=== PATIENT | male | born 1980 | race Caucasian/White ===

== ENCOUNTER 2019-12-31 07:44 | Outpatient (CLI) | payer BC, SELFPAY ==
--- NOTE | ~2019-12-31 | US_ITS ---
US right upper quadrant INDICATION: Right upper quadrant abdominal pain PROCEDURE: Realtime right upper abdominal ultrasound. COMPARISON: No prior studies for comparison. FINDINGS: The pancreas is normal without focal mass or pancreatic ductal dilation. Liver echotexture is increased, consistent with fatty infiltration. There is normal directional flow in the portal ve in. The gallbladder is normal without stones, gallbladder wall thickening or pericholecystic fluid. Comm on bile duct measures 4.7 mm. No sonographic Valentine's sign. IMPRESSION: 1: Fatty infiltration of the liver. Reviewed, dictated and finalized at location A.
== END 2019-12-31 07:45 | disposition home or self-care (01) ==
DX: R10.811 Right upper quadrant abdominal tenderness (principal)
CPT/HCPCS: 76705

== ENCOUNTER 2020-01-13 14:02 | Emergency (ER) | payer BC, SELFPAY ==
--- NOTE | ~2020-01-13 | XR_ITS ---
XR chest 2V DATE: 01/13/2020 15:01 INDICATION: Hyperglycemia. TECHNIQUE: PA and lateral views COMPARISON: 10/09/2017 two-view chest FINDINGS: Normal heart size. No hilar or mediastinal enlargement. No pulmonary infiltrate or consolidation, pleural effusion or pulmonary vascular congestion or pneumo thorax. There is mild/moderate degenerative spurring of the thoracic spine. IMPRESSION: No active cardiac pulmonary disease Reviewed, dictated and finalized at location A.
[2020-01-13 14:25] VITALS: BP 159/97; PULSE 66; RESP 20; TEMP 37.1; O2SAT 97
--- NOTE | 2020-01-13 14:41 | ECG_ITS ---
Measurements Intervals [place] Rate: 72 P: 39 AL: 181 QRS: 6 QRSD: 102 T: 20 QT: 366 QTc: 401 Interpretive Statements SINUS RHYTHM DELAYED PRECORDIAL R/S TRANSITION INFERIOR INFARCT, AGE INDETERMINATE BASELINE WANDER- III, AVF, V4-V6 ABNORMAL ECG Electronically Signed On 01-14-2020 7:11:25 CDT by Arie Slaughter D.O.
[2020-01-13 15:12] LABS: Hematocrit 43.9 % (40.0-54.0); Mean Corpuscular HGB Conc 34.2 g/dL (32.0-36.0); Mean Corpuscular Hemoglobin 28.8 pg (27.0-31.0); Mean Corpuscular Volume 84.3 fL (78.0-102.0); Mean Platelet Volume 8.9 fl (8.7-11.0); Platelet Count Result 197 K/mm3 (150-420); Red Blood Count 5.21 M/mm3 (4.70-6.10); Red Cell Distribution Width 12.3 % (11.6-14.4)
[2020-01-13 15:32] LABS: Alanine Aminotransferase 43 U/L (16-63); Albumin Level 3.4 g/dL (3.4-5.0); Alkaline Phosphatase 94 U/L (46-116); Anion Gap 11.2 mmol/L (7-16); Aspartate Amino Transferase 19 U/L (15-37); Bilirubin,Total 0.2 mg/dL (0.00-1.00); Blood Urea Nitrogen 18 mg/dL (7-18); Calcium 9.1 mg/dL (8.5-10.1); Carbon Dioxide 29 mmol/L (21-32); Chloride 102 mmol/L (98-108); Estimated CRCL calculation 108 ml/min; Estimated Glomerular Filt Rate > 60; Glucose 362 mg/dL (70-99); Osmolality Calculated 302 mOsm/kg (285-295); Potassium 4.2 mmol/L (3.5-5.1); Sodium 138 mmol/L (136-145); Total Protein 7.2 g/dL (6.4-8.2)
[2020-01-13] MEDS: INSULIN HUMAN REGULAR (*BKC) 100 UNITS/ML 8 UNITS SUB-Q (15:57)
[2020-01-13 16:03] VITALS: BP 155/84; PULSE 78; RESP 20; O2SAT 94
[2020-01-13 16:24] LABS: Bilirubin Urine Negative (Negative); Blood Urine Negative (Negative); Glucose Urine UA 3+ (Negative); Ketones Urine Negative (Negative); Leukocyte Esterase Ur Negative (Negative); Nitrate Urine Negative (Negative); Protein Urine Negative (Negative); Specific Grav Ur 1.015 (1.010-1.020); Urobilinogen Urine 0.2 mg/dL (0.2-1.0); pH Urine 6.5 (5.0-8.0)
[2020-01-13 16:33] LABS: Glucose Point of Care 210 (65-105)
--- NOTE | 2020-01-13 16:34 | PC.NURSE ---
pt states feeling much better . denies shakiness.
[2020-01-13 16:37] LABS: Color Urine Yellow (Yellow)
[2020-01-13 16:37] LABS: Troponin I < 0.02 ng/mL (0.00-0.056)
[2020-01-13 16:38] LABS: Add Urine Microscopic? YES; Appearance Urine Sl Cloudy (Clear); RBC Urine None seen /hpf (0-2); Squamous Epithelial Cell Urine Few /hpf (Few); WBC Urine 21-30 /hpf (0-3)
[2020-01-13 16:39] LABS: Bacteria Urine 2+ /hpf
--- NOTE | 2020-01-13 16:50 | ED.GENADULT ---
HPI - General Adult General Chief complaint: Unspecified Stated complaint: blood sugar high Source: patient Mode of arrival: ambulatory Limitations: no limitations History of Present Illness HPI narrative: This is a 39-year-old male diabetic presents with some mild have a blood sugar, at home he had a blood sugar reading of over 400 and presented to the emergency department with some no current symptoms no chest pain no shortness of breath no fever chills no nausea vomiting or abdominal pain is a known diabetic and recently his primary care physician stop the Jardiance. Does have a follow-up with his primary care in approximately 2 to 3 days. Onset (ago): hour(s) Relieving factors: none Exacerbating factors: none Associated symptoms: denies other symptoms Related Data Home Medications Medication Instructions Recorded Confirmed hydrocodone-acetaminophen 1 tablet PO DAILY PRN 01/13/20 01/13/20 losartan 25 mg PO DAILY 01/13/20 01/13/20 prazosin 1 mg PO DAILY 01/13/20 01/13/20 propranolol 40 mg PO BID 01/13/20 01/13/20 sertraline 200 mg PO DAILY 01/13/20 01/13/20 triamterene-hydrochlorothiazid 1 tablet PO DAILY 01/13/20 01/13/20 Allergies Allergy/AdvReac Type Severity Reaction Status Date / Time clarithromycin Allergy Unknown nausea, Verified 07/29/16 15:03 vomiting, abd cramps Review of Systems Review of Systems: All systems reviewed & are unremarkable except as noted in HPI and below PMFSH Past Medical History Medical History Diabetes mellitus Family History Family History Other Family history of malignant neoplasm Hypertension Social History Social History Smoking status: Never smoker Alcohol intake: current Exam Const: General: no acute distress Nutritional Appearance: well nourished and obese Orientation/consciousness: patient oriented x3 HENMT: Head: normal to inspection Eyes: Pupils: Equal, round and reactive pupils present Neck: Neck: normal visual inspection Chest: Chest palpation & inspection: normal inspection of the chest Resp: Effort & Inspection: normal respiratory effort Auscultation: clear to auscultation bilaterally Cardio: Rate: regular rate Rhythm: regular rhythm GI: GI Palp: Yes Soft to palpation : Testes: Testes normal Back/Spine/Pelvis: Back: no CVA tenderness Neuro: General: patient oriented x3, moves all extremities, no meningeal signs and no focal motor deficits Extrem: General: normal to inspection Psych: Appearance: grossly normal Mental Status: mental status grossly normal Affect: normal affect Thought content: Yes Normal thought content present Course Course Emergency Course: Patient blood sugar improved after 8units of insulin, his blood sugar currently reads at 210. Vital Signs Vital signs: Vital Signs Temperature 37.1 C 01/13/20 14:25 Pulse Rate 66 01/13/20 14:25 Respiratory Rate 20 01/13/20 14:25 Blood Pressure 159/97 H 01/13/20 14:25 Pulse Oximetry 97 01/13/20 14:25 Temperature 37.1 C 01/13/20 14:25 Pulse Rate 78 01/13/20 16:03 Respiratory Rate 20 01/13/20 16:03 Blood Pressure 155/84 H 01/13/20 16:03 Pulse Oximetry 94 01/13/20 16:03 Medical Decision Making Vital Signs Vital Signs: Vital Signs Temperature 37.1 C 01/13/20 14:25 Pulse Rate 66 01/13/20 14:25 Respiratory Rate 20 01/13/20 14:25 Blood Pressure 159/97 H 01/13/20 14:25 Pulse Oximetry 97 01/13/20 14:25 Temperature 37.1 C 01/13/20 14:25 Pulse Rate 78 01/13/20 16:03 Respiratory Rate 20 01/13/20 16:03 Blood Pressure 155/84 H 01/13/20 16:03 Pulse Oximetry 94 01/13/20 16:03 Lab Data Result diagrams: 01/13/20 15:08 01/13/20 15:08 Labs: Lab Results 01/13/20 01/13/20 01/13/20 Range/Units 1
[2020-01-13 17:00] VITALS: BP 183/98; PULSE 83; RESP 20; TEMP 37.1; O2SAT 97
== END 2020-01-13 17:17 | disposition home or self-care (01) ==
PROVIDERS: Emergency Provider Emergency Medicine
DX: E11.9 Type 2 diabetes mellitus without complications (principal); N39.0 Urinary tract infection, site not specified
CPT/HCPCS: 36415; 36600; 71046; 80053; 81001; 82948; 84484; 85027; 93005; 99283; 99284; J1815

== ENCOUNTER 2020-02-09 12:21 | Outpatient (CLI) | payer BC, SELFPAY ==
--- NOTE | ~2020-02-09 | MR_ITS ---
EXAMINATION: MR brain IAC wo/w con EXAM DATE: 02/09/2020 14:12 INDICATION: Hearing loss, getting cochlear implants. TECHNIQUE: Multi-sequential, multiplanar MR images of the brain, brainstem, internal auditory canals were obtained without contrast. Whole brain sagittal T1, axial diffusion, gradient echo (T2*), T1, T 2, FLAIR sequences obtained. High resolution coronal 3-D FIESTA, coronal T1 FSE, axial T1 FSPGR of t he internal auditory canals. Patient was then injected with 10 cc Multihance contrast intravenously. Postcontrast axial and coronal T1 weighted whole brain, axial and coronal high resolution T1 IAC seq uences obtained. There is no prior study for comparison. FINDINGS: No evidence of mastoid or middle ear opacification. The 7th/8th cranial nerve complexes a re symmetric, normal in course and caliber. No cerebellopontine angle masses. Posterior fossa unrem arkable. There is left mastoid effusion, and probably small amount of right mastoid opacity. There are no are as of restricted diffusion to suggest acute infarction. There is no acute hemorrhage seen on the T2* , a hemosiderin sensitive sequence. No intraparenchymal brain mass. The ventricles are normal in siz e. There are no extra-axial collections. Flow voids are seen in the cerebral arteries on the T2-damien ghted sequences consistent with their expected patency. The orbits are unremarkable. Soft tissue is unremarkable. There are no areas of abnormal enhancement on the postcontrast images. IMPRESSION: 1. Left mastoid effusion, smaller amount of right mastoid fluid. Reviewed, dictated and finalized at location A.
[2020-02-09 12:54] LABS: Estimated Glomerular Filt Rate > 60
== END 2020-02-09 12:22 | disposition home or self-care (01) ==
DX: H90.3 Sensorineural hearing loss, bilateral (principal); Z01.818 Encounter for other preprocedural examination
CPT/HCPCS: 70553; A9577

== ENCOUNTER 2020-11-21 09:06 | Outpatient (CLI) | payer OTHER, SELFPAY ==
--- NOTE | ~2020-11-21 | US_ITS ---
EXAMINATION: US retroperitoneal comp DATE: 11/21/2020 09:34 INDICATION: Left flank pain. Hematuria. TECHNIQUE: Multiple ultrasound grayscale images of the kidneys were obtained. COMPARISON: CT abdomen and pelvis 11/21/2020 FINDINGS: The right kidney measures 11.1 x 6.7 x 6.0 cm. The left kidney measures 11.8 x 7.2 x 6.2 cm. The kidn eys demonstrate normal parenchymal echogenicity. There is no hydronephrosis. The bladder is normal. IMPRESSION: 1. Normal kidneys. No hydronephrosis. Reviewed, dictated and finalized at location A. DINE OPERATOR
--- NOTE | ~2020-11-21 | CT_ITS ---
EXAMINATION: CT abdomen pelvis wo con DATE: 11/21/2020 09:25 INDICATION: Left flank pain. Hematuria. TECHNIQUE: Computed tomography (CT) of the abdomen and pelvis was performed without intravenous contr ast. Automated exposure control and iterative reconstruction technique were employed. The dose-length product was 1489.07 mGy-cm. COMPARISON: CT abdomen and pelvis 07/18/2017 FINDINGS: The visualized portions of the lung bases demonstrate minimal atelectasis on the right. No pleural effusion. The heart size is normal. No pericardial effusion. There is diffuse hepatic steatos is. The gallbladder, spleen, pancreas, adrenal glands, and kidneys are normal. There is no urolithias is. There are no dilated loops of bowel. There are no pathologically enlarged lymph nodes. There is n o free intraperitoneal fluid. There is mild thoracolumbar spondylosis. IMPRESSION: 1. No etiology for the patient's symptoms. Reviewed, dictated and finalized at location A. NING TECH
== END 2020-11-21 09:07 | disposition home or self-care (01) ==
PROVIDERS: PCP Family Medicine; Visit Provider Family Medicine
DX: R31.9 Hematuria, unspecified (principal); R10.9 Unspecified abdominal pain; M54.9 Dorsalgia, unspecified
CPT/HCPCS: 74176; 76770

== ENCOUNTER 2020-11-26 11:55 | Emergency (ER) | payer MEDICARE, SELFPAY ==
--- NOTE | ~2020-11-26 | CT_ITS ---
EXAMINATION: CT abdomen pelvis wo con EXAM DATE: 11/26/2020 12:41 INDICATION: Left flank pain, worsening. TECHNIQUE: Spiral CT of the abdomen and pelvis was performed without contrast. Axial, coronal and sag ittal images were reviewed. The dose-length product (DLP) for this examination was 1506.79 mGy-cm. The exposure was tailored according to patient size (auto mA exposure control), and iterative reconst ruction (ASIR) was used as additional dose reduction technique. Comparison is made to prior examinati on from 11/21/2020, 07/18/2017. FINDINGS: There is no nephrolithiasis or hydronephrosis. The prostate is unremarkable. The bladder is unremarkable. The liver, spleen, adrenal glands and pancreas are unremarkable. Gallbladder is u nremarkable. No biliary obstruction. Mildly enlarged lymph nodes identified along each internal ahmet ac chain, on the left at 1.8 x 1.1 cm. No other enlarged lymph nodes identified. These are likely constance ctive, with slight decrease in size compared to CT 2017. The appendix is normal. The stomach and small bowel are unremarkable. There is expected amount of c olonic stool. No free intraperitoneal gas. The heart is normal in size. There are no pericardial or pleural effusions. Right middle lobe subsegmental atelectasis. There are no osteoblastic or ost eolytic lesions identified. IMPRESSION: 1. No nephrolithiasis, hydronephrosis or acute intra-abdominal findings. 2. Chronic mild pelvic lymphadenopathy likely reactive. Reviewed, dictated and finalized at location B. LE TOE SNIPPING MACHINE OPERATOR
[2020-11-26] MEDS: KETOROLAC 30 MG/ML VIAL (*BKC) IM (12:32)
[2020-11-26] MEDS: ONDANSETRON INJ 4 MG/2 ML VIAL IV PUSH (12:32)
[2020-11-26] MEDS: MORPHINE SULFATE (*CRX) 4 MG/ML INJ IV PUSH (12:32)
[2020-11-26 12:34] VITALS: BP 157/98; PULSE 83; RESP 20; TEMP 36.3; O2SAT 98
--- NOTE | 2020-11-26 12:47 | ED.GENADULT ---
HPI - General Adult General Chief complaint: Urogenital-Male Stated complaint: kidney stone Source: patient and family Mode of arrival: ambulatory Limitations: no limitations History of Present Illness HPI narrative: Carli is a 40M with a PMH of nephrolithiasis, PUD, headaches, anxiety/depression/PTSD, IBS, HTN, DMII that came into ED with left flank pain. Severe left flank pain that radiates to his abdomen associated with dysuria but no hematuria. No new CP, SOB, melena, and hematochezia. Admits nausea but no vomiting. No trauma. Had a similar episode to this last week. Related Data Home Medications Medication Instructions Recorded Confirmed sertraline 200 mg PO DAILY 01/13/20 11/26/20 triamterene-hydrochlorothiazid 1 tablet PO DAILY 01/13/20 11/26/20 bupropion HCl 150 mg tablet,12 hr 150 mg PO BID 09/22/20 11/26/20 sustained-release dicyclomine 20 mg tablet 20 mg PO QID 09/22/20 11/26/20 empagliflozin 25 mg tablet 25 mg PO DAILY 09/22/20 11/26/20 famotidine 20 mg tablet 20 mg PO BID tablet 09/22/20 11/26/20 furosemide 20 mg tablet 20 mg PO QAM 09/22/20 11/26/20 galcanezumab-gnlm 120 mg/mL 120 mg SUBCUT MONTHLY 09/22/20 11/26/20 subcutaneous pen injector insulin glargine 100 unit/mL (3 10 unit SUBCUT DAILY ml 09/22/20 11/26/20 mL) subcutaneous pen losartan 100 mg tablet 100 mg PO DAILY 09/22/20 11/26/20 omeprazole 40 mg capsule,delayed 40 mg PO BID 09/22/20 11/26/20 release oxcarbazepine 300 mg tablet 300 mg PO BID 09/22/20 11/26/20 prazosin 1 mg capsule 1 mg PO QID cap 09/22/20 11/26/20 ubrogepant 50 mg tablet 50 mg PO ONCE 09/22/20 11/26/20 Allergies Allergy/AdvReac Type Severity Reaction Status Date / Time clarithromycin Allergy Unknown nausea, Verified 11/20/20 14:11 vomiting, abd cramps Review of Systems Constitutional: Constitutional: Reports no additional constitutional complaints, Denies chills and Denies fever(s) Eyes: Eyes: Reports no additional eye complaints ENT: Reports system reviewed and no additional complaints, except as documented Cardiovascular: Cardiovascular: Reports no additional cardiovascular complaints Respiratory: Respiratory: Reports no additional respiratory complaints Gastrointestinal: Gastrointestinal: Reports as per HPI Genitourinary: Genitourinary: Reports as per HPI Musculoskeletal: Musculoskeletal: Reports no additional musculoskeletal complaints Integumentary/Breasts: Skin/Breast: Reports system reviewed and no additional complaints, except as docu Neurologic: Reports system reviewed and no additional complaints, except as documented Psychiatric: Psychiatric: Reports no additional psychiatric complaints Endocrine: Endocrine: Reports no additional endocrine complaints Hematologic/Lymphatic: Hematologic/Lymphatic: Reports no additional hematologic/lymphatic complaints Allergic/Immunologic: Allergic/Immunologic: Reports no additional allergic/immunologic complaints [facility] Past Medical History Medical History Depression Diabetes mellitus Headache, chronic migraine without aura Hypertension IBS (irritable bowel syndrome) Obesity, Class III, BMI 40-49.9 (morbid obesity) PTSD (post-traumatic stress disorder) Torsion of testicle Family History Family History Other Family history of malignant neoplasm Hypertension Social History Social History Smoking status: Never smoker Alcohol intake: current Gender identity (if verbalized by the patient): Male Exam Const: General: alert; No confusion Orientation/consciousness: patient oriented x3 Limitations: No altered mental status Other: In mild to moderate distress HENMT: Other: Normocephalic, atraumatic, EOMI Eyes: Conjunctivae: conjunctivae normal Pupils: Equal, round and reactive pupils present Neck: Neck: normal
[2020-11-26 13:04] LABS: Add Urine Microscopic? YES; Appearance Urine Clear (Clear); Basophils Absolute Auto 0.03 K/mm3 (0.00-0.10); Basophils Percent Auto 0.7 % (0.0-1.0); Bilirubin Urine Negative (Negative); Blood Urine Negative (Negative); Color Urine Yellow (Yellow); Eosinophils Absolute Auto 0.08 K/mm3 (0.02-0.50); Eosinophils Percent Auto 1.9 % (1.0-6.0); Glucose Urine UA 3+ (Negative); Hematocrit 44.3 % (40.0-54.0); Hemoglobin 15.1 g/dL (14.0-18.0); Immature Granulocyte Absolute 0.01 K/mm3 (0.00-0.00); Immature Granulocyte Percent A 0.2 % (0.0-0.0); Ketones Urine Negative (Negative); Leukocyte Esterase Ur Negative (Negative); Lymphocytes Absolute Auto 1.41 K/mm3 (1.10-4.50); Lymphocytes Percent Auto 33.5 % (18.0-42.0); Mean Corpuscular HGB Conc 34.1 g/dL (32.0-36.0); Mean Corpuscular Hemoglobin 28.9 pg (27.0-31.0); Mean Corpuscular Volume 84.7 fL (78.0-102.0); Mean Platelet Volume 9.1 fl (8.7-11.0); Monocytes Absolute Auto 0.39 K/mm3 (0.10-0.90); Monocytes Percent Auto 9.3 % (2.0-11.0); Neutrophils Absolute Auto 2.3 K/mm3 (1.7-7.2); Neutrophils Percent Auto 54.4 % (50.0-70.0); Nitrate Urine Negative (Negative); Platelet Count Result 177 K/mm3 (150-420); Protein Urine Negative (Negative); Red Blood Count 5.23 M/mm3 (4.70-6.10); Red Cell Distribution Width 12.4 % (11.6-14.4); Specific Grav Ur 1.015 (1.010-1.020); Urobilinogen Urine 0.2 mg/dL (0.2-1.0); White Blood Count 4.2 K/mm3 (4.8-10.8); pH Urine 6.5 (5.0-8.0)
[2020-11-26 13:08] LABS: Bacteria Urine None seen /hpf; RBC Urine None seen /hpf (0-2); Squamous Epithelial Cell Urine Rare /hpf (Few); WBC Urine None seen /hpf (0-3)
[2020-11-26 13:19] LABS: Alanine Aminotransferase 49 U/L (16-63); Albumin Level 3.5 g/dL (3.4-5.0); Alkaline Phosphatase 90 U/L (46-116); Anion Gap 9 mmol/L (8-16); Aspartate Amino Transferase 15 U/L (15-37); Bilirubin,Total 0.4 mg/dL (0.00-1.00); Blood Urea Nitrogen 16 mg/dL (7-18); Calcium 9.2 mg/dL (8.5-10.1); Carbon Dioxide 29 mmol/L (21-32); Chloride 100 mmol/L (98-108); Estimated CRCL calculation 111 ml/min; Estimated Glomerular Filt Rate > 60; Glucose 335 mg/dL (70-99); Osmolality Calculated 300 mOsm/kg (285-295); Potassium 3.7 mmol/L (3.5-5.1); Sodium 138 mmol/L (136-145); Total Protein 7.2 g/dL (6.4-8.2)
[2020-11-26 13:20] LABS: Lipase 55 U/L (73-393)
[2020-11-26 14:40] VITALS: BP 145/105; PULSE 76; RESP 20; TEMP 36.7; O2SAT 98
== END 2020-11-26 16:00 | disposition home or self-care (01) ==
PROVIDERS: Emergency Provider Family Medicine; PCP Family Medicine
DX: R10.9 Unspecified abdominal pain (principal)
CPT/HCPCS: 36415; 74176; 80053; 81001; 83690; 85025; 87086; 96372; 96374; 96375; 99283; 99284; J1885; J2270; J2405

== ENCOUNTER 2021-10-09 09:25 | Outpatient (CLI) | payer MEDICARE, SELFPAY ==
--- NOTE | ~2021-10-09 | XR_ITS ---
XR_CERV2-3V_CR DATE: 10/09/2021 09:53 INDICATION: Left neck pain and left shoulder pain one month after fall TECHNIQUE: AP, lateral, open-mouth, swimmer views COMPARISON: 09/07/2014 cervical spine FINDINGS: C1 and C2 are normally aligned and the odontoid process is intact. There is mild degenerative disc disease and minimal retrolisthesis at C4-5. There is moderate degenerative disc disease with anterior posterior spurring at C5-6. The C6-7 level is not well demonstrated. There are bilateral elongated C7 transverse processes. No fracture or dislocation, locked facet or prevertebral soft tissue swelling is evident. IMPRESSION: Multilevel degenerative disc disease Reviewed, dictated and finalized at Location A. Reviewed, dictated and finalized at location A. EAR STATION OPERATOR
--- NOTE | ~2021-10-09 | XR_ITS ---
XR shoulder LT min 2V DATE: 10/09/2021 09:53 INDICATION: Left shoulder pain one month after fall TECHNIQUE: 4 views COMPARISON: None FINDINGS: No fracture or dislocation, periosteal reaction or bone destruction. Normal alignment at th e acromioclavicular and glenohumeral joints. IMPRESSION: No significant abnormality Reviewed, dictated and finalized at location A. MANUFACTURING COORDINATOR IMPRESSION: No significant abnormality
== END 2021-10-09 09:26 | disposition home or self-care (01) ==
LOC: CHSIMG 09:28
PROVIDERS: PCP Family Medicine; Visit Provider Family Medicine
DX: M25.512 Pain in left shoulder (principal)
CPT/HCPCS: 72040; 73030

== ENCOUNTER 2021-10-13 13:55 | Outpatient (RCR) | payer MEDICARE, SELFPAY ==
--- NOTE | 2021-10-13 15:32 | PTOPEVAL ---
Thank you for referring Carli Gates to [facility].? The patient is scheduled to be seen for therapy? _2___x/week for 8 visits. Please review, sign, date and return this plan of care JEANNIE. I agree with and certify that the following plan of care is medically necessary. Referring Physician Date Admitting Provider: Attending Provider: Jairo Kirby DO Referring Provider: *PT Outpatient Evaluation Start: 10/13/21 14:04 Freq: Status: Active Protocol: Document 10/13/21 14:05 CARLOS A (Rec: 10/13/21 15:31 CARLOS A [id number]) Therapy Assessment Status Assessment Status Assessment Status Evaluation Outpatient Past Medical History Cardiovascular History Hx Hypertension Yes Gastrointestinal History Hx Gastroesophageal Reflux Disease Yes Endocrine History Hx Diabetes Yes HEENT History Hx Ear Surgery Yes: cochler implarnt left Hx Other HEENT Disorders Yes: hearing aids x2 Psychosocial History Hx Anxiety Yes Hx Depression Yes Hx Post Traumatic Stress Disorder Yes Evaluation Information Problem Diagnosis left shoulder pain Onset 09/04/21 Subjective Information Pt. reports that on 09/04/21 Query Text:As Reported By Patient/ he tripped over a drum case Family and tried to catch himself with his left arm. He reports that pain has gotten worse since the incident. He reports that he went to the doctor last week and underwent xray. He reports that xray was negative. He describes pain around the shoulder, shooting into the left shoulder blade, down the arm into the hand, with numbness in the hand. He reports that numbness in the hand will come and go, but pain in the shoulder is constant. Constant pain is described in the lateral brachial region. He reports that he has tried over the counter medication, but they do not reduce his pain. He reports that he cannot sleep due to his pain. He reports that lifting a small item overhead will also increase his pain. He has to
--- NOTE | 2021-10-28 07:52 | PCPTNOTE ---
Mr. Gates attended 2 treatment sessions from 10/13/21 to 10/15/21. He contacted the clinic stating that he underwent MRI which revealed a small tear in the rotator cuff. His doctor asked him to hold therapy at this time and he will be discharged.
== END 2021-10-20 18:00 | disposition home or self-care (01) ==
LOC: CHSPT 13:55
PROVIDERS: PCP Family Medicine; Visit Provider Family Medicine
DX: M25.512 Pain in left shoulder (principal)
CPT/HCPCS: 97014; 97110; 97140; 97161; G0283

== ENCOUNTER 2021-10-27 10:02 | Outpatient (CLI) | payer MEDICARE, SELFPAY ==
--- NOTE | ~2021-10-27 | MR_ITS ---
EXAMINATION: MR shoulder LT wo con DATE: 10/27/2021 11:26 INDICATION: Left shoulder pain post injury 2 months prior TECHNIQUE: Magnetic resonance imaging (MRI) of the left shoulder was performed without intravenous co ntrast. Sequences included axial PD-weighted FS FSE, coronal oblique PD-weighted FS FSE, coronal obli que T2-weighted FS FSE, sagittal PD-weighted FS FSE, and sagittal T1-weighted SE. COMPARISON: Left shoulder radiographs dated 10/09/2021 FINDINGS: Coracoacromial arch: The acromion undersurface is curved in morphology (type II). The coracoacromial ligament is normal. M ild to moderate acromioclavicular osteoarthritis with subarticular cystic change at the lateral head of the left clavicle. Rotator cuff: Mild tendinopathy at the distal supraspinatus subscapularis tendons without discrete tear. The infras pinatus and teres minor tendons are normal. Normal rotator cuff muscle bulk and signal. Biceps tendon, glenoid labrum and glenohumeral cartilage: Long head of the biceps tendon is normal. There is a superior, anterior to posterior tear of the aníbal oid labrum (SLAP tear) beginning anteriorly at the 1:00 position at 8 normal anterosuperior sublingua l recess and extending posteriorly to the 9:00 position of the posterior glenoid labrum. There is mil d partial-thickness cartilage loss at the central glenoid and along the inferomedial aspect of the hu meral head. Fluid: Physiologic amount of fluid in the glenohumeral joint and biceps tendon sheath. No loose osteochondra l bodies. No abnormal fluid signal in the subacromial/subdeltoid bursa to suggest bursitis. Bones: Normal marrow signal with no edema, fracture or abnormal marrow replacing process. IMPRESSION: 1. Mild glenohumeral osteoarthritis with SLAP tear extending from the anterosuperior to the posterior glenoid labrum. 2. Mild supraspinatus and subscapularis tendinopathy without discrete tear. 3. Mild to moderate acromioclavicular osteoarthritis. Reviewed, dictated and finalized at location A. SITIONAL CARE NURSE IMPRESSION: 1. Mild glenohumeral osteoarthritis with SLAP tear extending from the anterosup erior to the posterior glenoid labrum. 2. Mild supraspinatus and subscapularis tendinopathy without discrete tear. 3. Mild to moderate acromioclavicular osteoarthritis.
== END 2021-10-27 10:03 | disposition home or self-care (01) ==
LOC: CHSIMG 10:03
PROVIDERS: PCP Family Medicine; Visit Provider Nurse Practitioner Family
DX: M25.512 Pain in left shoulder (principal)
CPT/HCPCS: 73221

== ENCOUNTER 2021-12-01 15:02 | Outpatient (RCR) | payer MEDICARE, SELFPAY | END 2021-12-11 09:38 | disposition home or self-care (01) | LOC: CHSPT 15:02 | PROVIDERS: Visit Provider Orthopaedic Surgery | DX: S43.439A Superior glenoid labrum lesion of unspecified shoulder, initial encounter (principal); S43.422A Sprain of left rotator cuff capsule, initial encounter | CPT/HCPCS: 97014; 97110; 97162; G0283 ==

== ENCOUNTER 2022-06-07 09:07 | Outpatient (CLI) | payer MEDICARE, SELFPAY ==
--- NOTE | ~2022-06-07 | XR_ITS ---
EXAMINATION: XR chest 2V 06/07/2022 09:42 INDICATION: Flulike symptoms for 3 weeks PROCEDURE: 2 view chest COMPARISON: Comparison to multiple prior studies sequentially, with oldest reviewed study dated 02/2015. FINDINGS: The lungs are clear. The cardiomediastinal silhouette is within normal limits. There are no pleural effusions. There is no pneumothorax suspected. IMPRESSION: 1: NO ACUTE CARDIOPULMONARY DISEASE. Reviewed, dictated and finalized at location A.
[2022-06-07 09:17] LABS: Hematocrit 43.5 % (40.0-54.0); Hemoglobin 15.2 g/dL (14.0-18.0); Mean Corpuscular HGB Conc 34.9 g/dL (32.0-36.0); Mean Corpuscular Hemoglobin 29.2 pg (27.0-31.0); Mean Corpuscular Volume 83.5 fL (78.0-102.0); Platelet Count Result 196 K/mm3 (150-420); Red Blood Count 5.21 M/mm3 (4.70-6.10); White Blood Count 4.4 K/mm3 (4.8-10.8)
[2022-06-07 09:57] LABS: Monoscreen Negative (Negative); Negative Monotest Control Negative (Negative); Positive Monotest Control Positive (Positive)
[2022-06-07 10:11] LABS: Alanine Aminotransferase 30 U/L (16-63); Albumin Level 3.6 g/dL (3.4-5.0); Alkaline Phosphatase 89 U/L (46-116); Anion Gap 4 mmol/L (8-16); Aspartate Amino Transferase 14 U/L (15-37); Bilirubin,Total 0.4 mg/dL (0.00-1.00); Blood Urea Nitrogen 18 mg/dL (7-18); Calcium 8.9 mg/dL (8.5-10.1); Carbon Dioxide 30 mmol/L (21-32); Chloride 101 mmol/L (98-108); Estimated Glomerular Filt Rate > 60; Magnesium 1.7 mg/dL (1.8-2.4); Osmolality Calculated 298 mOsm/kg (285-295); Potassium 4.3 mmol/L (3.5-5.1); Sodium 135 mmol/L (136-145); Total Protein 6.5 g/dL (6.4-8.2)
[2022-06-07 10:18] LABS: Thyroid Stimulating Hormone Reflex 1.04 u/IU/mL (0.36-3.74)
[2022-06-07 10:53] LABS: Vitamin B12 877 pg/mL (193-986)
[2022-06-07 10:56] LABS: Folic Acid > 20.0 ng/mL (8.6->20); Glucose 412 mg/dL (70-99)
[2022-06-09 14:42] LABS: NIL 0.02 IU/mL; Quantiferon TB Plus, 1T NEGATIVE (NEGATIVE)
[2022-06-11 11:52] LABS: ANA Cascade Screen Negative (Negative)
== END 2022-06-07 09:08 | disposition home or self-care (01) ==
LOC: CHSLAB 09:09
PROVIDERS: PCP Family Medicine; Visit Provider Family Medicine
DX: R68.89 Other general symptoms and signs (principal); E53.8 Deficiency of other specified B group vitamins; E11.9 Type 2 diabetes mellitus without complications
CPT/HCPCS: 36415; 71046; 80053; 82607; 82746; 83735; 84443; 85027; 86038; 86308; 86480

== ENCOUNTER 2022-11-09 13:20 | Outpatient (CLI) | payer MEDICARE, SELFPAY ==
--- NOTE | ~2022-11-09 | US_ITS ---
EXAMINATION: US abdomen limited DATE: 11/09/2022 14:02 INDICATION: R10.9 - Unspecified abdominal pain TECHNIQUE: Multiple grayscale and Doppler ultrasound images of limited portions of the abdomen were o btained. COMPARISON: None available. FINDINGS: The visualized portions of the pancreas are normal. The liver is enlarged with increased ec hogenicity and normal echotexture. No surface nodularity. Normal hepatopetal flow in the main portal vein. The gallbladder is contracted with no pericholecystic fluid. 8 mm hyperechoic, nonshadowing, no ndependent focus in the gallbladder lumen. The common bile duct measures 4 mm. There was no sonograph ic Valentine sign. IMPRESSION: Echogenic liver, most commonly due to steatosis but also can be seen with hepatitis and fibrosis. Con tracted gallbladder which limits evaluation. 8 mm gallbladder polyp versus stone, consider repeat exa mination after appropriate preparation/fasting interval. Reviewed, dictated and finalized at location K. ICAL PATHOLOGIST IMPRESSION: Echogenic liver, most commonly due to steatosis but also can be seen with hepat itis and fibrosis. Contracted gallbladder which limits evaluation. 8 mm gallbla dder polyp versus stone, consider repeat examination after appropriate preparat ion/fasting interval.
[2022-11-09 13:41] LABS: Hemoglobin 15.8 g/dL (14.0-18.0); Mean Corpuscular HGB Conc 34.3 g/dL (32.0-36.0); Mean Corpuscular Hemoglobin 28.8 pg (27.0-31.0); Mean Corpuscular Volume 83.8 fL (78.0-102.0); Mean Platelet Volume 9.1 fl (8.7-11.0); Platelet Count Result 213 K/mm3 (150-420); Red Blood Count 5.49 M/mm3 (4.70-6.10)
[2022-11-09 13:42] LABS: Add Urine Microscopic? YES; Appearance Urine Clear (Clear); Bilirubin Urine Negative (Negative); Blood Urine Negative (Negative); Color Urine Light Yellow (Yellow); Glucose Urine UA 3+ (Negative); Ketones Urine Negative (Negative); Leukocyte Esterase Ur Negative (Negative); Nitrate Urine Negative (Negative); Protein Urine Negative (Negative); Urobilinogen Urine 0.2 mg/dL (0.2-1.0); pH Urine 6.5 (5.0-8.0)
[2022-11-09 13:49] LABS: Bacteria Urine None seen /hpf; RBC Urine None seen /hpf (0-2); Squamous Epithelial Cell Urine Rare /hpf (Few); WBC Urine None seen /hpf (0-3)
[2022-11-09 13:55] LABS: INR 0.9; Prothrombin Time 10.3 Seconds (9.50-12.10)
[2022-11-09 14:03] LABS: Alanine Aminotransferase 26 U/L (16-63); Albumin Level 3.6 g/dL (3.4-5.0); Alkaline Phosphatase 94 U/L (46-116); Anion Gap 7 mmol/L (8-16); Aspartate Amino Transferase 12 U/L (15-37); Bilirubin,Total 0.3 mg/dL (0.00-1.00); Blood Urea Nitrogen 17 mg/dL (7-18); CRP 0.7 mg/dL (0.0-0.9); Carbon Dioxide 29 mmol/L (21-32); Chloride 103 mmol/L (98-108); Estimated Glomerular Filt Rate > 60; Glucose 338 mg/dL (70-99); Lipase 27 U/L (16-77); Osmolality Calculated 302 mOsm/kg (285-295); Potassium 4.1 mmol/L (3.5-5.1); Sodium 139 mmol/L (136-145); Total Protein 6.9 g/dL (6.4-8.2)
[2022-11-09 14:08] LABS: Calcium 8.9 mg/dL (8.5-10.1)
== END 2022-11-09 13:21 | disposition home or self-care (01) ==
LOC: CHSLAB 13:22
PROVIDERS: PCP Family Medicine; Visit Provider Family Medicine
DX: R10.9 Unspecified abdominal pain (principal)
CPT/HCPCS: 36415; 76705; 80053; 81001; 83690; 85027; 85610; 86140

== ENCOUNTER 2022-12-28 15:01 | Outpatient (CLI) | payer MEDICARE, SELFPAY ==
[2022-12-28 15:27] LABS: Hemoglobin A1C 10.6 % (<5.7)
[2022-12-28 15:35] LABS: Alanine Aminotransferase 35 U/L (16-63); Albumin Level 3.7 g/dL (3.4-5.0); Alkaline Phosphatase 98 U/L (46-116); Anion Gap 9 mmol/L (8-16); Aspartate Amino Transferase 15 U/L (15-37); Bilirubin,Total 0.2 mg/dL (0.00-1.00); Blood Urea Nitrogen 21 mg/dL (7-18); Calcium 8.9 mg/dL (8.5-10.1); Carbon Dioxide 29 mmol/L (21-32); Chloride 104 mmol/L (98-108); Estimated Glomerular Filt Rate > 60; Glucose 332 mg/dL (70-99); Osmolality Calculated 310 mOsm/kg (285-295); Potassium 4.2 mmol/L (3.5-5.1); Sodium 142 mmol/L (136-145); Total Protein 6.8 g/dL (6.4-8.2)
[2022-12-28 15:36] LABS: CRP < 0.5 mg/dL (0.0-0.9)
== END 2022-12-28 15:02 | disposition home or self-care (01) ==
PROVIDERS: PCP Family Medicine; Visit Provider Family Medicine
DX: E11.9 Type 2 diabetes mellitus without complications (principal); R10.9 Unspecified abdominal pain
CPT/HCPCS: 36415; 80053; 83036; 86140

== ENCOUNTER 2022-12-30 10:22 | Outpatient (CLI) | payer MEDICARE, SELFPAY ==
--- NOTE | 2022-12-30 10:23 | ECG_ITS ---
Measurements Intervals [place] Rate: 70 P: 63 AL: 177 QRS: 45 QRSD: 104 T: -15 QT: 372 QTc: 404 Interpretive Statements SINUS RHYTHM PROBABLE INFERIOR MYOCARDIAL INFARCTION , OF INDETERMINATE AGE ABNORMAL ECG COMPARED TO ECG 01/13/2020 15:11:20 NO SIGNIFICANT CHANGES Electronically Signed On 12-31-2022 15:59:50 CDT by Evans Lou M.D.
== END 2022-12-30 10:23 | disposition home or self-care (01) ==
LOC: CHSCARD 10:23
PROVIDERS: PCP Family Medicine; Visit Provider Family Medicine
DX: R10.9 Unspecified abdominal pain (principal); R94.31 Abnormal electrocardiogram [ECG] [EKG]
CPT/HCPCS: 93005

== ENCOUNTER 2023-08-23 10:35 | Outpatient (CLI) | payer MEDICARE, SELFPAY ==
[2023-08-23 10:54] LABS: Basophils Absolute Auto 0.06 K/mm3 (0.00-0.10); Basophils Percent Auto 1.2 % (0.0-1.0); Eosinophils Absolute Auto 0.08 K/mm3 (0.02-0.50); Eosinophils Percent Auto 1.6 % (1.0-6.0); Hematocrit 48.3 % (40.0-54.0); Hemoglobin 16.1 g/dL (14.0-18.0); Immature Granulocyte Absolute 0.02 K/mm3 (0.00-0.00); Immature Granulocyte Percent A 0.4 % (0.0-0.0); Lymphocytes Absolute Auto 1.21 K/mm3 (1.10-4.50); Mean Corpuscular HGB Conc 33.3 g/dL (32.0-36.0); Mean Corpuscular Hemoglobin 28.7 pg (27.0-31.0); Mean Corpuscular Volume 86.1 fL (78.0-102.0); Mean Platelet Volume 8.7 fl (8.7-11.0); Monocytes Absolute Auto 0.41 K/mm3 (0.10-0.90); Monocytes Percent Auto 8.1 % (2.0-11.0); Neutrophils Absolute Auto 3.3 K/mm3 (1.7-7.2); Neutrophils Percent Auto 64.7 % (50.0-70.0); Platelet Count Result 198 K/mm3 (150-420); Red Blood Count 5.61 M/mm3 (4.70-6.10); Red Cell Distribution Width 12.4 % (11.6-14.4)
[2023-08-23 11:16] LABS: Anion Gap 6 mmol/L (8-16); Blood Urea Nitrogen 17 mg/dL (7-18); Calcium 9.3 mg/dL (8.5-10.1); Carbon Dioxide 31 mmol/L (21-32); Chloride 101 mmol/L (98-108); Estimated Glomerular Filt Rate > 60; Glucose 132 mg/dL (70-99); Osmolality Calculated 289 mOsm/kg (285-295); Potassium 4.5 mmol/L (3.5-5.1); Sodium 138 mmol/L (136-145)
== END 2023-08-23 10:36 | disposition home or self-care (01) ==
LOC: CHSLAB 10:39
PROVIDERS: PCP Family Medicine; Visit Provider Nurse Practitioner Family
DX: H92.02 Otalgia, left ear (principal); H65.199 Other acute nonsuppurative otitis media, unspecified ear
CPT/HCPCS: 36415; 80048; 85025

== ENCOUNTER 2023-09-02 09:59 | Outpatient (CLI) | payer MEDICARE, SELFPAY ==
--- NOTE | ~2023-09-02 | CT_ITS ---
EXAMINATION: CT IAC/mastoids BI wo con DATE: 09/02/2023 10:22 INDICATION: Otalgia, unspecified ear. TECHNIQUE: Computed tomography (CT) of the temporal bones was performed without intravenous contrast. Automated exposure control and iterative reconstruction technique were employed. The dose-length pro duct was 262.21 mGy-cm. COMPARISON: Head CT 02/28/2015 FINDINGS: RIGHT TEMPORAL BONE: The internal auditory canal, cochlea, vestibule, semicircular canals, vestibular aqueduct, carotid ca nal, jugular bulb, facial nerve course, ossicles, tympanic membrane are normal. There is dehiscence o f tegmen tympani. Material abuts the ossicles. Prussak space and scutum are normal. There is a mastoi d effusion. There is thickening of the tympanic membrane. The external auditory canal is normal. LEFT TEMPORAL BONE: Left internal auditory canal is larger than the right. There is a cochlear implant in expected positi on. There are changes of mastoidectomy with dehiscence of the vestibule. The mastoidectomy involves t he expected area of the semicircular canals. Vestibular aqueduct is normal. At least part of the incu s is absent. There is dehiscence of tegmen tympani. There is material in the tympanic cavity abutting the ossicles and material in the post mastoidectomy space. There is retraction of the tympanic membr ane. There are erosions or resection of scutum. The external auditory canal is normal. IMPRESSION: 1. Right otomastoid effusion. 2. Left-sided cochlear implant in expected position. 3. Left-sided mastoidectomy with dehiscence of the vestibule and resection of the expected area of th e semicircular canals and portions of the ossicular chain. Material in the tympanic cavity and post m astoidectomy space. Reviewed, dictated and finalized at location A. RPRISE SYSTEMS ADMINISTRATOR IMPRESSION: 1. Right otomastoid effusion. 2. Left-sided cochlear implant in expected position. 3. Left-sided mastoidectomy with dehiscence of the vestibule and resection of t he expected area of the semicircular canals and portions of the ossicular chain . Material in the tympanic cavity and post mastoidectomy space.
== END 2023-09-02 10:00 | disposition home or self-care (01) ==
LOC: CHSIMG 10:00
PROVIDERS: PCP Family Medicine; Visit Provider Nurse Practitioner Family
DX: J32.9 Chronic sinusitis, unspecified (principal); H92.01 Otalgia, right ear; Z96.21 Cochlear implant status; Z98.890 Other specified postprocedural states
CPT/HCPCS: 70480

== ENCOUNTER 2023-09-22 10:35 | Outpatient (CLI) | payer MEDICARE, SELFPAY ==
[2023-09-22 11:13] LABS: Creatinine Urine 79.53 mg/dL (40-278); MALB Creatinine Ratio 23.2 mg/g (0-30); Microalbumin Urine Random 18.5 mg/L
[2023-09-22 11:57] LABS: Alanine Aminotransferase 28 U/L (16-63); Albumin Level 3.7 g/dL (3.4-5.0); Alkaline Phosphatase 68 U/L (46-116); Anion Gap 6 mmol/L (8-16); Aspartate Amino Transferase < 10 U/L (15-37); Bilirubin,Total 0.3 mg/dL (0.00-1.00); Blood Urea Nitrogen 25 mg/dL (7-18); Calcium 9.2 mg/dL (8.5-10.1); Carbon Dioxide 32 mmol/L (21-32); Chloride 103 mmol/L (98-108); Cholesterol 170 mg/dL (0-200); Estimated Glomerular Filt Rate > 60; Glucose 118 mg/dL (70-99); HDL Direct 40 mg/dL (40-60); LDL Cholesterol Calculated 107 mg/dL (<130); Osmolality Calculated 297 mOsm/kg (285-295); Potassium 4.5 mmol/L (3.5-5.1); Sodium 141 mmol/L (136-145); Total Protein 6.6 g/dL (6.4-8.2); Triglycerides 117 mg/dL (0-150)
[2023-09-22 12:45] LABS: Thyroid Stimulating Hormone Reflex 0.73 u/IU/mL (0.36-3.74)
== END 2023-09-22 10:36 | disposition home or self-care (01) ==
LOC: CHSLAB 10:53
PROVIDERS: PCP Family Medicine; Visit Provider Nurse Practitioner
DX: E11.9 Type 2 diabetes mellitus without complications (principal); Z79.4 Long term (current) use of insulin
CPT/HCPCS: 36415; 80053; 80061; 82043; 84443

== ENCOUNTER 2024-03-09 08:26 | Outpatient (CLI) | payer MEDICARE, SELFPAY ==
[2024-03-09 08:40] LABS: Basophils Absolute Auto 0.05 K/mm3 (0.00-0.10); Basophils Percent Auto 1.1 % (0.0-1.0); Eosinophils Absolute Auto 0.07 K/mm3 (0.02-0.50); Eosinophils Percent Auto 1.6 % (1.0-6.0); Hematocrit 44.4 % (40.0-54.0); Hemoglobin 15.2 g/dL (14.0-18.0); Immature Granulocyte Absolute 0.01 K/mm3 (0.00-0.00); Immature Granulocyte Percent A 0.2 % (0.0-0.0); Lymphocytes Absolute Auto 1.22 K/mm3 (1.10-4.50); Lymphocytes Percent Auto 27.6 % (18.0-42.0); Mean Corpuscular HGB Conc 34.2 g/dL (32-36); Mean Corpuscular Hemoglobin 28.4 pg (27.0-31.0); Mean Corpuscular Volume 82.8 fL (78.0-102.0); Mean Platelet Volume 8.3 fl (8.7-11.0); Monocytes Absolute Auto 0.47 K/mm3 (0.10-0.90); Monocytes Percent Auto 10.6 % (2.0-11.0); Neutrophils Percent Auto 58.9 % (50.0-70.0); Platelet Count Result 201 K/mm3 (150-420); Red Blood Count 5.36 M/mm3 (4.70-6.10); White Blood Count 4.4 K/mm3 (4.8-10.8)
[2024-03-09 09:05] LABS: Alanine Aminotransferase 54 U/L (16-63); Albumin Level 3.2 g/dL (3.4-5.0); Alkaline Phosphatase 71 U/L (46-116); Anion Gap 6 mmol/L (4-12); Aspartate Amino Transferase 31 U/L (15-37); Bilirubin,Total 0.4 mg/dL (0.00-1.00); Blood Urea Nitrogen 22 mg/dL (7-18); CRP 0.6 mg/dL (0.0-0.9); Calcium 8.7 mg/dL (8.5-10.1); Carbon Dioxide 30 mmol/L (21-32); Chloride 105 mmol/L (98-108); Creatine Kinase 145 U/L (39-308); Estimated Glomerular Filt Rate > 60; Glucose 76 mg/dL (70-99); Osmolality Calculated 294 mOsm/kg (285-295); Potassium 3.9 mmol/L (3.5-5.1); Sodium 141 mmol/L (136-145); Total Protein 6.3 g/dL (6.4-8.2)
[2024-03-09 09:39] LABS: Erythrocyte Sedimentation Rate 22 mm/hr (0-15)
[2024-03-12 14:28] LABS: ANA Cascade Screen NEGATIVE (NEGATIVE)
== END 2024-03-09 08:27 | disposition home or self-care (01) ==
LOC: CHSLAB 08:27
PROVIDERS: PCP Family Medicine; Visit Provider Family Medicine
DX: M35.3 Polymyalgia rheumatica (principal); M79.642 Pain in left hand; M79.641 Pain in right hand
CPT/HCPCS: 36415; 80053; 82550; 83516; 85025; 85652; 86038; 86140; 86225; 86235

== ENCOUNTER 2024-05-23 09:33 | Outpatient (CLI) | payer MEDICARE, SELFPAY ==
--- NOTE | ~2024-05-23 | CT_ITS ---
EXAMINATION: CT IAC/mastoids BI w con DATE: 05/23/2024 12:15 INDICATION: Right ear pain. Chronic hearing loss. Possible mastoiditis. TECHNIQUE: Computed tomography (CT) of the temporal bones was performed without intravenous contrast. The dose-length product was 336.92 mGy-cm. COMPARISON: None FINDINGS: Mild mucosal thickening the bilateral ethmoid and maxillary sinuses. Visualized portion of the orbits are normal. Visualized portion of brain is unremarkable. LEFT TEMPORAL BONE: Postoperative change of prior left mastoidectomy with cochlear implant. There is opacification of the mastoidectomy bed, remaining mastoid air cells and majority the middle ear cavity with fluid versus soft tissue surrounding the malleus and stapes. The incus is absent. The external auditory canal is n ormal. The pars tensa of the tympanic membrane appears to remain intact. The pars flaccid is not visu alized and is likely either absent or retracted towards the epitympanum. There is erosion of the scut um. 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 Secondary cochlear implant the cochlea appears normal. The internal auditory canal, vestibular aqueduct and course of th e facial nerve are normal. RIGHT TEMPORAL BONE: The external auditory canal is normal. There is fluid in the middle ear cavity and in the majority of the mastoid air cells. This includes along the deep margin of the pars tensile of the tympanic membr ane and along the inferior and medial margins of the ossicular chain which appears otherwise normal a nd extending to the oval window. Minimal fluid in Prussak space along the intact pars flaccida of the tympanic membrane. There appears to be mild erosion of the scutum. The internal auditory canal, coch lyndsey, vestibule, semicircular canals, vestibular aqueduct, and facial nerve course are normal. IMPRESSION: 1. Right otomastoiditis effusion as detailed above. 2. Postoperative change of prior left mastoidectomy with fluid and mastectomy space and left middle e ar cavity. The incus is absent which may be due to prior surgery with placement of a left sided cochl ear implant.. Reviewed, dictated and finalized at location A. IMPRESSION: 1. Right otomastoiditis effusion as detailed above. 2. Postoperative change of prior left mastoidectomy with fluid and mastectomy s pace and left middle ear cavity. The incus is absent which may be due to prior surgery with placement of a left sided cochlear implant..
[2024-05-23 10:01] LABS: Basophils Absolute Auto 0.03 K/mm3 (0.00-0.10); Basophils Percent Auto 0.7 % (0.0-1.0); Eosinophils Absolute Auto 0.06 K/mm3 (0.02-0.50); Eosinophils Percent Auto 1.5 % (1.0-6.0); Hematocrit 44.4 % (40.0-54.0); Hemoglobin 15.4 g/dL (14.0-18.0); Immature Granulocyte Absolute 0.02 K/mm3 (0.00-0.00); Immature Granulocyte Percent A 0.5 % (0.0-0.0); Lymphocytes Absolute Auto 0.99 K/mm3 (1.10-4.50); Lymphocytes Percent Auto 24.3 % (18.0-42.0); Mean Corpuscular HGB Conc 34.7 g/dL (32-36); Mean Corpuscular Hemoglobin 27.9 pg (27.0-31.0); Mean Corpuscular Volume 80.6 fL (78.0-102.0); Mean Platelet Volume 8.4 fl (8.7-11.0); Monocytes Absolute Auto 0.42 K/mm3 (0.10-0.90); Monocytes Percent Auto 10.3 % (2.0-11.0); Neutrophils Absolute Auto 2.56 K/mm3 (1.70-7.20); Neutrophils Percent Auto 62.7 % (50.0-70.0); Platelet Count Result 199 K/mm3 (150-420); Red Blood Count 5.51 M/mm3 (4.70-6.10); Red Cell Distribution Width 12.2 % (11.6-14.4); White Blood Count 4.1 K/mm3 (4.8-10.8)
[2024-05-23 10:58] LABS: Alanine Aminotransferase 32 U/L (6-50); Albumin Level 3.8 g/dL (3.5-5.1); Alkaline Phosphatase 78 U/L (38-126); Anion Gap 12 mmol/L (4-12); Aspartate Amino Transferase 26 U/L (17-59); Bilirubin,Total 0.3 mg/dL (0.2-1.3); Blood Urea Nitrogen 22 mg/dL (9-20); CRP 0.9 mg/dL (<1.0); Carbon Dioxide 26 mmol/L (22-30); Chloride 103 mmol/L (98-107); Estimated Glomerular Filt Rate > 60; Glucose 107 mg/dL (65-110); Osmolality Calculated 295 mOsm/kg (285-295); Sodium 141 mmol/L (137-145); Uric Acid 4.3 mg/dL (3.5-8.5)
== END 2024-05-23 09:34 | disposition home or self-care (01) ==
PROVIDERS: PCP Family Medicine; Visit Provider Family Medicine
DX: M10.9 Gout, unspecified (principal); H70.90 Unspecified mastoiditis, unspecified ear
CPT/HCPCS: 36415; 70481; 80053; 84550; 85025; 86140; Q9967

== ENCOUNTER 2024-09-13 11:57 | Outpatient (CLI) | payer MEDICARE, SELFPAY ==
[2024-09-13 13:07] LABS: CRP 0.7 mg/dL (0.0-0.9); Uric Acid 4.9 mg/dL (3.5-7.2)
[2024-09-13 13:10] LABS: Thyroid Stimulating Hormone Reflex < 0.01 u/IU/mL (0.36-3.74)
[2024-09-13 13:11] LABS: Free T4 Free Thyroxine Reflex 1.58 ng/dL (0.76-1.46)
[2024-09-13 13:52] LABS: Rheumatoid Factor Screen Negative (Negative)
[2024-09-14 16:25] LABS: ANA Cascade Screen NEGATIVE (NEGATIVE)
[2024-09-14 22:59] LABS: HLA B27 NEGATIVE (NEGATIVE)
== END 2024-09-13 11:58 | disposition home or self-care (01) ==
LOC: CHSLAB 11:58
PROVIDERS: PCP Family Medicine; Visit Provider Family Medicine
DX: M13.0 Polyarthritis, unspecified (principal); M79.641 Pain in right hand; M79.642 Pain in left hand; E03.9 Hypothyroidism, unspecified
CPT/HCPCS: 36415; 83516; 84439; 84443; 84550; 86038; 86140; 86225; 86235; 86430; 86812

== ENCOUNTER 2024-09-26 10:25 | Outpatient (CLI) | payer MEDICARE, SELFPAY ==
[2024-09-26 12:23] LABS: Free T3 5.47 pg/mL (2.18-3.98); Free T4 Free Thyroxine 1.48 ng/dL (0.76-1.46); Thyroid Stimulating Hormone < 0.01 uIU/mL (0.36-3.74)
[2024-10-01 09:34] LABS: Thyroid Peroxidase Antibodies 4 IU/mL (<9)
== END 2024-09-26 10:26 | disposition home or self-care (01) ==
LOC: CHSLAB 10:28
PROVIDERS: PCP Family Medicine; Visit Provider Nurse Practitioner
DX: E05.90 Thyrotoxicosis, unspecified without thyrotoxic crisis or storm (principal)
CPT/HCPCS: 36415; 84439; 84443; 84445; 84481

== ENCOUNTER 2024-12-25 08:46 | Outpatient (CLI) | payer MEDICARE, SELFPAY ==
--- OUTSIDE RECORDS SUMMARY | 2024-12-25 09:28 | XMS_ITS | CONTINUITY OF CARE DOCUMENT ---
Author Name george vazquez Address Unknown Organization [facility] Address [id number] [place] [address] [address] [place] [address] Phone [phone] Care Team Providers Care National Facilities Manager Name Role Phone george vazquez Unavailable Unavailable INSURANCE PROVIDERS Payer name Policy type / Coverage type Percy red libertarian ID [id number] PPO Other [id number]
--- OUTSIDE RECORDS SUMMARY | 2024-12-25 09:28 | XMS_ITS | Clinical Summary ---
Author Organization [facility] Address [address] [place] [address] Phone Care Team Providers Care Manager Financial Name Role Phone Sanaz Zelaya MD Primary Care Provider [phone] Allergies Active Allergy Reactions Criticality Noted Date Comments Clarithromycin Anaphylaxis 10/24/2015 Medications buPROPion (WELLBUTRIN XL) 300 MG TABLET SR 24 HR XL tablet Take 300 mg by mouth every morning. Active HYDROcodone-acet aminophen (NORCO) 5-325 MG Tablet Take 1-2 Tabs by mouth every 4 hours as needed for Pain. 20 Tab 0 10/24/2015 Active Social History Tobacco Use Types Packs/Day Years Used Date Smoking Tobacco: Never Smokeless Tobacco: Never Alcohol Use Standard Drinks/Week Comments No 0 (1 standard drink = 0.6 oz pur e alcohol) Sex and Gender Information Value Date Recorded Sex Assigned at Not on file Legal Sex Male 11:09 PM CDT Gender Identity Not on file Sexual Orientation Not on file Last Filed Vital Signs Vital Sign Reading Time Taken Comments Blood Pressure 134/82 12/17/2015 2:51 AM CDT Pulse 82 12/17/2015 2:51 AM CDT Temperature 36.8 C (98.3 F) 12/17/2015 2:51 AM CDT Respiratory Rate 18 12/17/2015 2:51 AM CDT Oxygen Saturation 98% 12/17/2015 2:51 AM CDT Inhaled Oxygen Concentration - - Weight 130.6 kg (288 lb) 12/17/2015 2:51 AM CDT Height 175.3 cm (5' 9 ) 12/17/2015 2:51 AM CDT Body Mass Index 42.53 12/17/2015 2:51 AM CDT Plan of Treatment Not on file Care Teams Manager Financial Relationship Specialty Start Date End Date Sanaz Zelaya MD [address] [place] [id number] PCP - General General Surgery 10/24/15
--- OUTSIDE RECORDS SUMMARY | 2024-12-25 09:28 | XMS_ITS | Clinical Summary ---
Author Organization [facility] Address Formerly [facility] [place] [address] Care Team Providers Care Mandrel Puller Name Role Phone Hazel Mancera BIOLOGICAL TECHNICIAN Primary Care Provider [phone] Social History Tobacco Use Types Packs/Day Years Used Date Smoking Tobacco: Never Assessed Sex and Gender Information Value Date Recorded Sex Assigned at Not on file Legal Sex Male 9:45 PM CDT Gender Identity Not on file Sexual Orientation Not on file Plan of Treatment Health Maintenance Due Date Last Done Comments Colorectal Cancer Screening Colonoscopy (10 Years) 1979 Annual Physical 1982 Hepatitis C 1997 DTaP, Tdap and Td Vaccines (1 - Tdap) 1998 Hepatitis B Vaccines (3 of 3 - 19+ 3-dose series) 11/15/2013 06/12/2013, 05/15/2013 COVID-19 Vaccine ( season) 2024 06/19/2022, 06/27/2021, 12/22/2020, Additional history exists Meningococcal Vaccine Aged Out 11/27/2019 No nima lily eligible based on patient's age to complete this topic Pneumococcal Vaccine: Pediatrics (0 to 5 Years) and At-Risk Patients (6 to 64 Years) Aged Out 11/27/2019 No longer eligible based on patient's age to complete this topic HPV Vaccines Aged Out No longer eligi ble based on patient's age to complete this topic Meningococcal B Vaccine Aged Out No l onger eligible based on patient's age to complete this topic RSV Immunizations Under 20 Months Aged Out No longer eligible based on patient's age to complete this topic Insurance [facility] Care Teams Mandrel Puller Relationship Specialty Start Date End Date Hazel Mancera NP [address] [place] [phone] PCP - General NURSE PRACTITIONER 11/22/22
== END 2024-12-25 08:47 | disposition home or self-care (01) ==
LOC: CHSLAB 08:57
PROVIDERS: PCP Family Medicine; Visit Provider Nurse Practitioner
DX: E05.90 Thyrotoxicosis, unspecified without thyrotoxic crisis or storm (principal)
CPT/HCPCS: 36415; 84445

== ENCOUNTER 2025-01-16 11:24 | Outpatient (CLI) | payer MEDICARE, SELFPAY ==
--- NOTE | ~2025-01-16 | XR_ITS ---
Cervical Spine: AP, lateral, oblique, open-mouth views Clinical History: Pain Findings: The normal lordotic curve is maintained. The vertebral bodies and posterior elements appea r intact. There is moderate degenerative disc narrowing at C5-C6. Probable left neural foraminal narr owing at C5-C6. Pre-vertebral soft tissues are unremarkable. Impression: Moderate degenerative changes at C5-C6. Reviewed, dictated and finalized at [facility]. Impression: Moderate degenerative changes at C5-C6.
--- OUTSIDE RECORDS SUMMARY | 2025-01-16 12:56 | XMS_ITS | Clinical Summary ---
Author Organization [facility] Address [address] [place] [address] Care Team Providers Care Chief Librarian Circulation Department Name Role Phone Jairo Kirby Primary Care Provider Allergies Active Allergy Reactions Criticality Noted Date Comments Clarithromycin Anaphylaxis,Hives,Vomiting High Medications losartan (COZAAR) 25 mg tabletIndication s:hypertension,5 0 mg in AM Take 2 tablets (50 mg total) by mouth every morning 1 07/12/20 19 Active dicyclomine (BENTYL) 20 mg tabletIndication s:Irritable Bowel Syndrome Take 1 tablet (20 mg total) by mouth every 6 (six) hours as needed 11/01/19 20 Active furosemide (LASIX) 20 mg tabletIndication s:hypertension Take 1 tablet (20 mg total) by mouth every morning 02/08/20 20 Active famotidine (PEPCID) 20 mg tabletIndication s:gastroesophage al reflux disease Take 1 tablet (20 mg total) by mouth every morning Active Dexilant 60 mg capsuleIndicatio ns:Treatment of Non-Bleeding Gastric Disorder Take 1 capsule (60 mg total) by mouth nightly 11/07/19 21 Active sucralfate (CARAFATE) 1 gram tabletIndication s:Heartburn,Refl ux Esophagitis Take 1 tablet (1 g total) 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 Do not exceed 30 mg in 24 hours. 9 tablet 3 07/05/20 23 Active prochlorperazine (COMPAZINE) 10 mg tablet Take 1 tablet (10 mg total) by mouth 3 (three) times a day as needed (nausea/migraine) 20 tablet 2 07/05/20 23 Active Baqsimi 3 mg/actuation spray,non-aeroso lIndications:pat ient with diabetes mellitus at risk of hypoglycemia Administer 1 spray into one nostril as needed (use for severe hypoglycemia requiring the assistance of another.) E11.65 2 each 11 11/02/19 24 Active rosuvastatin (CRESTOR) 20 mg tablet Take 1 tablet (20 mg total) by mouth nightly 90 tablet 3 12/02/19 24 Active dapagliflozin propanediol (FARXIGA) 10 mg tablet Take 1 tablet (10 mg total) by mouth daily E11.65 90 tablet 3 12/09/19 24 Active TRUEplus Pen Needle 32 gauge x 5/32 needle USE TO INJECT INSULIN UP TO 4TIMES/DAY. USE FOR INSULIN PUMP FAILURE E11.65 400 each 3 05/01/20 24 Active insulin glargine (LANTUS) 100 unit/mL (3 mL) pen for injection Inject 25 Units under the skin daily Use for insulin pump failure. E11.65 15 mL 3 05/15/20 24 Active Omnipod Dash Pods, Gen 4, cartridge CHANGE POD every THREE DAYS 30 each 3 05/30/20 24 Active galcanezumab-gnl m (Emgality Pen) 120 mg/mL pen injectorIndicati ons:Migraine without aura and without status migrainosus, not intractable INJECT 120MG (1 PEN) UNDER THE SKIN EVERY 30 DAYS 3 mL 3 06/26/20 24 Active insulin lispro-aabc (LYUMJEV) 100 unit/mL vial for injection Infuse 75 units total daily dose per Omnipod dash. E11.65 70 mL 4 08/20/20 24 Active OXcarbazepine (TRILEPTAL) 150 mg tablet Take 1 tablet (150 mg total) by mouth daily 07/27/20 24 Active buPROPion XL (WELLBUTRIN XL) 300 mg 24 hr tablet 04/30/20 24 Active prazosin (MINIPRESS) 2 mg capsule 07/27/20 24 Active insulin lispro (HumaLOG, ADMELOG) 100 unit/mL pen for injection INJECT 9 UNITS SUBCUTANEOUSLY THREE TIMES A DAY BEFORE MEALS PUMP FAILURE. 15 mL 3 10/01/19 25 Active methIMAzole (TAPAZOLE) 10 mg tabletIndication s:Hyperthyroidis m Take 1 tablet (10 mg total) by mouth daily For newly diagnosed hyperthyroidism. 30 tablet 11 10/02/19 25 026 Active Savella 12.5 mg (5)-25 mg(8)-50 mg(42) tablets,dose pack 10/04/19 25 Active Dexcom G7 Sensor device 1 Device continuously . Change every 10 days. E11.65 10 each 3 11/12/19 25 Active methocarbamoL (ROBAXIN) 500 mg tabletIndication s:Sacroiliitis Take 1 tablet (500 mg total) by mouth nightly 30 tablet 01/08/20 25 025 Active tirzepatide (Mounjaro) 2.5 mg/0.5 mL pen injector injectionIndicat ions:type 2 diabetes mellitus Inject 0.5 mL (2.5 mg total) under the skin every 7 days For 4 doses. E11.9 2 mL 01/11/20 25 Active tirzepatide (Mounjaro) 5 mg/0.5 mL pen injector injection Inject 0.5 mL (5 mg total) under the skin every 7 days For 4 doses and then increase mounjaro to 7.5mg weekly. E11.9 2 mL 01/11/20 25 Active tirzepatide (Mounjaro) 7.5 mg/0.5 mL pen injector injectionIndicat ions:type 2 diabetes mellitus Inject 0.5 mL (7.5 mg total) under the skin every 7 days And we will titrate as needed. E11.9 2 mL 11 01/11/20 25 Active blood-glucose,re ceiver,cont (Dexcom G7 Cryptanalyst) misc 1 Device continuously To continuously monitor blood sugar e10.65 1 each 1 04/25/20 25 Active blood-glucose meter,continuous (Dexcom G7 Cryptanalyst) misc 1 Device continuously To continuously monitor blood sugar e10.65 1 each 1 12/05/19 24 025 Discontin ued(Reord er) Active Problems Problem Noted Date Diagnosed Date Severe obesity 10/10/2024 Hyperthyroidism 10/10/2024 Assessment & Plan (10/10/2024 2:59 PM BABBITTER): This is a chronic condition which is not at goal of TSH between 0.3 to 4.2 mclUnits/ml Latest Reference Range & Units 09/13/24 00:00 09/26/24 00:00 Scribed TSH 0.36 - 3.74 mcU/mL 0.36 - 3.74 mcU/mL 0.01 ! (E) 0.01 ! (E) 0.01 ! (E) !: Data is abnormal (E): External lab result Continue methimazole 10 mg po daily in am Repeat TSH in 2 months at [facility]. Prescription sent to hospital lab Hyperlipidemia associated with type 2 diabetes zehra jiménez 12/02/2023 Assessment & Plan (10/10/2024 3:01 PM BABBITTER): This is a chronic condition which is elevated, not at goal . Goal is LDL less than 70 Continue rosuvastatin Encouraged to eat healthy, include fresh fruits and vegetables daily and avoid eating fried foods more than once per week. Assessment & Plan (03/12/2024 11:53 AM CDT): This is a chronic condition which is not at goal . Goal is LDL less than 70 Continue rosuvastatin Encouraged to eat healthy, include fresh fruits and vegetables daily and avoid eating fried foods more than once per week. Encouraged to take medications as prescribed. Assessment & Plan (12/02/2023 9:38 AM CDT): This is a chronic condition which is not at goal of LDL less than 70 Start rosuvastatin Encouraged to eat healthy, include fresh fruits and vegetables daily and avoid eating fried foods more than once per week. Encouraged to take medications as prescribed. Type 2 diabetes mellitus wit h hypoglycemia without coma, with long-term current use of insulin 09/01/2023 Assessment & Plan (10/10/2024 3:06 PM BABBITTER): This is a chronic condition which is at goal with hypoglycemia . Goal is less than 7%. Personally reviewed most recent A1c - Lab Results Component Value Date HGBA1C 5.4 10/10/2024 Personally reviewed POC blood sugar- at goal of 80-180 Lab Results Component Value Date POCGLU 122 10/10/2024 Medication- continue Farxiga 10 mg daily, Continues omnipod with humalog insulin: basal- decreased 1 units/hr, sens-35, carb ratio-7, target-110- correction over 120. Has presets boluses. Continue rosuvastatin 20 mg p.o. daily at HS. Continue methimazole 10 mg daily Did not tolerate- metformin abd pain, diarrhea, Rybelsus - upset stomach Monitor blood sugar continuously with Dexcom cgm. Encouraged annual eye exam. Monofilament foot exam completed. Protective senses - intact eGFR- greater than 60 Kidney function-normal Urine microalbumin/creatinine ratio - at goal. Goal is <30 Continue losartan, prazosin Assessment & Plan (03/12/2024 11:56 AM CDT): This is a chronic condition which is at goal with hypoglycemia . Goal is less than 7%. 7% hyperglycemia per Dexcom 7 download Personally reviewed most recent A1c - Lab Results Component Value Date HGBA1C 4.9 03/12/2024 Personally reviewed POC blood sugar- at goal of 80-180 Lab Results Component Value Date POCGLU 106 03/12/2024 Medication- continue jardiance 25mg daily, omnipod with humalog insulin: basal- decreased 0.9 units/hr, sens-35, carb ratio-7, target-100. Has presets boluses. Continue rosuvastatin 20 mg p.o. daily at HS Did not tolerate- metformin abd pain, diarrhea, Rybelsus - upset stomach Monitor blood sugar continuously with dexcom 7 cgm. Encouraged annual eye exam. Monofilament foot exam completed. Protective senses intact. Personally reviewed CMP eGFR- >60 Kidney function-normal Urine microalbumin/creatinine ratio - at goal. Goal is <30 Continue triamterene/hydrochlorothiazide, Lasix, losartan, prazosin Assessment & Plan (12/02/2023 9:30 AM CDT): This is a chronic condition which is at goal of less than 7%. Personally reviewed most recent A1c - Lab Results Component Value Date HGBA1C 5.7 12/01/2023 Personally reviewed POC blood sugar- at goal 80-180 Lab Results Component Value Date POCGLU 136 12/01/2023 Medication- continue jardiance 25mg daily, omnipod- 1.25 units/hr, sens-28, carb ratio-7.5, target-100 Has presets boluses. Monitor blood sugar continuously with freestyle cheryl 3 sensor. Encouraged annual eye exam. Monofilament foot exam completed. protective senses intact Personally reviewed CMP eGFR- >60 Kidney function- normal Urine microalbumin/creatinine ratio - at goal <30 treated with losartan, Lasix, triamterene/hydrochlorothiazide, prazosin B/P today- at goal of <140/90. continue osartan, Lasix, triamterene/hydrochlorothiazide, prazosinACE/ARB Personally reviewed lipid panel. Not at Goal of less than 70. Not on statin therapy Assessment & Plan (09/01/2023 10:46 AM BABBITTER): This is a chronic condition which is at goal of less than 7%. Personally reviewed most recent A1c - Lab Results Component Value Date HGBA1C 6.7 09/01/2023 Personally reviewed POC blood sugar- at goal 80-180 Lab Results Component Value Date POCGLU 138 09/01/2023 Medication- continue jardiance 25mg daily, omnipod- 0.65 units/hr with presets boluses. Monitor blood sugar continuously with freestyle cheryl 3 sensor. Encouraged annual eye exam. Monofilament foot exam completed. protective senses intact Personally reviewed CMP eGFR- Kidney function- normal, abnormal Urine microalbumin/creatinine ratio - not at goal <30 treated with Lasix, losartan, triamterene /hydrochlorothiazide B/P today- at goal of <140/90. continue Lasix, losartan, triamterene /hydrochlorothiazide Personally reviewed lipid panel. Not at Goal of less than 70. Not on statin therapy. Omnipod dash Insulin pump in place 09/01/2023 Assessment & Plan (01/10/2025 3:40 PM CDT): This is a chronic condition which is 12/28/2024 to 01/10/2025 Type of insulin pump- omnipod dash Pump settings : Basal -decrease to 1 IC -7 ISF -35 Active insulin time 3hrs. TARGET GLUCOSE -110-120 Avg Total daily insulin-1096 units Avg daily basal -29 units (26%) Avg daily bolus -80 units (74%) Interpretation- average glucose 137. 100% time in range. Encouraged to avoid hypoglycemia no blood sugars less than 100 . Assessment & Plan (10/10/2024 3:04 PM BABBITTER): This is a chronic condition which is stable, controlled at goal. Download reviewed. From 09/27/2024 to 10/10/2024 Type of insulin pump- omnipod dash Pump settings : Basal -decrease to 1 IC -7 ISF -35 Active insulin time 3hrs. TARGET GLUCOSE -110-120 Avg Total daily insulin-106 units Avg daily basal -32 units (30%) Avg daily bolus -74 units (70%) Interpretation- average glucose 165. 100% time in range. Encouraged to avoid hypoglycemia no blood sugars less than 100 . Assessment & Plan (03/12/2024 11:55 AM CDT): This is a chronic condition which is stable, controlled at goal. Download reviewed. From 03/06/24 to Type of insulin pump- omnipod dash Pump settings : Basal -decrease to 0.9 IC -7 ISF -35 Active insulin time 3hrs. TARGET GLUCOSE -100-110 Avg Total daily insulin-86 units Avg daily basal -30 units (34%) Avg daily bolus -57 units (66%) . Assessment & Plan (12/02/2023 9:32 AM CDT): This is a chronic condition which is stable, controlled at goal. Download reviewed. From 11/25/23 to 12/01/23 Type of insulin pump- omnipod dash Pump settings : Basal -1.25 IC -7.5 ISF -28 Active insulin time 3hrs. TARGET GLUCOSE -100-110 Avg Total daily insulin-76 units Avg daily basal -29 units (39%) Avg daily bolus -47 units (61%) . Assessment & Plan (09/01/2023 11:03 AM BABBITTER): This is a chronic condition which is stable, controlled at goal. Download reviewed. From 08/19/2023 to 09/01/2023 Type of insulin pump- omnipod dash Pump settings : Basal -0.65 IC -9 ISF -33 Active insulin time 3hrs. TARGET GLUCOSE -100-110 Avg Total daily insulin-52 units Avg daily basal -15.5 units (30%) Avg daily bolus - 37 units (70%) . Dexcom 7 continuous glucose monitoring device Assessment & Plan (01/10/2025 3:38 PM CDT): Continuous glucose monitor (cgm) applied from 12/28/2024 to 01/10/2025 This device was placed for monitor and treatment of blood sugar. Interpretation of data- average glucose 115. in target range 93%. 3% hypoglycemia. 4% hyperglycemia Assessment & Plan (10/10/2024 3:02 PM BABBITTER): Continuous glucose monitor (cgm) applied from 09/27/2024 to 10/10/2024 This device was placed for monitor and treatment of blood sugar. Interpretation of data- average glucose 120. in target range 91%. 5% hypoglycemia. 4% hyperglycemia Assessment & Plan (03/12/2024 11:56 AM CDT): Continuous glucose monitor (cgm) applied from 02/28/2024 to 03/12/2024 This device was placed for monitor and treatment of blood sugar. Interpretation of data- average glucose 105, in target range 92%, 7% hypoglycemia, 1% hyperglycemia Assessment & Plan (12/02/2023 9:34 AM CDT): Continuous glucose monitor (cgm) applied from 11/18/2023 to 12/01/2023 This device was placed for monitor and treatment of blood sugar. Reports ongoing issues with freestyle Cheryl 3 staying on and being accurate Has contacted the company directly and had several replacement Interpretation of data- average glucose 120, in target range 95%, 0 hypoglycemia, 5% hyperglycemia Assessment & Plan (09/01/2023 11:04 AM BABBITTER): Continuous glucose monitor (cgm) applied from 08/19/2023 to 09/01/2023 This device was placed for monitor and treatment of blood sugar. Interpretation of data- average glucose 147, in target range 86%, 0 hypoglycemia, 14% hyperglycemia Cochlear implant in place 05/30/2020 Assessment & Plan (05/30/2020 12:07 PM CDT): Left otalgia after CI/labyrinthectomy. 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 Augmentin one week. RTC for re-evaluation if not improving. He is also meeting with Arlen Gore for CI check today. Sensorineural hearing loss (SNHL) of both ears 0 01/29/2020 Overview (01/29/2020): Added automatically from request for surgery [id number] Migraine with aura and witho ut status migrainosus, not intractable 09/06/2019 Hypertension associated with type 2 diabetes mali litus 09/06/2019 Assessment & Plan (10/10/2024 3:01 PM BABBITTER): This is a chronic condition which is elevated, not at goal upon arrival to the office. At goal after rest. Goal is less than 140/90 Continue losartan, prazosin Encouraged to monitor weight and B/P at home. Assessment & Plan (03/12/2024 11:53 AM CDT): This is a chronic condition which was not at goal upon arrival but at goal after 15 minutes of rest.. Goal is less than 140/90 Personally reviewed labs. Continue triamterene/hydrochlorothiazide, Lasix, losartan, prazosin Encouraged to monitor weight and B/P at home. Explained correct way to take blood pressure. - After 5 minutes of sitting calmly with arm supported. Encouraged to void caffeine and excessive alcohol consumption as this will elevate B/P Encouraged to take medications as prescribed. Assessment & Plan (12/02/2023 9:35 AM CDT): This is a chronic condition which is at goal of less than 140/90 Personally reviewed labs. Continue Lasix, losartan, prazosin, triamterene/hydrochlorothiazide Encouraged to monitor weight and B/P at home Encouraged to take medications as prescribed. Explained correct way to take blood pressure. - After 5 minutes of sitting calmly with arm supported. Encouraged to void caffeine and excessive alcohol consumption as this will elevate B/P Assessment & Plan (09/01/2023 11:00 AM BABBITTER): This is a chronic condition which is at goal of less than 140/90 Personally reviewed labs. Continue Lasix, losartan, triamterene/hydrochlorothiazide Encouraged to monitor weight and B/P at home Encouraged to take medications as prescribed. Class 3 severe obesity due t o excess calories with serious comorbidity and body mass index (BMI) of 40.0 to 44.9 in adult 09/06/2019 Assessment & Plan (10/10/2024 3:01 PM BABBITTER): This is a chronic condition which continues 19 lbs. Weight gain since last office visit Encouraged healthy eating which includes a low carb diet. Avoiding processed foods, sweets and fried foods. Encouraged 30 minutes of walking at least 5 days per week Discussed that exercise can be broken down into small sessions- for example 2- 15 minutes sessions or 3- 10 minutes sessions. Assessment & Plan (12/02/2023 9:34 AM CDT): This is a chronic condition which has worsened 7 lb weight gain since last office visit Consider healthy eating and exercise Assessment & Plan (09/01/2023 10:59 AM BABBITTER): This is a chronic condition which continues Encouraged healthy eating and exercise Vestibular migraine 02/19/2019 Meniere's disease 09/04/2018 Mixed hearing loss, bilateral 08/18/2018 Assessment & Plan (12/14/2019 2:22 PM CDT): Right middle ear effusion- ear tube placed. Left ear Meniere's disease- he is planning a left labyrinthectomy and cochlear implant in the future with Dr. Anguiano. Resolved Problems Problem Noted Date Diagnosed Date Resolved Date Chronic otitis media 08/26/2022 025 Meniere's disease of left ear 01/29/2020 01/19/2021 Overview (01/29/2020): Added automatically from request for surgery [id number] Chronic seromucinous otitis media, left 07/09/2019 08/26/2022 Sensorineural hearing loss of both ears 08/18/2018 11/19/2024 Encounters Date Type Department Care Team Description 01/14/[address] [facility] at the [address] [address] Tam Hsu MD [facility] Preprocedure 01/14/2025 Results Follow-Up [facility] Diabetes Endocrine Care at [address] [address] Arlen Welsh NP 01/10/2025 3:40 PM CDT Lab [facility] Out[facility] - Outpatient Center at [address] [address] Hyperthyroidism 01/10/2025 3:00 PM CDT Office Visit [facility] Diabetes Endocrine Care at [address] [address] Arlen Welsh, RUBEN Type 2 diabetes mellitus with hypoglycemia without coma, with long-term current use of insulin (HCC) (Primary Dx); Hyperthyroidism; Hypertension associated with type 2 diabetes mellitus (HCC); Hyperlipidemia associated with type 2 diabetes mellitus (HCC); Omnipod dash Insulin pump in place; Dexcom 7 continuous glucose monitoring device; Class 3 severe obesity due to excess calories with serious comorbidity and body mass index (BMI) of 40.0 to 44.9 in adult (HCC) 01/10/2025 Results Follow-Up [facility] at the [address] [place] [address] Reggie Ta NP 01/07/2025 10:15 AM CDT - 01/07/2025 11:59 PM CDT Hospital Encounter [facility] ([facility]) [address] [place] [address] Lumbar radiculopathy Discharge Disposition: Discharge to home or self care 01/07/2025 8:17 AM CDT - 01/07/2025 11:59 PM CDT Hospital Encounter [facility] at the [facility] [address] [place] [address] Reggie Ta NP Sacroiliitis (Primary Dx); Fibromyalgia; Lumbar radiculopathy; Meniere's disease of right ear Discharge Disposition: Discharge to home or self care 01/02/2025 8:40 AM CDT Office Visit [facility] ([facility]) - [facility] ENT [address] [place] [address] [place] [address] Alon Anguiano MD Cochlear implant in place (Primary Dx); Meniere's disease of both ears 12/11/2024 4:00 PM CDT Procedure visit [facility] Otolaryngology [address] [place] [address] [place] [address] Filomena Paez Au.D. Sensorineural hearing loss, bilateral (Primary Dx) 11/19/2024 9:15 AM BABBITTER Lab [facility] [address] [place] [address] Fibromyalgia; Polyarthritis 11/19/2024 8:42 AM BABBITTER - 11/19/2024 11:59 PM BABBITTER Hospital Encounter [facility] [address] [address] Gout, unspecified cause, unspecified chronicity, unspecified site; Polyarthritis Discharge Disposition: Discharge to home or self care 11/19/2024 8:00 AM BABBITTER Office Visit [facility] Rheumatology [address] [place] [address] Irena Mayer, RUBEN Fibromyalgia; Polyarthritis from Last 3 Months Immunizations Immunization Administration Dates Next Due Hep B Vaccine 06/12/2013,05/15/2013 Influenza, Quadrivalent, Split, Intramuscular Influenza, Quadrivalent, Spl it, Preservative Free, Intramuscular 06/14/2020,07/12/2019 Influenza, Trivalent, IM (MDV) 06/27/2021,2012 Meningococcal MCV4P (Menactra) 11/27/2019 Pneumococcal Polysaccharide PPV23 11/27/2019 Surgical History Surgery Date Site/Laterality Comments MYRINGOTOMY W/ TUBES Bilateral x 9 REDUCTION OF TORSION OF TESTIS 09/19/2005 - 09/18/2006 R ight LIVER BIOPSY 09/19/2019 - 09/18/2020 COLONOSCOPY 09/19/2016 - 09/18/2017 ESOPHAGOGASTRODUODENOSCOPY 09/19/2016 - 09/18/2017 LABYRINTHOTOMY 02/15/2020 Left COCHLEAR IMPLANT 01/18/2020 - 02/17/2020 Left WISDOM TOOTH EXTRACTION 09/19/2001 - 09/18/2002 CHOLECYSTECTOMY Jan 19 2023 COCHLEAR IMPLANT REVISION July 26 2022 Medical History Medical History Date Comments HL (hearing loss) Migraine brother and fath er Depression PTSD (post-traumatic stress disorder) Hypertension IBS (irritable bowel syndrome) Type 2 diabetes mellitus (HCC) Vertigo Fatty liver GERD (gastroesophageal reflu x disease) Motion sickness Tinnitus 1989 Gout 2023 Hearing aid worn 02/14/2020 Thyroid disease Hyperthyroidism diag nosed in ladt several months Fibromyalgia, primary 2024 Family History Medical History Relation Name Comments Migraines Brother Jorge L Arthritis Father Tha Gates Cancer Father Tha Gates lung ca w/ met s Hypertension Father Tha Lawsnashannon Migraines Father Tha Lawsnashannon Osteoarthritis Father Tha Lawsnashannon Rheum arthritis Father Tha Lawsnashannon Arthritis Mother Laureen Klobnashannon Rashes / Skin problems Mother Laureen Klobnak Rheum arthritis Mother Laureen Klobnashannon Anesthesia problems Neg Hx Relation Name Status Comments Brother Jorge L Alive Father Tha Klobnak Mother Laureen Gates Alive Social History Tobacco Use Types Packs/Day Years Used Date Smoking Tobacco: Never Passive Smoke Exposure: Past Smokeless Tobacco: Never Tobacco Cessation:Counseling Given: Not Answered Alcohol Use Standard Drinks/Week Comments Not Currently 0 (1 standard drink = 0.6 oz pur e alcohol) History AUDIT-C Answer Date Recorded Q1: How often do you have a drink containing alcohol? Never 01/07/2025 Q2: How many drinks containi ng alcohol do you have on a typical day when you are drinking? Patient does not drink Frequency of Binge Drinking Not on file 12/19 Sex and Gender Information Value Date Recorded Sex Assigned at Not on file Legal Sex Male 8:29 PM BABBITTER Gender Identity Male 10/17/2020 1:52 PM BABBITTER Sexual Orientation Straight 10/17/2020 1: 52 PM BABBITTER Obstetrics History Last Filed Vital Signs Vital Sign Reading Time Taken Comments Blood Pressure 164/96 01/10/2025 2:46 PM CDT Pulse 80 01/07/2025 8:24 AM CDT Temperature 36.9 C (98.4 F) 01/07/2025 8:24 AM CDT Respiratory Rate 12 01/07/2025 8:24 AM CDT Oxygen Saturation 98% 01/07/2025 8:24 AM CDT Inhaled Oxygen Concentration - - Weight 132.6 kg (292 lb 6.4 oz) 01/10/2025 2:46 PM CDT Height 172.7 cm (5' 8 ) 01/10/2025 2:46 PM CDT Body Mass Index 44.46 01/10/2025 2:46 PM CDT Plan of Treatment Health Maintenance Due Date Last Done Comments Colon Cancer Screening-Colonoscopy 1979 Depression Screening 1979 Hepatitis C Screening 1979 DTaP/Tdap/Td Vaccine (1 - Tdap) 1990 Regular Well Visit/Exam 18-64 1997 Pneumococcal vaccine <65 (2 of 2 - PCV) 11/26/2020 11/27/2019 Covid-19 Vaccine ( - season) 2024 06/27/2021, 12/22/2020, 11/24/2020 Dilated Eye Exam 01/10/2025 01/10/2023 Influenza Vaccine (Season Ended) 2025 08/10/2023, 06/27/2021, 06/14/2020, Additional history exists Hemoglobin A1C 07/12/2025 01/10/2025, 09/20, 03/12/2024, Additional history exists Albumin Creatinine Ratio, Urine 10/10/2025 10/10/2024, 09/22/2023 Foot Exam 10/10/2025 10/10/2024, 02/18, 12/01/2023, Additional history exists Lipid Panel 10/10/2025 10/10/2024, 09/22/2023 eGFR 11/19/2025 11/19/2024, 09/20, 09/22/2023, Additional history exists Hepatitis B Screening Completed 06/12/2013, 013 HPV Vaccines Aged Out No longer eligi ble based on patient's age to complete this topic Goals Goal Patient Goal Type Associated Problems Recent Progress Patient-Stated? Author CCM Chronic Pain Care Plan Chronic Care Management Leatha Mora, RN Note: Problem: Chronic Pain Goals: 1. Minimize further functional decline 2. Maximize quality of life 3. Control pain Strategies: - Activity/exercise program recommendation - Conservative stepwise pain medicine strategy with multi-disciplinary approach - Recommend healthy lifestyle strategies and compensatory methods as needed Medical Devices Implanted Type Area Project Design Engineer Device Identifier Shelf Expiration Date Model / Serial / Lot Medtronic Inc Chelle 9.5mm 1.14mm 12mm Soft Ear T Flange Grommet Tube [id number] - [id number] Implanted:Qty : 1 on 07/26/2022 by Alon Anguiano MD at [facility] Tube Right: Cochlea Med[employer] Inc [id number] 01/26/2030 [id number] / / [id number] [employer] Julienes Ultra Hifocus 3d Mid Gaby Electrode Implant Cochlear Ci-1601-04 - [id number] - [id number] Implanted:Qty : 1 on 07/26/2022 by Alon Anguiano MD at [facility] Left: Cochlea [employer] [id number] 09/18/2024 CI-1601-04 / [id number] / Explanted Type Area Project Design Engineer Device Identifier Shelf Expiration Date Model / Serial / Lot Advanced [employer]ion[employer] Ci-1601-04 Marianela Ultra Hifocus 3d Mid Gaby Electrode Implant Cochlear - [id number] - [id number] Implanted:Qty : 1 on 02/15/2020 by Alon Anguiano MD at [facility] Explanted:Qty : 1 on 07/26/2022 at [facility] Left: Cochlea [employer] [id number] 12/17/2022 CI-1601-0 1415 / Procedures Procedure Name Priority Date/Time Associated Diagnosis Comments T3, FREE Routine 01/10/2025 3:50 PM CDT T4, FREE Routine 01/10/2025 3:50 PM CDT Hyperthyroidism THYROID FUNCTION CASCADE Routine 01/10/2025 3:50 PM CDT Hyperthyroidism POCT HEMOGLOBIN A1C Routine 01/10/2025 2 :49 PM CDT Type 2 diabetes mellitus with hypoglycemia without coma, with long-term current use of insulin (HCC) POCT GLUCOSE Routine 01/10/2025 2:47 PM CDT Type 2 diabetes mellitus with hypoglycemia without coma, with long-term current use of insulin (HCC) XR SPINE LUMBAR COMPLETE 4 OR MORE VIEWS Schedule Routine, Read Routine (OP Routine) 01/07/2025 10:26 AM CDT Lumbar radiculopathy EGFR Routine 11/19/2024 9:15 AM BABBITTER Fibromyalgia Polyarthritis URIC ACID Routine 11/19/2024 9:15 AM BABBITTER Fibromyalgia Polyarthritis CRP (ACUTE PHASE) Routine 11/19/2024 9:1 5 AM BABBITTER Fibromyalgia Polyarthritis ERYTHROCYTE SEDIMENTATION RATE Routine 11/19/2024 9:15 AM BABBITTER Fibromyalgia Polyarthritis COMPREHENSIVE METABOLIC PANEL Routine 11/19/2024 9:15 AM BABBITTER Fibromyalgia Polyarthritis CBC WITHOUT DIFFERENTIAL Routine 11/19/2024 9:15 AM BABBITTER Fibromyalgia Polyarthritis XR SACROILIAC JOINTS 3 OR MORE VIEWS Schedule Routine, Read Routine (OP Routine) 11/19/2024 8:56 AM BABBITTER Gout, unspecified cause, unspecified chronicity, unspecified site Polyarthritis XR HIP LEFT 2 OR 3 VIEWS Schedule Routine, Read Routine (OP Routine) 11/19/2024 8:56 AM BABBITTER Gout, unspecified cause, unspecified chronicity, unspecified site Polyarthritis LIPID PANEL Routine 10/10/2024 2:56 PM BABBITTER Type 2 diabetes mellitus with hypoglycemia without coma, with long-term current use of insulin (HCC) ALBUMIN CREATININE RATIO, URINE Routine 10/10/2024 2:56 PM BABBITTER Hyperlipidemia associated with type 2 diabetes mellitus (HCC) DIABETIC EYE EXAM Routine 01/10/2023 from Last 3 Months or Most Recently Relevant to Health Maintenance Results * (ABNORMAL) Thyroid Function Stephenson (01/10/2025 3:50 PM CDT) TSH <0.01(L) 0.30 - 4.20 mcIUnit/mL Comment:Testing performed by : [facility], [address] [place] [address]., [id number] Blood 01/10/2025 3:50 PM CDT 01/10/2025 7:08 PM CDT us Arlen Welsh RUG CLEANING SUPERVISOR LAB BLOOD ORDERABLES Final Resu lt HARRY [id number] [facility] Department [place] [address] * T3, free (01/10/2025 3:50 PM CDT) Free T3 3.7 2.0 - 4.4 pg/mL Comment:Testing performed by : [facility], [address] [place] [address]., [id number] Blood 01/10/2025 3:50 PM CDT 01/10/2025 7:44 PM CDT Narrative HARRY - 01/10/2025 11:30 PM CDT This test was reflexed from a Free T4 result. Arlen Welsh NP LAB BLOOD ORDERABLES Final Resu lt Performing Organization Address [facility] Co de Phone Number [place] [phone] [facility] [place] [address] * T4, free (01/10/2025 3:50 PM CDT) [facility] Free T4 1.22 0.90 - 1.70 ng/dL Comment:Testing performed by : [facility], [address] [place] [address]., [id number] Blood 01/10/2025 3:50 PM CDT 01/10/2025 7:44 PM CDT Arlen Welsh NP LAB BLOOD ORDERABLES Final Resu lt Performing Organization Address [facility] Co de Phone Number [place] [phone] [facility] [place] [address] * POCT hemoglobin A1c (01/10/2025 2:49 PM CDT) [facility] Hemoglobin A1C, POC 5.2 4.0 - 5.6 % Blood 01/10/2025 2:49 PM CDT us Arlen Welsh NP POINT OF CARE TEST ORDERABLES F inal Result * POCT glucose (01/10/2025 2:47 PM CDT) [facility] Glucose Blood, POC 98 mg/dL Blood 01/10/2025 2:47 PM CDT Arlen Welsh NP POINT OF CARE TEST ORDERABLES F inal Result * X-ray lumbar spine complete 4+ views (01/07/2025 10:26 AM CDT) Anatomical Region Laterality Modality Spine N/A Computed Radiogr aphy 01/07/2025 10:3 5 AM CDT Impressions 01/07/2025 10:35 AM CDT Multilevel lumbar spine degenerative disc disease worst and moderate L3-L4. Electronically signed by: Aubrey Madrigal M.D. Narrative 01/07/2025 10:35 AM CDT EXAMINATION: XR SPINE LUMBAR 4 OR MORE VIEWS HISTORY: Back pain FINDINGS: 4 views of the lumbar spine were performed without comparison. Right upper quadrant surgical clips are noted. There is mild upper lumbar levocurvature. There is lumbosacral transitional anatomy. S1 appears partially lumbarized. There is no compression deformity. There is multilevel degenerative disc disease worst and moderate L3-L4. Facet osteoarthritis is noted. Procedure Note Aubrey Madrigal MD PhD - 01/07/2025 EXAMINATION: XR SPINE LUMBAR 4 OR MORE VIEWS HISTORY: Back pain FINDINGS: 4 views of the lumbar spine were performed without comparison. Right upper quadrant surgical clips are noted. There is mild upper lumbar levocurvature. There is lumbosacral transitional anatomy. S1 appears partially lumbarized. There is no compression deformity. There is multilevel degenerative disc disease worst and moderate L3-L4. Facet osteoarthritis is noted. IMPRESSION: Multilevel lumbar spine degenerative disc disease worst and moderate L3-L4. Electronically signed by: Aubrey Madrigal M.D. Reggie Ta NP IMG XR PROCEDURES Final Result * eGFR (11/19/2024 9:15 AM BABBITTER) eGFR >90 >=60 mL/min/1. 73 m2 Comment: Interpretive Data Reference Interval Normal >/= 90 mL/min/1.73m2 Mildly decreased* 60 - 89 mL/min/1.73m2 Mildly to moderately decreased 45 - 59 mL/min/1.73m2 Moderately to severely decreased 30 - 44 mL/min/1.73m2 Severely decreased 15 - 29 mL/min/1.73m2 Kidney Failure < 15 mL/min/1.73m2 *Relative to young adult level Estimated glomerular filtration rate is determined by the 2020 CKD-EPI equation recommended by the National Kidney Foundation (A Unifying Approach to GFR Estimation: Recommendations of the NKF-ASK Task Force on Reassessing the Inclusion of Race in Diagnosing Kidney Disease, JASN 2020). The CKD-EPI equation should not be used for patients with unstable renal function and has not been validated in children and those over 70. Current interpretive data was last reviewed 2021. Blood 11/19/2024 9:15 AM BABBITTER 11/19/2024 9:47 AM BABBITTER Irena Mayer NP LAB BLOOD ORDERABLES Fi nal Result Performing Organization Address [facility] Co de Phone Number [facility] [address] [employer] [address] [place], [place] [phone] * (ABNORMAL) Erythrocyte sedimentation rate (11/19/2024 9:15 AM BABBITTER) Pathologist [facility] Erythrocyte sedimentation rate 18(H) 1 - 15 mm/hr Blood 11/19/2024 9:15 AM BABBITTER 11/19/2024 9:47 AM BABBITTER Irena Mayer NP LAB BLOOD ORDERABLES Fi nal Result Performing Organization Address [facility] Co de Phone Number [facility] [address] [facility] [employer] [place], [place] [phone] * (ABNORMAL) CBC without differential (11/19/2024 9:15 AM BABBITTER) Pathologist [facility] WBC 4.2 3.8 - 9.9 K/cumm Hgb 14.6 13.0 - 17.5 g/dL [facility] Hct 43.8 38.9 - 50.3 % [facility] Plt 171 150 - 400 K/cumm [facility] MPV 8.7(L) 9.1 - 12.3 fL [facility] RBC 5.32 4.30 - 5.80 M/cumm [facility] MCV 82.3 81.3 - 96.4 fL [facility] MCH 27.4 27.1 - 33.3 pg [facility] MCHC 33.3 32.3 - 35.7 g/dL [facility] RDW CV 13.0 11.1 - 14.9 % [facility] RDW SD 38.3 35.7 - 48.1 fL [facility] NRBC abs 0.00 0.00 - 0.01 K/cumm [facility] Blood 11/19/2024 9:15 AM BABBITTER 11/19/2024 9:47 AM BABBITTER Irena Mayer NP LAB BLOOD ORDERABLES Fi nal Result Performing Organization Address [facility] de Phone Number [facility] [address] [facility] [place] [address] * (ABNORMAL) CRP (acute phase) (11/19/2024 9:15 AM BABBITTER) Pathologist [facility] CRP 18.9(H) <=10.0 mg/L Blood 11/19/2024 9:15 AM BABBITTER 11/19/2024 9:47 AM BABBITTER Irena Mayer RUG CLEANING SUPERVISOR LAB BLOOD ORDERABLES Fi nal Result Performing Organization Address [facility] de Phone Number [facility] [address] [facility] [facility] [place] [address] * Uric acid (11/19/2024 9:15 AM BABBITTER) Pathologist [facility] Uric acid 4.7 3.0 - 8.0 mg/dL Blood 11/19/2024 9:15 AM BABBITTER 11/19/2024 9:47 AM BABBITTER Irena Mayer RUG CLEANING SUPERVISOR LAB BLOOD ORDERABLES Fi nal Result [facility] [address] [address] Department [place] [address] * Comprehensive metabolic panel (11/19/2024 9:15 AM BABBITTER) Sodium 140 135 - 145 mmol/L Potassium, pl 4.5 3.3 - 4.9 mmol/L [facility] Chloride 104 97 - 110 mmol/L [facility] CO2 25 22 - 32 mmol/L [facility] Anion gap 11 2 - 15 mmol/L [facility] BUN 22 6 - 25 mg/dL [facility] Creatinine 0.88 0.80 - 1.30 mg/dL [facility] Glucose 117 70 - 199 mg/dL [facility] Comment: Interpretive Data Fasting glucose >/= 126 mg/dl is diagnostic for diabetes. Fasting is defined as no caloric intake for at least 8 hours. Fasting glucose between 100 mg/dl to 125 mg/dl is diagnostic of prediabetes. In a patient with classic symptoms of hyperglycemia or hyperglycemic crisis, a random glucose >/= 200 mg/dl is diagnostic for diabetes. In the absence of unequivocal hyperglycemia, results should be confirmed by repeat testing. The classification and Diagnosis of Diabetes Diabetes Care 202; 46: S19-S40. Current interpretive data was last revised 2022. Calcium 9.4 8.5 - 10.3 mg/dL [facility] Bilirubin, total 0.3 0.1 - 1.2 mg/dL [facility] Protein, pl 6.9 6.5 - 8.5 g/dL [facility] Albumin 3.7 3.5 - 5.0 g/dL [facility] Alk phos 105 40 - 130 Units/L [facility] ALT 31 7 - 55 Units/L [facility] AST 23 10 - 50 Units/L [facility] Blood 11/19/2024 9:15 AM BABBITTER 11/19/2024 9:47 AM BABBITTER Irena Mayer NP LAB BLOOD ORDERABLES Fi nal Result [facility] [address] [facility]. 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 No radiographic evidence of sacroiliitis. Electronically signed by: Ori Sahni M.D. Narrative 11/19/2024 9:01 AM BABBITTER EXAMINATION: XR HIP LEFT 2 OR 3 VIEWS, XR SACROILIAC JOINTS 3 OR MORE VIEWS HISTORY: Left hip and sacroiliac joint pain in the setting of gout COMPARISON: None available FINDINGS: Sacroiliac joints: There is no acute fracture. Mild bilateral sacroiliac joint osteophytes. No erosions, ankylosis, or sclerosis. Left hip: No acute fracture or dislocation. There is mild left hip osteoarthritis. Procedure Note Ori Sahni MD - 11/19/2024 EXAMINATION: XR HIP LEFT 2 OR 3 VIEWS, XR SACROILIAC JOINTS 3 OR MORE VIEWS HISTORY: Left hip and sacroiliac joint pain in the setting of gout COMPARISON: None available FINDINGS: Sacroiliac joints: There is no acute fracture. Mild bilateral sacroiliac joint osteophytes. No erosions, ankylosis, or sclerosis. Left hip: No acute fracture or dislocation. There is mild left hip osteoarthritis. 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 No radiographic evidence of sacroiliitis. Electronically signed by: Ori Sahni M.D. 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 No radiographic evidence of sacroiliitis. Electronically signed by: Ori Sahni M.D. Narrative 11/19/2024 9:01 AM BABBITTER EXAMINATION: XR HIP LEFT 2 OR 3 VIEWS, XR SACROILIAC JOINTS 3 OR MORE VIEWS HISTORY: Left hip and sacroiliac joint pain in the setting of gout COMPARISON: None available FINDINGS: Sacroiliac joints: There is no acute fracture. Mild bilateral sacroiliac joint osteophytes. No erosions, ankylosis, or sclerosis. Left hip: No acute fracture or dislocation. There is mild left hip osteoarthritis. Procedure Note Ori Sahni MD - 11/19/2024 EXAMINATION: XR HIP LEFT 2 OR 3 VIEWS, XR SACROILIAC JOINTS 3 OR MORE VIEWS HISTORY: Left hip and sacroiliac joint pain in the setting of gout COMPARISON: None available FINDINGS: Sacroiliac joints: There is no acute fracture. Mild bilateral sacroiliac joint osteophytes. No erosions, ankylosis, or sclerosis. Left hip: No acute fracture or dislocation. There is mild left hip osteoarthritis. 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 No radiographic evidence of sacroiliitis. Electronically signed by: Ori Sahni M.D. Irena Mayer RUG CLEANING SUPERVISOR IMG XR PROCEDURES Final Result * Albumin Creatinine Ratio, Urine (10/10/2024 2:56 PM BABBITTER) Albumin Ur 18.2 mg/L Comment: Interpretive Data No reference range established. Current interpretive data was last revised 2019. Creatinine Ur 127.3 mg/dL [facility] Comment: Interpretive Data No reference range established. Current interpretive data was last revised 2019. Albumin Creatinine Ratio, Ur 14 1 - 29 mg/g [facility] Urine 10/10/2024 2:56 PM BABBITTER 10/10/2024 9:12 PM BABBITTER us Arlen Welsh NP LAB URINE ORDERABLES Final Resu lt [facility]ARRY [place] [address] [address] Department [place] [address] * Lipid panel (10/10/2024 2:56 PM BABBITTER) Cholesterol 171 30 - 199 mg/dL Comment: Interpretive Data Ages < or = 19 years Acceptable: <170 mg/dL Borderline high: 170-199 mg/dL High: >or= 200 mg/dL Ages > or = 20 years Desirable: <200 mg/dL Borderline high: 200-239 mg/dL High: >or= 240 mg/dL Literature References: 1. Expert Panel on Integrated Guidelines for Cardiovascular Health and Risk Reduction in Children and Adolescents. Pediatrics 2011;128:S213 2. NCEP Expert Panel. Circulation 2004;110:227 Current Interpretive Data was last revised on 2018. Triglycerides 102 <=149 mg/dL [facility] Comment: Interpretive Data Ages < or = 9 years Acceptable: <75 mg/dL Borderline high: 75-99 mg/dL High: >or= 100 mg/dL Ages 10 to 20 years Acceptable: <90 mg/dL Borderline high: 90-129 mg/dL High: >or= 130 mg/dL Ages > or = 20 years Desirable: <150 mg/dL Borderline high: 150-199 mg/dL High: 200-499 mg/dL Very high: >or= 499 mg/dL Literature References: 1. Expert Panel on Integrated Guidelines for Cardiovascular Health and Risk Reduction in Children and Adolescents. Pediatrics 2011;128:S213 2. NCEP Expert Panel. Circulation 2004;110:227 Current Interpretive Data was last revised on 2018. HDL 49 >=40 mg/dL [facility] Comment: Interpretive Data Ages < or = 19 years Acceptable: >45 mg/dL Borderline low: 40-45 mg/dL Low: <40 mg/dL Ages > or = 20 years Desirable: >or= 60 mg/dL Low: <40 mg/dL Literature References: 1. Expert Panel on Integrated Guidelines for Cardiovascular Health and Risk Reduction in Children and Adolescents. Pediatrics 2011;128:S213 2. NCEP Expert Panel. Circulation 2004;110:227 Current Interpretive Data was last revised on 2018. LDL, calculated 103 <=129 mg/dL [facility] Comment: Interpretive Data Ages < or = 19 years Acceptable: <110 mg/dL Borderline high: 110-129 mg/dL High: >or= 130 mg/dL Ages > or = 20 years Optimal: <100 mg/dL Near optimal: 100-129 mg/dL Borderline high: 130-159 mg/dL High: >160 mg/dL Calculated using the Sean LDL-C estimating equation. This equation was implemented on 2024. Prior to this date LDL-C was estimated using the Friedewald equation. Literature References: 1. Expert Panel on Integrated Guidelines for Cardiovascular Health and Risk Reduction in Children and Adolescents. Pediatrics 2011;128:S213 2. NCEP Expert Panel. Circulation 2004;110:227 3. Sean Lan et al. AMRIT Cardiol. 2019January 17;5(5):540-548. doi: 10.1001/jamacardio.2020.0013 Current Interpretive Data was last revised on 2024. Non-HDL Cholesterol 122 mg/dL [facility] Comment: Interpretive Data Ages < or = 19 years Acceptable: <120 mg/dL Borderline high: 120-144 mg/dL High: >145 mg/dL Ages > or = 20 years When triglycerides are >200 mg/dL, Non-HDL cholesterol is a secondary target of therapy with treatment goals that are 30 mg/dL greater than the LDL cholesterol target. Literature References: 1. Expert Panel on Integrated Guidelines for Cardiovascular Health and Risk Reduction in Children and Adolescents. Pediatrics 2011;128:S213 2. NCEP Expert Panel. Circulation 2004;110:227 Current Interpretive Data was last revised on 2018. Chol/HDL ratio 3 [facility] Blood 10/10/2024 2:56 PM BABBITTER 10/10/2024 9:12 PM BABBITTER us Arlen Welsh NP LAB BLOOD ORDERABLES Final Resu lt [facility]Y [place] [address] [address] Department [place] [address] * Diabetic Eye Exam (01/10/2023) us Historical Provider HEALTH MAINTENANCE Final Result from Last 3 Months or Most Recently Relevant to Health Maintenance Insurance [facility] Address: [place] [address] [facility] Address: [place] [address] Advance Directives For more information, please contact: [phone] * Full Code (Latest Code Status on File) Date Activated Date Inactivated Comments 02/15/2020 3:21 PM 02/18/2020 4:01 PM Care Teams Chief Librarian Circulation Department Relationship Specialty Start Date End Date Jairo Kirby DO [address] [place] [address] PCP - General Family Medicine 11/13/20
--- OUTSIDE RECORDS SUMMARY | 2025-01-16 12:56 | XMS_ITS | Clinical Summary ---
Author Organization [facility] Address [address] [place] [address] Phone Care Team Providers Care Signal Intelligence Analyst Name Role Phone Sanaz Zelaya MD Primary Care Provider [phone] Allergies Active Allergy Reactions Criticality Noted Date [...] of Treatment Not on file Care Teams Signal Intelligence Analyst Relationship Specialty Start Date End Date Sanaz Zelaya MD [address] [place] [address] PCP - General General Surgery 10/24/15
--- OUTSIDE RECORDS SUMMARY | 2025-01-16 12:56 | XMS_ITS | CONTINUITY OF CARE DOCUMENT ---
Author Name george vazquez Address Unknown Organization [facility] Address [id number] [place] [address] [address] [place] [address] Phone [phone] Care Team Providers Care Budget Technician Name Role Phone george vazquez Unavailable Unavailable INSURANCE PROVIDERS Payer name Policy type / Coverage type [place] red green party ID [id number] PPO Other [id number]
--- OUTSIDE RECORDS SUMMARY | 2025-01-16 12:56 | XMS_ITS | Encounter Summary ---
Author Organization [facility] Address [address] [place] [address] Care Team Providers Care Paunch Trimmer Name Role Phone PattJairo flanagan Eller Primary Care Provider Encounter Details Date Type Department Care Team (Late st Contact Info) Description 11/09/2023 Documentation [facility] Surgeon [address] [place] [address] Reji Shaver MD [address] [facility] [address] [phone] [place], [place] [id number] Social History Tobacco Use Types Packs/Day Years Used Date Smoking Tobacco: Never Passive Smoke Exposure: Past Smokeless Tobacco: Never Alcohol Use Standard Drinks/Week Comments Not Currently 0 (1 standard drink = 0.6 oz pur e alcohol) History AUDIT-C Answer Date Recorded Q1: How often do you have a drink containing alc ohol? Never 07/26/2022 Average Number of Drinks Not on file 022 Q3: How often do you have si x or more drinks on one occasion? 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
--- OUTSIDE RECORDS SUMMARY | 2025-01-16 12:56 | XMS_ITS | Encounter Summary ---
Author Organization [facility] Healthcare Address [address] [place] [address] Care Team Providers Care Tomahawk Weapon System Operator Name Role Phone PattJairo flanagan Primary Care Provider Encounter Details Date Type Department Care Team (Late st Contact Info) Description 01/14/2025 Results Follow-Up [facility] Diabetes Endocrine Care at [address] [phone] Arlen Welsh, AIRLINE MANAGERIAL SUPERVISOR [address] 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 Author CCM Chronic Pain Care Plan Chronic Care Management Leatha Mora, EDIS Note: Problem: Chronic Pain Goals: 1. Minimize further functional decline 2. Maximize quality of life 3. Control pain Strategies: - Activity/exercise program recommendation - Conservative stepwise pain medicine strategy with multi-disciplinary approach - Recommend healthy lifestyle strategies and compensatory methods as needed documented as of this encounter Visit Diagnoses Not on filedocumented in this encounter Care Teams Tomahawk Weapon System Operator Relationship Specialty Start Date End Date Jairo Kirby DO [address] [place] [address] PCP - General Family Medicine 11/13/20 documented as of this encounter
--- OUTSIDE RECORDS SUMMARY | 2025-01-16 12:56 | XMS_ITS | Referral Summary ---
Author Organization [facility] Address [address] [place] [phone] Care Team Providers Care Framing Mill Operator Name Role Phone Jairo Kirby DO Primary Care Provider Encounters Date Type Department Care Team Description 01/14/2025 Telephone [facility] [address] [place] [address] Tma Hsu MD [facility] Preprocedure 01/14/2025 Results Follow-Up [facility] Medical Group Diabetes Endocrine Care at [address] [phone] Arlen Welsh NP 01/10/2025 Results Follow-Up [facility] Center at the [facility] Advanced Medicine [address] [place] [address] [address] [place] [address] Reggie Ta NP 01/10/2025 3:40 PM CDT Lab [facility] Outpatient Lab - Outpatient Center at [address] [address] [facility] 01/10/2025 3:00 PM CDT Office Visit [facility] Medical Group Diabetes Endocrine Care at [address] [place] [address] Blaise, Arlen K., MORTGAGE PROCESSING CLERK Type 2 diabetes mellitus with hypoglycemia without [...] of 40.0 to 44.9 in adult (HCC) 01/07/2025 10:15 AM CDT - 01/07/2025 11:59 PM CDT Hospital Encounter [facility] [address] [place] [address] Lumbar radiculopathy Discharge Disposition: Discharge to home or self care 01/07/2025 8:17 AM CDT - 01/07/2025 11:59 PM CDT Hospital Encounter [facility] [address] [place] [address] [address] [place] [address] Reggie Ta NP Sacroiliitis (Primary Dx); Fibromyalgia; Lumbar radiculopathy; Meniere's disease of right ear Discharge Disposition: Discharge to home or self care 01/02/2025 8:40 AM CDT Office Visit [facility] ([facility]) - [facility] ENT [address] [facility] [address]th [place] [address] [place] [address] Alon Anguiano MD Cochlear implant in place (Primary Dx); Meniere's disease of both ears 12/11/2024 4:00 PM CDT Procedure visit [facility] Otolaryngology [address] [place] [address] 11th [place] [address] [place] [address] Filomena Paez Au.D. Sensorineural hearing loss, bilateral (Primary Dx) 11/19/2024 9:15 AM SALES ASSOCIATE KEY HOLDER Lab [facility] [address] [place] [address] Fibromyalgia; Polyarthritis 11/19/2024 8:42 AM SALES ASSOCIATE KEY HOLDER - 11/19/2024 11:59 PM SALES ASSOCIATE KEY HOLDER Hospital Encounter [facility] [address] [address] [address] Gout, unspecified cause, unspecified chronicity, unspecified site; Polyarthritis Discharge Disposition: Discharge to home or self care 11/19/2024 8:00 AM SALES ASSOCIATE KEY HOLDER Office Visit [facility] Rheumatology [address] [facility] Office Building [address] [place] [phone] Irena Mayer NP Fibromyalgia; Polyarthritis from Last 3 Months Allergies Active Allergy Reactions Criticality Noted Date [...] 1 tablet (1 g total) by mouth lock and dam operator before breakfast 11/07/19 21 Active meclizine (ANTIVERT) [...] 07/05/20 23 Active Baqsimi 3 mg/actuation spray,non-aeroso lIndications:andrews fournier with diabetes mellitus at risk of hypoglycemia [...] 01/11/20 25 Active blood-glucose,re ceiver,cont (Dexcom G7 Pipe Coverer Helper) misc 1 Device continuously To continuously monitor blood sugar e10.65 1 each 1 01/12/20 25 Active blood-glucose meter,continuous (Dexcom G7 Pipe Coverer Helper) misc 1 Device continuously To continuously monitor blood sugar e10.65 1 each 1 12/05/19 24 025 Discontin ued(Reord er) Active Problems Problem Noted Date Diagnosed Date Severe obesity 10/10/2024 Hyperthyroidism 10/10/2024 Assessment & Plan (10/10/2024 2:59 PM SALES ASSOCIATE KEY HOLDER): This is a chronic condition which is [...] am Repeat TSH in 2 months at [facility]. Prescription sent to hospital lab Hyperlipidemia associated with type 2 diabetes zehra jiménez 12/02/2023 Assessment & Plan (10/10/2024 3:01 PM SALES ASSOCIATE KEY HOLDER): This is a chronic condition which is [...] 09/01/2023 Assessment & Plan (10/10/2024 3:06 PM SALES ASSOCIATE KEY HOLDER): This is a chronic condition which is [...] therapy Assessment & Plan (09/01/2023 10:46 AM SALES ASSOCIATE KEY HOLDER): This is a chronic condition which is [...] . Assessment & Plan (10/10/2024 3:04 PM SALES ASSOCIATE KEY HOLDER): This is a chronic condition which is [...] . Assessment & Plan (09/01/2023 11:03 AM SALES ASSOCIATE KEY HOLDER): This is a chronic condition which is [...] hyperglycemia Assessment & Plan (10/10/2024 3:02 PM SALES ASSOCIATE KEY HOLDER): Continuous glucose monitor (cgm) applied from 09/27/2024 [...] of blood sugar. Reports ongoing issues with Cibando Cheryl 3 staying on and being accurate Has contacted the company directly and had several replacement Interpretation of data- average glucose 120, in target range 95%, 0 hypoglycemia, 5% hyperglycemia Assessment & Plan (09/01/2023 11:04 AM SALES ASSOCIATE KEY HOLDER): Continuous glucose monitor (cgm) applied from 08/19/2023 to 09/01/2023 This device was placed for monitor and treatment of blood sugar. Interpretation of data- average glucose 147, in target range 86%, 0 hypoglycemia, 14% hyperglycemia Cochlear implant in place 05/30/2020 Assessment & Plan (05/30/2020 12:07 PM CDT): Left otalgia after CI/labyrinthectomy. No obvious infection but very tender over mac artist/stimulator, no signs of meningitis or middle ear infection. Augmentin one week. RTC for re-evaluation if not improving. He is also meeting with Arlen Gore for CI check today. Sensorineural hearing loss (SNHL) of both ears 0 01/29/2020 Overview (01/29/2020): Added automatically from request for surgery [id number] Migraine with aura and witho ut status migrainosus, not intractable 09/06/2019 Hypertension associated with type 2 diabetes mali litus 09/06/2019 Assessment & Plan (10/10/2024 3:01 PM SALES ASSOCIATE KEY HOLDER): This is a chronic condition which is [...] B/P Assessment & Plan (09/01/2023 11:00 AM SALES ASSOCIATE KEY HOLDER): This is a chronic condition which is [...] 09/06/2019 Assessment & Plan (10/10/2024 3:01 PM SALES ASSOCIATE KEY HOLDER): This is a chronic condition which continues [...] exercise Assessment & Plan (09/01/2023 10:59 AM SALES ASSOCIATE KEY HOLDER): This is a chronic condition which continues [...] (01/29/2020): Added automatically from request for surgery [id number] Chronic seromucinous otitis media, left 07/09/2019 08/26/2022 Sensorineural hearing loss of both ears 08/18/2018 11/19/2024 Immunizations Immunization Administration Dates Next Due Hep B Vaccine 06/12/2013,05/15/2013 Influenza, Quadrivalent, Split, Intramuscular Influenza, Quadrivalent, Spl it, Preservative Free, Intramuscular 06/14/2020,07/12/2019 Influenza, Trivalent, IM (MDV) 06/27/2021,2012 Meningococcal MCV4P (Menactra) 11/27/2019 Pneumococcal Polysaccharide PPV23 11/27/2019 Social History Tobacco Use Types Packs/Day Years [...] on file Legal Sex Male 8:29 PM SALES ASSOCIATE KEY HOLDER Gender Identity Male 10/17/2020 1:52 PM SALES ASSOCIATE KEY HOLDER Sexual Orientation Straight 10/17/2020 1: 52 PM SALES ASSOCIATE KEY HOLDER Last Filed Vital Signs Vital Sign Reading [...] 01/10/2025 2:46 PM CDT Plan of Treatment Not on file Goals Goal Patient Goal Type Associated Problems Recent Progress Patient-Stated? Author CCM Chronic Pain Care Plan Chronic Care Management Leatha Mora RN Note: Problem: Chronic Pain Goals: 1. Minimize further functional decline 2. Maximize quality of life 3. Control pain Strategies: - Activity/exercise program recommendation - Conservative stepwise pain medicine strategy with multi-disciplinary approach - Recommend healthy lifestyle strategies and compensatory methods as needed Medical Devices Implanted Type Area Supervisor Stave Cutting Device Identifier Shelf Expiration Date Model / Serial / Lot Medtronic Inc Chelle 9.5mm 1.14mm 12mm Soft Ear T Flange Grommet Tube [id number] - [id number] Implanted:Qty : 1 on 07/26/2022 by Alon Anguiano MD at [facility] Tube Right: Cochlea Medtronic Inc [id number] 01/26/2030 [id number] / / [id number] Advanced [employer]ion[employer] Hires Ultra Hifocus 3d Mid Gaby Electrode Implant Cochlear Ci-1601-04 - [id number] - [id number] Implanted:Qty : 1 on 07/26/2022 by Alon Anguiano MD at [facility] Advanced [facility] Left: Cochlea [employer] [id number] 09/18/2024 CI-1601-04 / [id number] / Explanted Type Area Supervisor Stave Cutting Device Identifier Shelf Expiration Date Model / Serial / Lot Advanced [employer]ion[employer] Ci-1601-04 Hires Ultra Hifocus 3d Mid Gaby Electrode Implant Cochlear - [id number] - [id number] Implanted:Qty : 1 on 02/15/2020 by Alon Anguiano MD at [facility] Explanted:Qty : 1 on 07/26/2022 at [facility] Left: Cochlea [employer] [id number] 12/17/2022 CI-1601-0 4 / [id number] / Procedures Procedure Name Priority Date/Time Associated [...] Lumbar radiculopathy EGFR Routine 11/19/2024 9:15 AM SALES ASSOCIATE KEY HOLDER Fibromyalgia Polyarthritis URIC ACID Routine 11/19/2024 9:15 AM SALES ASSOCIATE KEY HOLDER Fibromyalgia Polyarthritis CRP (ACUTE PHASE) Routine 11/19/2024 9:1 5 AM SALES ASSOCIATE KEY HOLDER Fibromyalgia Polyarthritis ERYTHROCYTE SEDIMENTATION RATE Routine 11/19/2024 9:15 AM SALES ASSOCIATE KEY HOLDER Fibromyalgia Polyarthritis COMPREHENSIVE METABOLIC PANEL Routine 11/19/2024 9:15 AM SALES ASSOCIATE KEY HOLDER Fibromyalgia Polyarthritis CBC WITHOUT DIFFERENTIAL Routine 11/19/2024 9:15 AM SALES ASSOCIATE KEY HOLDER Fibromyalgia Polyarthritis XR SACROILIAC JOINTS 3 OR MORE VIEWS Schedule Routine, Read Routine (OP Routine) 11/19/2024 8:56 AM SALES ASSOCIATE KEY HOLDER Gout, unspecified cause, unspecified chronicity, unspecified site Polyarthritis XR HIP LEFT 2 OR 3 VIEWS Schedule Routine, Read Routine (OP Routine) 11/19/2024 8:56 AM SALES ASSOCIATE KEY HOLDER Gout, unspecified cause, unspecified chronicity, unspecified site Polyarthritis LIPID PANEL Routine 10/10/2024 2:56 PM SALES ASSOCIATE KEY HOLDER Type 2 diabetes mellitus with hypoglycemia without coma, with long-term current use of insulin (HCC) ALBUMIN CREATININE RATIO, URINE Routine 10/10/2024 2:56 PM SALES ASSOCIATE KEY HOLDER Hyperlipidemia associated with type 2 diabetes mellitus (HCC) DIABETIC EYE EXAM Routine 01/10/2023 from Last 3 Months or Most Recently Relevant to Health Maintenance Results * (ABNORMAL) Thyroid Function [place] (01/10/2025 3:50 PM CDT) TSH <0.01(L) 0.30 - 4.20 mcIUnit/mL Comment:Testing performed by : [facility], [address] [place] [address]., [address] Blood 01/10/2025 3:50 PM CDT 01/10/2025 7:08 PM CDT Arlen Welsh NP LAB BLOOD ORDERABLES Final Resu lt Performing Organization Address [facility] [address] [facility]/ZIP Co de Phone Number [facility] [address] [facility] [place] [address] * T3, free (01/10/2025 3:50 PM CDT) Free T3 3.7 2.0 - 4.4 pg/mL Comment:Testing performed by : [address] [address] Blood 01/10/2025 3:50 PM CDT 01/10/2025 7:44 PM CDT Narrative HARRY - 01/10/2025 11:30 PM CDT This test was reflexed from a Free T4 result. Arlen Welsh NP LAB BLOOD ORDERABLES Final Resu lt [facility] [address] [facility] [place] [address] * T4, free (01/10/2025 3:50 PM CDT) Pathologist [facility] Free T4 1.22 0.90 - 1.70 ng/dL Comment:Testing performed by : [facility], [address] [place] [address], [place]., [address] Blood 01/10/2025 3:50 PM CDT 01/10/2025 7:44 PM CDT Arlen Welsh MORTGAGE PROCESSING CLERK LAB BLOOD ORDERABLES Final Resu lt HARRY [address] [facility] Department of Laboratories [place] [id number] * POCT hemoglobin A1c (01/10/2025 2:49 PM CDT) [facility] Hemoglobin A1C, POC 5.2 4.0 - 5.6 % Blood 01/10/2025 2:49 PM CDT us Arlen Welsh MORTGAGE PROCESSING CLERK POINT OF CARE TEST ORDERABLES F inal Result * POCT glucose (01/10/2025 2:47 PM CDT) [facility] Glucose Blood, POC 98 mg/dL Blood 01/10/2025 2:47 PM CDT us Arlen Welsh NP POINT [...] signed by: Aubrey Madrigal M.D. Reggie Ta MORTGAGE PROCESSING CLERK IMG XR PROCEDURES Final Result * eGFR (11/19/2024 9:15 AM SALES ASSOCIATE KEY HOLDER) eGFR >90 >=60 mL/min/1. 73 m2 Comment: [...] of Race in Diagnosing Kidney Disease, JASN 202). The CKD-EPI equation should not be used for patients with unstable renal function and has not been validated in children and those over 70. Current interpretive data was last reviewed 2021. Blood 11/19/2024 9:15 AM SALES ASSOCIATE KEY HOLDER 11/19/2024 9:47 AM SALES ASSOCIATE KEY HOLDER Irena Mayer MORTGAGE PROCESSING CLERK LAB BLOOD ORDERABLES Fi nal Result Performing Organization Address [facility] [address]/[facility] Co de Phone Number HARRY AVERY [address] [facility] [place] [address] * (ABNORMAL) Erythrocyte sedimentation rate (11/19/2024 9:15 AM SALES ASSOCIATE KEY HOLDER) Pathologist [facility] Erythrocyte sedimentation rate 18(H) 1 - 15 mm/hr Blood 11/19/2024 9:15 AM SALES ASSOCIATE KEY HOLDER 11/19/2024 9:47 AM SALES ASSOCIATE KEY HOLDER Irena Mayer MORTGAGE PROCESSING CLERK LAB BLOOD ORDERABLES Fi nal Result Performing Organization Address [facility] de Phone Number HARRY AVERY [address] [facility] [place] [address] * (ABNORMAL) CBC without differential (11/19/2024 9:15 AM SALES ASSOCIATE KEY HOLDER) Pathologist [facility] WBC 4.2 3.8 - 9.9 K/cumm Hgb 14.6 13.0 - 17.5 g/dL [facility] Hct 43.8 38.9 - 50.3 % [facility] Plt 171 150 - 400 K/cumm [facility] MPV 8.7(L) 9.1 - 12.3 fL [facility] RBC 5.32 4.30 - 5.80 M/cumm [facility] MCV 82.3 81.3 - 96.4 fL [facility] MCH 27.4 27.1 - 33.3 pg [facility] MCHC 33.3 32.3 - 35.7 g/dL [facility] RDW CV 13.0 11.1 - 14.9 % [facility] RDW SD 38.3 35.7 - 48.1 fL [facility] NRBC abs 0.00 0.00 - 0.01 K/cumm [facility] Blood 11/19/2024 9:15 AM SALES ASSOCIATE KEY HOLDER 11/19/2024 9:47 AM SALES ASSOCIATE KEY HOLDER us Irena Mayer MORTGAGE PROCESSING CLERK LAB BLOOD ORDERABLES Fi nal Result Performing Organization Address [facility] [address]/[facility] de Phone Number HARRY BARAKATCH [address] [facility] [place] [address] * (ABNORMAL) CRP (acute phase) (11/19/2024 9:15 AM SALES ASSOCIATE KEY HOLDER) CRP 18.9(H) <=10.0 mg/L Blood 11/19/2024 9:15 AM SALES ASSOCIATE KEY HOLDER 11/19/2024 9:47 AM SALES ASSOCIATE KEY HOLDER us Irena Mayer MORTGAGE PROCESSING CLERK LAB BLOOD ORDERABLES Fi nal Result Performing Organization Address [facility] de Phone Number HARRY BARRETTWCH [address] [facility] [place] [address] * Uric acid (11/19/2024 9:15 AM SALES ASSOCIATE KEY HOLDER) Uric acid 4.7 3.0 - 8.0 mg/dL Blood 11/19/2024 9:15 AM SALES ASSOCIATE KEY HOLDER 11/19/2024 9:47 AM SALES ASSOCIATE KEY HOLDER us Irena Mayer MORTGAGE PROCESSING CLERK LAB BLOOD ORDERABLES Fi nal Result Performing Organization Address [facility] [address] [facility] de Phone Number HARRY BARRETTCH [address] [facility] [place] [address] * Comprehensive metabolic panel (11/19/2024 9:15 AM SALES ASSOCIATE KEY HOLDER) Sodium 140 135 - 145 mmol/L Potassium, pl 4.5 3.3 - 4.9 mmol/L [facility] Chloride 104 97 - 110 mmol/L [facility] W CO2 25 22 - 32 mmol/L [facility] Anion gap 11 2 - 15 mmol/L [facility] BUN 22 6 - 25 mg/dL [facility] Creatinine 0.88 0.80 - 1.30 mg/dL [facility] Glucose 117 70 - 199 mg/dL [facility] Comment: Interpretive Data Fasting glucose >/= 126 [...] classification and Diagnosis of Diabetes Diabetes Care 2021; 46: S19-S40. Current interpretive data was last revised 2022. Calcium 9.4 8.5 - 10.3 mg/dL [facility] Bilirubin, total 0.3 0.1 - 1.2 mg/dL [facility] Protein, pl 6.9 6.5 - 8.5 g/dL [facility] Albumin 3.7 3.5 - 5.0 g/dL [facility] Alk phos 105 40 - 130 Units/L [facility] ALT 31 7 - 55 Units/L [facility] AST 23 10 - 50 Units/L [facility] Blood 11/19/2024 9:15 AM SALES ASSOCIATE KEY HOLDER 11/19/2024 9:47 AM SALES ASSOCIATE KEY HOLDER Irena Mayer NP LAB BLOOD ORDERABLES nal Result Performing Organization Address City/State/ZIP Co oh Phone Number [facility] [address] [facility] Department [place] [address] * XR Hip Left 2 or 3 Views (11/19/2024 8:56 AM SALES ASSOCIATE KEY HOLDER) Anatomical Region Laterality Modality Lower Extremities, Hip, Pelvis Left C omputed Radiography 11/19/2024 9:01 AM SALES ASSOCIATE KEY HOLDER Impressions 11/19/2024 9:01 AM SALES ASSOCIATE KEY HOLDER 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 No radiographic evidence of sacroiliitis. Electronically signed by: Ori Sahni M.D. Narrative 11/19/2024 9:01 AM SALES ASSOCIATE KEY HOLDER EXAMINATION: XR HIP LEFT 2 OR 3 [...] signed by: Ori Sahni M.D. 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 No radiographic evidence of sacroiliitis. Electronically signed by: Ori Sahni M.D. Narrative 11/19/2024 9:01 AM SALES ASSOCIATE KEY HOLDER EXAMINATION: XR HIP LEFT 2 OR 3 [...] signed by: Ori Sahni M.D. Irena Mayer MORTGAGE PROCESSING CLERK IMG XR PROCEDURES Final Result * Albumin Creatinine Ratio, Urine (10/10/2024 2:56 PM SALES ASSOCIATE KEY HOLDER) Albumin Ur 18.2 mg/L Comment: Interpretive Data No reference range established. Current interpretive data was last revised 2019. Creatinine Ur 127.3 mg/dL [facility] Comment: Interpretive Data No reference range established. Current interpretive data was last revised 2019. Albumin Creatinine Ratio, Ur 14 1 - 29 mg/g [facility] Urine 10/10/2024 2:56 PM SALES ASSOCIATE KEY HOLDER 10/10/2024 9:12 PM SALES ASSOCIATE KEY HOLDER Arlen Welsh NP LAB URINE ORDERABLES Final Resu lt [facility] [address] [address] Department [place] [address] * Lipid panel (10/10/2024 2:56 PM SALES ASSOCIATE KEY HOLDER) Cholesterol 171 30 - 199 mg/dL Comment: [...] on 2018. Triglycerides 102 <=149 mg/dL HARRY Comment: Interpretive Data Ages < or = [...] on 2018. HDL 49 >=40 mg/dL HARRY Comment: Interpretive Data Ages < or = [...] 2018. LDL, calculated 103 <=129 mg/dL HARRY Comment: Interpretive Data Ages < or = 19 years Acceptable: <110 mg/dL Borderline high: 110-129 mg/dL High: >or= 130 mg/dL Ages > or = 20 years Optimal: <100 mg/dL Near optimal: 100-129 mg/dL Borderline high: 130-159 mg/dL High: >160 mg/dL Calculated using the Estrada LDL-C estimating equation. This equation was implemented on 2024. Prior to this date LDL-C was estimated using the Friedewald equation. Literature References: 1. Expert Panel on Integrated Guidelines for Cardiovascular Health and Risk Reduction in Children and Adolescents. Pediatrics 2011;128:S213 2. NCEP Expert Panel. Circulation 2004;110:227 3. Sean M et al. AMRIT Cardiol. 2020 January 17;5(5):540-548. doi: 10.1001/jamacardio.2020.0013 Current Interpretive Data was [...] 3 HARRY HARTMAN Blood 10/10/2024 2:56 PM SALES ASSOCIATE KEY HOLDER 10/10/2024 9:12 PM SALES ASSOCIATE KEY HOLDER Arlen Welsh NP LAB BLOOD ORDERABLES Final Resu lt HARRY HARTMAN [address] [address] Department [place] [address] * Diabetic Eye Exam (01/10/2023) Historical Provider HEALTH MAINTENANCE Final Result from Last 3 Months or Most Recently Relevant to Health Maintenance Insurance [facility] MEDICARE ADVANTAGE [facility] Address: [address] [address] [place] [address] [facility] Address: [address] [place] [phone] [employer] MEDICARE ADVANTAGE [facility] Address: [id number] [place] [phone] Advance Directives For more information, please contact: [phone] * Full Code (Latest Code Status on File) Date Activated Date Inactivated Comments 02/15/2020 3:21 PM 02/18/2020 4:01 PM Care Teams Framing Mill Operator Relationship Specialty Start Date End Date Jairo Kirby DO [address] [place] [address] PCP - General Family Medicine 11/13/20
--- OUTSIDE RECORDS SUMMARY | 2025-01-16 12:56 | XMS_ITS | Clinical Summary ---
Author Organization [facility] Address Formerly [facility] [place] [address] Care Team Providers Care Customer Operations Intern Name Role Phone Hazel Mancera OIL DEVELOPER Primary Care Provider [phone] Social History Tobacco Use Types Packs/Day Years [...] 5 Years) and At-Risk Patients (6 to 49 Years) Aged Out 11/27/2019 No longer eligible [...] patient's age to complete this topic Insurance [facility] Care Teams Customer Operations Intern Relationship Specialty Start Date End Date Hazel Mancera NP [address] [place] [phone] PCP - General NURSE PRACTITIONER 11/22/22
--- OUTSIDE RECORDS SUMMARY | 2025-01-16 12:56 | XMS_ITS | Encounter Summary ---
Author Organization [facility] Healthcare Address [address] [place] [address] Care Team Providers Care Knot Tying Operator Name Role Phone PattJairo flanagan Eller Primary Care Provider Encounter Details Date Type Department Care Team (Late st Contact Info) Description 01/10/2025 Results Follow-Up [facility] [address] [facility] [address] [place] [address] Reggie Ta NP [address] [facility] [address] [place] [address] Social History Tobacco Use Types Packs/Day Years [...] on file Legal Sex Male 8:29 PM TIGHT BARREL INSPECTOR Gender Identity Male 10/17/2020 1:52 PM TIGHT BARREL INSPECTOR Sexual Orientation Straight 10/17/2020 1: 52 PM TIGHT BARREL INSPECTOR documented as of this encounter Plan of [...] on filedocumented in this encounter Care Teams Knot Tying Operator Relationship Specialty Start Date End Date Jairo Kirby DO [address] [place] [address] PCP - General Family Medicine 11/13/20 documented as of this encounter
== END 2025-01-16 11:25 | disposition home or self-care (01) ==
LOC: CHSIMG 11:25
PROVIDERS: PCP Family Medicine; Visit Provider Nurse Practitioner Family
DX: M54.2 Cervicalgia (principal)
CPT/HCPCS: 72050

== ENCOUNTER 2025-04-15 14:12 | Outpatient (CLI) | payer MEDICARE, SELFPAY ==
--- OUTSIDE RECORDS SUMMARY | 2025-04-15 14:17 | XMS_ITS | Encounter Summary ---
Author Organization [facility] Healthcare Address [address] [place] [address] Care Team Providers Care Dramatic Coach Name Role Phone Jairo Kirby DO Primary Care Provider Encounter Details Date Type Department Care Team (Late st Contact Info) Description 11/09/2023 Documentation [facility] Surgeon [address] [place], [place] [id number] Reji Shaver MD [address] [facility] [address] [id number] [place] [address] Social History Tobacco Use Types Packs/Day Years [...] on file Legal Sex Male 8:29 PM STRUCTURED CABLING TECHNICIAN Gender Identity Male 10/17/2020 1:52 PM STRUCTURED CABLING TECHNICIAN Sexual Orientation Straight 10/17/2020 1: 52 PM STRUCTURED CABLING TECHNICIAN documented as of this encounter Plan of Treatment Not on file documented as of this encounter Visit Diagnoses Not on filedocumented in this encounter Care Teams Dramatic Coach Relationship Specialty Start Date End Date Jairo Kirby DO [address] [place] [address] PCP - General Family Medicine 11/13/20 documented as of this encounter
--- OUTSIDE RECORDS SUMMARY | 2025-04-15 14:17 | XMS_ITS | Clinical Summary ---
Author Organization [facility] Address [facility] [place] [address] Care Team Providers Care Lead Burner Apprentice Name Role Phone Hazel Mancera SHUTTLE VENEERING SUPERVISOR Primary Care Provider [phone] Social History Tobacco Use Types Packs/Day Years [...] and Td Vaccines (1 - Tdap) 1998 HPV Vaccines (1 - 3-dose SCDM series) 2006 Hepatitis B Vaccines (3 of 3 - [...] patient's age to complete this topic Insurance [facility] Care Teams Lead Burner Apprentice Relationship Specialty Start Date End Date Hazel Mancera NP [address] [place] [phone] PCP - General NURSE PRACTITIONER 11/22/22
--- OUTSIDE RECORDS SUMMARY | 2025-04-15 14:17 | XMS_ITS | Referral Summary ---
Author Organization [facility] Address [address] [place] [phone] Care Team Providers Care Commercial Real Estate Broker Name Role Phone Jairo Kirby DO Primary Care Provider Encounters Date Type Department Care Team Description 04/11/2025 4:00 PM CDT Office Visit [facility] Diabetes Endocrine Care at [address] [place] [phone] Arlen Welsh, RUBEN Type 2 diabetes mellitus with hypoglycemia without coma, with long-term current use of insulin (HCC) (Primary Dx); Acquired hypothyroidism; Hyperthyroidism; Hypertension associated with type 2 diabetes mellitus (HCC); Hyperlipidemia associated with type 2 diabetes mellitus (HCC); Dexcom 7 continuous glucose monitoring device; Omnipod dash Insulin pump in place 04/10/2025 12:00 PM CDT Clinical Support [facility] Neuro Psychology [address] [place] [address] Emelina Avila, PhD Memory problem 04/01/2025 2:30 PM CDT Procedure visit [facility] Otolaryngology [address] 11th [place] [address] [place] [address] Colt Crowe Au.D. Sensorineural hearing loss, bilateral (Primary Dx); Encounter for adjustment and management of cochlear device 04/01/2025 8:05 AM CDT - 04/01/2025 11:59 PM CDT Hospital Encounter [facility] [address] [facility] [address] [place] [address] Reggie Ta NP Lumbar radiculopathy (Primary Dx); Sacroiliitis Discharge Disposition: Discharge to home or self care 03/15/2025 2:03 PM CDT - 03/15/2025 11:59 PM CDT Hospital Encounter [facility] [address] [place] [address] Lumbar radiculopathy Discharge Disposition: Discharge to home or self care 03/14/2025 4:00 PM CDT Procedure visit [facility] Otolaryngology [address] [place] [address] 11th [place] [address] [place] [phone] Filomena Paez Au.D. Sensorineural hearing loss, bilateral (Primary Dx); Encounter for adjustment and management of cochlear device 03/12/2025 9:00 AM CDT Office Visit [facility] General Neurology [address] 6th [address] [place] [phone] Edie Jung PA Vestibular migraine (Primary Dx); Memory problem 02/25/2025 2:00 PM CDT Office Visit [facility] Pain Management [address] [facility] [address] [place] [phone] Maricruz Greer, PhD Other chronic pain (Primary Dx); Other specified depressive disorder; PTSD (post-traumatic stress disorder); Fibromyalgia; Meniere's disease of right ear 01/22/2025 Telephone [facility] [facility] [address] [place] [address] Reggie Ta NP 01/14/2025 Telephone [facility] [facility] [address] [place] [address] Tam Hsu MD [facility] Preprocedure 01/14/2025 Results Follow-Up [facility] Diabetes Endocrine Care at [address] [place] [phone] Arlen Welsh, RUBEN Thyroid Function [place], T4, free, T3, free from Last 3 Months Allergies Active Allergy [...] total) by mouth nightly 11/07/19 21 Active meclizine (ANTIVERT) 25 mg tablet Take 1 tablet (25 mg total) by mouth 3 (three) times a day as needed (Vertigo attacks) 45 tablet 11/12/19 23 Active prochlorperazine (COMPAZINE) 10 mg tablet [...] E11.65 2 each 11 11/02/19 24 Active TRUEplus Pen Needle 32 gauge [...] 30 tablet 11 10/02/19 25 026 Active Dexcom G7 Sensor device 1 Device continuously . Change every 10 days. E11.65 10 each 3 11/12/19 25 Active tirzepatide (Mounjaro) 7.5 mg/0.5 mL pen injector injectionIndicat ions:type 2 diabetes mellitus Inject 0.5 mL (7.5 mg total) under the skin every 7 days And we will titrate as needed. E11.9 2 mL 11 01/11/20 25 Active blood-glucose,re ceiver,cont (Dexcom G7 Collator Hand) misc 1 Device continuously To continuously monitor blood sugar e10.65 1 each 1 01/12/20 25 Active rosuvastatin (CRESTOR) 20 mg tablet Take 1 tablet (20 mg total) by mouth nightly 90 tablet 3 02/29/20 25 Active SUMAtriptan (IMITREX) 100 mg tabletIndication s:Migraine Take 1 tablet (100 mg total) by mouth once as needed for migraine (headache) for up to 1 dose May repeat one time after 2 hours if needed. 9 tablet 5 03/12/20 25 Active blood-glucose meter kit Use to test glucose 4 times daily 1 kit 03/29/20 25 Active blood glucose diagnostic (glucose blood) strip Use to test glucose 4 times daily 400 each 3 03/29/20 25 Active lancets misc Use to test glucose 4 times daily 400 each 3 03/29/20 25 Active neomycin-polymyx in-HC (CORTISPORIN) 3.5-10,000-1 mg/mL-unit/mL-% otic suspension INSTILL 4 DROP INTO EACH EAR EVERY 8 HOURS 02/23/20 25 Active [facility]2 [facility] 03/29/20 25 Active OneTouch Delica Plus Lancet 33 [facility] 03/29/20 25 Active baclofen (LIORESAL) 5 mg tabletIndication s:Lumbar radiculopathy Take 1 tablet (5 mg total) by mouth 2 (two) times a day 60 tablet 1 04/01/20 25 025 Active amLODIPine (NORVASC) 10 mg tablet Take 1 tablet (10 mg total) by mouth daily 04/02/20 25 Active triamcinolone (KENALOG) 0.1 % ointment APPLY TO AFFECTED AREA TWICE A DAY NEEDED FOR ITCHING DO NOT USE LONGER THAN 2 WEEKS 04/02/20 25 Active dapagliflozin propanediol (FARXIGA) 10 mg tablet Take 1 tablet (10 mg total) by mouth daily E11.65 90 tablet 3 12/09/19 24 025 Discontin ued(Thera py completed ) tirzepatide (Mounjaro) 2.5 mg/0.5 mL pen injector injectionIndicat ions:type 2 diabetes mellitus Inject 0.5 mL (2.5 mg total) under the skin every 7 days For 4 doses. E11.9 2 mL 01/11/20 25 025 Discontin ued(Thera py completed ) tirzepatide (Mounjaro) 5 mg/0.5 mL pen injector injection Inject 0.5 mL (5 mg total) under the skin every 7 days For 4 doses and then increase mounjaro to 7.5mg weekly. E11.9 2 mL 01/11/20 025 Discontin ued(Thera py completed ) methocarbamoL (ROBAXIN) 500 mg tabletIndication s:Muscle Spasm Take 1 tablet (500 mg total) by mouth 3 (three) times a day 90 tablet 2 01/30/20 025 Discontin ued(Alter ayah therapy) Active Problems Problem Noted Date Diagnosed Date Severe obesity 10/10/2024 Hyperthyroidism 10/10/2024 Assessment & Plan (10/10/2024 2:59 PM DIGITAL SERVICE ENGINEER): This is a chronic condition which is [...] am Repeat TSH in 2 months at [facility]. Prescription sent to hospital lab Hyperlipidemia associated with type 2 diabetes zehra jiménez 12/02/2023 Assessment & Plan (10/10/2024 3:01 PM DIGITAL SERVICE ENGINEER): This is a chronic condition which is [...] 09/01/2023 Assessment & Plan (10/10/2024 3:06 PM DIGITAL SERVICE ENGINEER): This is a chronic condition which is [...] therapy Assessment & Plan (09/01/2023 10:46 AM DIGITAL SERVICE ENGINEER): This is a chronic condition which is [...] pump in place 09/01/2023 Assessment & Plan (04/11/2025 4:21 PM CDT): This is a chronic condition which is 03/29/2025 to 04/11/2025 Type of insulin pump- omnipod dash Pump settings : Basal -1.25 IC -7 ISF -40 Active insulin time 3hrs. TARGET GLUCOSE -100-110 Self adjust his own insulin pump settings Avg Total daily insulin-51 units Avg daily basal -30 units (59%) Avg daily bolus -21 units (41%) Interpretation- average glucose 129. 100% time in range. Encouraged to avoid hypoglycemia no blood sugars less than 100 . Assessment & Plan (01/10/2025 3:40 PM CDT): [...] . Assessment & Plan (10/10/2024 3:04 PM DIGITAL SERVICE ENGINEER): This is a chronic condition which is [...] . Assessment & Plan (09/01/2023 11:03 AM DIGITAL SERVICE ENGINEER): This is a chronic condition which is [...] continuous glucose monitoring device Assessment & Plan (04/11/2025 4:19 PM CDT): Continuous glucose monitor (cgm) applied from 03/29/2025 to 04/11/2025 This device was placed for monitor and treatment of blood sugar. Interpretation of data- average glucose 104. in target range 98%. 0% hypoglycemia. 2% hyperglycemia Assessment & Plan (01/10/2025 3:38 PM CDT): Continuous glucose monitor (cgm) applied from 12/28/2024 to 01/10/2025 This device was placed for monitor and treatment of blood sugar. Interpretation of data- average glucose 115. in target range 93%. 3% hypoglycemia. 4% hyperglycemia Assessment & Plan (10/10/2024 3:02 PM DIGITAL SERVICE ENGINEER): Continuous glucose monitor (cgm) applied from 09/27/2024 [...] hyperglycemia Assessment & Plan (09/01/2023 11:04 AM DIGITAL SERVICE ENGINEER): Continuous glucose monitor (cgm) applied from 08/19/2023 to 09/01/2023 This device was placed for monitor and treatment of blood sugar. Interpretation of data- average glucose 147, in target range 86%, 0 hypoglycemia, 14% hyperglycemia Cochlear implant in place 05/30/2020 Assessment & Plan (05/30/2020 12:07 PM CDT): Left otalgia after CI/labyrinthectomy. No obvious infection but very tender over bank appraiser/stimulator, no signs of meningitis or middle ear infection. Augmentin one week. RTC for re-evaluation if not improving. He is also meeting with Arlen Gore for CI check today. Sensorineural hearing loss (SNHL) of both ears 0 01/29/2020 Overview (01/29/2020): Added automatically from request for surgery [id number] Migraine with aura and witho ut status migrainosus, not intractable 09/06/2019 Hypertension associated with type 2 diabetes mali litus 09/06/2019 Assessment & Plan (10/10/2024 3:01 PM DIGITAL SERVICE ENGINEER): This is a chronic condition which is [...] B/P Assessment & Plan (09/01/2023 11:00 AM DIGITAL SERVICE ENGINEER): This is a chronic condition which is [...] 09/06/2019 Assessment & Plan (10/10/2024 3:01 PM DIGITAL SERVICE ENGINEER): This is a chronic condition which continues [...] exercise Assessment & Plan (09/01/2023 10:59 AM DIGITAL SERVICE ENGINEER): This is a chronic condition which continues [...] (01/29/2020): Added automatically from request for surgery [id number] Chronic seromucinous otitis media, left 07/09/2019 08/26/2022 [...] you have a drink containing alcohol? Never 04/01/2025 Q2: How many drinks containi ng alcohol do you have on a typical day when you are drinking? Patient does not drink Q3: How often do you have si x or more drinks on one occasion? Never 04/01/2025 Sex and Gender Information Value Date Recorded Sex Assigned at Not on file Legal Sex Male 8:29 PM DIGITAL SERVICE ENGINEER Gender Identity Male 10/17/2020 1:52 PM DIGITAL SERVICE ENGINEER Sexual Orientation Straight 10/17/2020 1: 52 PM DIGITAL SERVICE ENGINEER Last Filed Vital Signs Vital Sign Reading Time Taken Comments Blood Pressure 124/86 04/11/2025 3:42 PM CDT Pulse 66 04/01/2025 8:27 AM CDT Temperature 36.5 C (97.7 F) 04/01/2025 8:27 AM CDT Respiratory Rate 16 04/01/2025 8:27 AM CDT Oxygen Saturation 99% 04/01/2025 8:27 AM CDT Inhaled Oxygen Concentration - - Weight 122.9 kg (271 lb) 04/11/2025 3:42 PM CDT Height 172.7 cm (5' 8) 04/11/2025 3:42 PM CDT Body Mass Index 41.21 04/11/2025 3:42 PM CDT Plan of Treatment Not on file Goals Goal Patient Goal Type Associated Problems Recent Progress Patient-Stated? Author CCM Chronic Pain Care Plan Chronic Care Management Worsening( 8:31 AM CDT) Leatha Mora, EDIS Note: Problem: Chronic Pain Goals: 1. Minimize further functional decline 2. Maximize quality of life 3. Control pain Strategies: - Activity/exercise program recommendation - Conservative stepwise pain medicine strategy with multi-disciplinary approach - Recommend healthy lifestyle strategies and compensatory methods as needed Medical Devices Implanted Type Area Surgery Scheduling Coordinator Device Identifier Shelf Expiration Date Model / Serial / Lot Med[employer]onic Inc Chelle 9.5mm 1.14mm 12mm Soft Ear T Flange Grommet Tube [id number] - [id number] Implanted:Qty : 1 on 07/26/2022 by Alon Anguiano MD at [facility] Tube Right: Cochlea Med[employer] Inc [id number] 01/26/2030 [id number] / / [id number] [employer] Hires Ultra Hifocus 3d Mid Gaby Electrode Implant Cochlear Ci-1601-04 - [id number] - [id number] Implanted:Qty : 1 on 07/26/2022 by Alon Anguiano MD at [facility] Left: Cochlea [employer] [id number] 09/18/2024 CI-1601-04 / [id number] / Explanted Type Area Surgery Scheduling Coordinator Device Identifier Shelf Expiration Date Model / Serial / Lot [employer] Ci-1601-04 Hires Ultra Hifocus 3d Mid Gaby Electrode Implant Cochlear - [id number] - [id number] Implanted:Qty : 1 on 02/15/2020 by Alon Anguiano MD at [facility] Explanted:Qty : 1 on 07/26/2022 at [facility] Left: Cochlea [employer] [id number] 12/17/2022 CI-1601-0 / [id number] / Procedures Procedure Name Priority Date/Time Associated Diagnosis Comments POCT HEMOGLOBIN A1C Routine 04/11/2025 3:46 PM CDT Type 2 diabetes mellitus with hypoglycemia without coma, with long-term current use of insulin (HCC) POCT GLUCOSE Routine 04/11/2025 3:44 PM CDT Type 2 diabetes mellitus with hypoglycemia without coma, with long-term current use of insulin (HCC) MRI LUMBAR SPINE WO CONTRAST Schedule Routine, Read Routine (OP Routine) 03/15/2025 3:10 PM CDT Lumbar radiculopathy EGFR Routine 11/19/2024 9:15 AM DIGITAL SERVICE ENGINEER Fibromyalgia Polyarthritis LIPID PANEL Routine 10/10/2024 2:56 PM DIGITAL SERVICE ENGINEER Type 2 diabetes mellitus with hypoglycemia without coma, with long-term current use of insulin (HCC) ALBUMIN CREATININE RATIO, URINE Routine 10/10/2024 2:56 PM DIGITAL SERVICE ENGINEER Hyperlipidemia associated with type 2 diabetes mellitus (HCC) DIABETIC EYE EXAM Routine 01/10/2023 from Last 3 Months or Most Recently Relevant to Health Maintenance Results * POCT hemoglobin A1c (04/11/2025 3:46 PM CDT) Hemoglobin A1C, POC 4.7 4.0 - 5.6 % Blood 04/11/2025 3:46 PM CDT us Arlen Welsh PUMP STATION OPERATOR POINT OF CARE TEST ORDERABLES F inal Result * POCT glucose (04/11/2025 3:44 PM CDT) Glucose Blood, POC 107 Normal Fasting 70 - 100, Random <200 mg/dL Blood 04/11/2025 3:44 PM CDT us Arlen Welsh PUMP STATION OPERATOR POINT OF CARE TEST ORDERABLES F inal Result * MRI Lumbar Spine WO Contrast (03/15/2025 3:10 PM CDT) Anatomical Region Laterality Modality Spine N/A Magnetic Resonan ce 03/15/2025 4:21 PM CDT Impressions 03/15/2025 5:27 PM CDT 1. Mild degenerative changes of the lumbar spine without high grade spinal canal stenosis and with up to moderate L4-L5 neural foraminal stenosis. 2. Transitional lumbosacral anatomy with partially sacralized L5 vertebral body and a rudimentary L5-S1 disc. Dictated by: Rojelio Gonzalez M.D. The radiology attending physician has personally reviewed this study, and had reviewed and/or edited this written report and agrees with it. Electronically signed by: Daniel Rader MD Narrative 03/15/2025 5:27 PM CDT EXAMINATION: Magnetic resonance imaging (MRI) of the lumbar spine without contrast HISTORY: Lumbar radiculopathy TECHNIQUE: Multiplanar multi-weighted MRI of the lumbar spine was performed without intravenous contrast using the standard protocol. COMPARISON: None FINDINGS: There are diminutive ribs at T12 with transitional lumbosacral anatomy with partially sacralized L5 vertebral body and a rudimentary L5-S1 disc. Alignment within normal limits. Vertebral bodies demonstrate normal signal intensity on all sequences. There are no compression fractures. The conus medullaris terminates at the level of L1-L2. The distal spinal cord signal intensity is normal. Mild disc desiccation and height loss primarily at L5-S1. There are no annular fissures identified. Limited views of the abdomen and pelvis show no soft tissue abnormality. The aorta is normal. L1-L2: Mild diffuse bulge. There is no facet arthropathy. There is no neuroforaminal stenosis. There is no spinal canal stenosis. L2-L3: Mild diffuse bulge. There is no facet arthropathy. There is mild neuroforaminal stenosis. There is no spinal canal stenosis. L3-L4: Mild diffuse bulge. There is no facet arthropathy. There is mild neuroforaminal stenosis. There is no spinal canal stenosis. L4-L5: Mild diffuse bulge. There is mild facet arthropathy. There is moderate neuroforaminal stenosis. There is no spinal canal stenosis. L5-S1: Rudimentary disc without degenerative change. Hypoplastic facets. There is no neuroforaminal stenosis. There is no spinal canal stenosis. Procedure Note Daniel Rader MD - 03/15/2025 EXAMINATION: Magnetic resonance imaging (MRI) of the lumbar spine without contrast HISTORY: Lumbar radiculopathy TECHNIQUE: Multiplanar multi-weighted MRI of the lumbar spine was performed without intravenous contrast using the standard protocol. COMPARISON: None FINDINGS: There are diminutive ribs at T12 with transitional lumbosacral anatomy with partially sacralized L5 vertebral body and a rudimentary L5-S1 disc. Alignment within normal limits. Vertebral bodies demonstrate normal signal intensity on all sequences. There are no compression fractures. The conus medullaris terminates at the level of L1-L2. The distal spinal cord signal intensity is normal. Mild disc desiccation and height loss primarily at L5-S1. There are no annular fissures identified. Limited views of the abdomen and pelvis show no soft tissue abnormality. The aorta is normal. L1-L2: Mild diffuse bulge. There is no facet arthropathy. There is no neuroforaminal stenosis. There is no spinal canal stenosis. L2-L3: Mild diffuse bulge. There is no facet arthropathy. There is mild neuroforaminal stenosis. There is no spinal canal stenosis. L3-L4: Mild diffuse bulge. There is no facet arthropathy. There is mild neuroforaminal stenosis. There is no spinal canal stenosis. L4-L5: Mild diffuse bulge. There is mild facet arthropathy. There is moderate neuroforaminal stenosis. There is no spinal canal stenosis. L5-S1: Rudimentary disc without degenerative change. Hypoplastic facets. There is no neuroforaminal stenosis. There is no spinal canal stenosis. IMPRESSION: 1. Mild degenerative changes of the lumbar spine without high grade spinal canal stenosis and with up to moderate L4-L5 neural foraminal stenosis. 2. Transitional lumbosacral anatomy with partially sacralized L5 vertebral body and a rudimentary L5-S1 disc. Dictated by: Rojelio Gonzalez M.D. The radiology attending physician has personally reviewed this study, and had reviewed and/or edited this written report and agrees with it. Electronically signed by: Daniel Radre MD Reggie Ta PUMP STATION OPERATOR IM MRI PROCEDURES Milagros l Result * eGFR (11/19/2024 9:15 AM DIGITAL SERVICE ENGINEER) eGFR >90 >=60 mL/min/1. 73 m2 Comment: [...] last reviewed 2021. Blood 11/19/2024 9:15 AM DIGITAL SERVICE ENGINEER 11/19/2024 9:47 AM DIGITAL SERVICE ENGINEER Ierna Mayer PUMP STATION OPERATOR LAB BLOOD ORDERABLES Fi nal Result Performing Organization Address City/[facility] [address]/[facility] Co de Phone Number [facility] [address] [facility] [address] [place] [address] * Albumin Creatinine Ratio, Urine (10/10/2024 2:56 PM DIGITAL SERVICE ENGINEER) Albumin Ur 18.2 mg/L Comment: Interpretive Data No reference range established. Current interpretive data was last revised 2019. Creatinine Ur 127.3 mg/dL [facility] Comment: Interpretive Data No reference range established. Current interpretive data was last revised 2019. Albumin Creatinine Ratio, Ur 14 1 - 29 mg/g [facility] Urine 10/10/2024 2:56 PM DIGITAL SERVICE ENGINEER 10/10/2024 9:12 PM DIGITAL SERVICE ENGINEER Arlen [place] PUMP STATION OPERATOR LAB URINE ORDERABLES Final Resu lt Performing Organization Address City/[facility] [address]/ZIP Co de Phone Number [facility] [address] [address] [facility] [address] [place] [address] * Lipid panel (10/10/2024 2:56 PM DIGITAL SERVICE ENGINEER) Cholesterol 171 30 - 199 mg/dL Comment: [...] 3. Sean M et al. AMRIT Cardiol. 2019January 17;5(5):540-548. doi: [email or web address] Current Interpretive Data was last revised on 2024. Non-HDL Cholesterol 122 mg/dL [facility] Comment: Interpretive Data Ages < [...] revised on 2018. Chol/HDL ratio 3 [facility] Blood 10/10/2024 2:56 PM DIGITAL SERVICE ENGINEER 10/10/2024 9:12 PM DIGITAL SERVICE ENGINEER Arlen Welsh NP LAB BLOOD ORDERABLES Final Resu lt [facility] [address] [address] [facility] [place] [address] * Diabetic Eye Exam (01/10/2023) Historical Provider HEALTH MAINTENANCE Final Result from Last 3 Months or Most Recently Relevant to Health Maintenance Insurance [facility] MEDIC[facility] ADVANTAGE Member Subscriber Plan / Payer (Ef fective 2020-Present) Name:Carli Gates Relation to Subscriber:Self Name:Donpopnate Carli Anderson Payer ID:[id number] (NAIC) Type:[facility] MEDICARE Address: [place] [phone] Advance Directives For more information, please contact: [phone] * Full Code (Latest Code Status on File) Date Activated Date Inactivated Comments 02/15/2020 3:21 PM 02/18/2020 4:01 PM Care Teams Commercial Real Estate Broker Relationship Specialty Start Date End Date Jairo Kirby DO [address] [place] [address] PCP - General Family Medicine 11/13/20
--- OUTSIDE RECORDS SUMMARY | 2025-04-15 14:17 | XMS_ITS | Clinical Summary ---
Author Organization [facility] Address [address] [place] [address] Phone Care Team Providers Care Ward Service Supervisor Name Role Phone Sanaz Zelaya MD Primary Care Provider [phone] Allergies Active Allergy Reactions Criticality Noted Date [...] 2:51 AM CDT Height 175.3 cm (5' 9) 12/17/2015 2:51 AM CDT Body Mass Index 42.53 12/17/2015 2:51 AM CDT Plan of Treatment Not on file Care Teams Ward Service Supervisor Relationship Specialty Start Date End Date Sanaz Zelaya MD [address] [place] [id number] PCP - General General Surgery 10/24/15
--- OUTSIDE RECORDS SUMMARY | 2025-04-15 14:17 | XMS_ITS | Clinical Summary ---
Author Organization [facility] Address [address] [place] [address] Care Team Providers Care Educational Guidance Counselor Name Role Phone Jairo Kirby DO Primary Care Provider Allergies Active Allergy Reactions [...] 01/11/20 25 Active blood-glucose,re ceiver,cont (Dexcom G7 Sports Announcer) [facility] 1 Device continuously To continuously monitor blood [...] HOURS 02/23/20 25 Active [facility]2 M[facility] 03/29/20 25 Active OneTouch Delica Plus Lancet 33 gauge [facility] 03/29/20 25 Active baclofen (LIORESAL) 5 mg [...] 7.5mg weekly. E11.9 2 mL 01/11/20 25 025 Discontin ued(Thera py completed ) methocarbamoL (ROBAXIN) 500 mg tabletIndication s:Muscle Spasm Take 1 tablet (500 mg total) by mouth 3 (three) times a day 90 tablet 2 01/30/20 025 Discontin ued(Alter ayah therapy) Active Problems Problem Noted Date Diagnosed Date Severe obesity 10/10/2024 Hyperthyroidism 10/10/2024 Assessment & Plan (10/10/2024 2:59 PM SWITCHBOARD WIRER): This is a chronic condition which is [...] am Repeat TSH in 2 months at [facility]. Prescription sent to hospital lab Hyperlipidemia associated with type 2 diabetes zehra jiménez 12/02/2023 Assessment & Plan (10/10/2024 3:01 PM SWITCHBOARD WIRER): This is a chronic condition which is [...] 09/01/2023 Assessment & Plan (10/10/2024 3:06 PM SWITCHBOARD WIRER): This is a chronic condition which is [...] therapy Assessment & Plan (09/01/2023 10:46 AM SWITCHBOARD WIRER): This is a chronic condition which is at goal of less than 7%. Personally reviewed most recent A1c - Lab Results Component Value Date HGBA1C 6.7 09/01/2023 Personally reviewed POC blood sugar- at goal 80-180 Lab Results Component Value Date POCGLU 138 09/01/2023 Medication- continue jardiance 25mg daily, omnipod- 0.65 units/hr with presets boluses. Monitor blood sugar continuously with Aegis Identity Softwarestyle cheryl 3 sensor. Encouraged annual eye exam. [...] . Assessment & Plan (10/10/2024 3:04 PM SWITCHBOARD WIRER): This is a chronic condition which is [...] . Assessment & Plan (09/01/2023 11:03 AM SWITCHBOARD WIRER): This is a chronic condition which is [...] hyperglycemia Assessment & Plan (10/10/2024 3:02 PM SWITCHBOARD WIRER): Continuous glucose monitor (cgm) applied from 09/27/2024 [...] hyperglycemia Assessment & Plan (09/01/2023 11:04 AM SWITCHBOARD WIRER): Continuous glucose monitor (cgm) applied from 08/19/2023 to 09/01/2023 This device was placed for monitor and treatment of blood sugar. Interpretation of data- average glucose 147, in target range 86%, 0 hypoglycemia, 14% hyperglycemia Cochlear implant in place 05/30/2020 Assessment & Plan (05/30/2020 12:07 PM CDT): Left otalgia after CI/labyrinthectomy. No obvious infection but very tender over electronic equipment repairmen/stimulator, no signs of meningitis or middle ear infection. Augmentin one week. RTC for re-evaluation if not improving. He is also meeting with Arlen Gore for CI check today. Sensorineural hearing loss (SNHL) of both ears 0 01/29/2020 Overview (01/29/2020): Added automatically from request for surgery [id number] Migraine with aura and witho ut status migrainosus, not intractable 09/06/2019 Hypertension associated with type 2 diabetes mali litus 09/06/2019 Assessment & Plan (10/10/2024 3:01 PM SWITCHBOARD WIRER): This is a chronic condition which is [...] B/P Assessment & Plan (09/01/2023 11:00 AM SWITCHBOARD WIRER): This is a chronic condition which is [...] 09/06/2019 Assessment & Plan (10/10/2024 3:01 PM SWITCHBOARD WIRER): This is a chronic condition which continues [...] exercise Assessment & Plan (09/01/2023 10:59 AM SWITCHBOARD WIRER): This is a chronic condition which continues [...] (01/29/2020): Added automatically from request for surgery [id number] Chronic seromucinous otitis media, left 07/09/2019 08/26/2022 Sensorineural hearing loss of both ears 08/18/2018 11/19/2024 Encounters Date Type Department Care Team Description 04/11/2025 4:00 PM CDT Office Visit [facility] Diabetes Endocrine Care at [address] [phone] Arlen Welsh, RUBEN Type 2 diabetes mellitus with hypoglycemia without coma, with long-term current use of insulin (HCC) (Primary Dx); Acquired hypothyroidism; Hyperthyroidism; Hypertension associated with type 2 diabetes mellitus (HCC); Hyperlipidemia associated with type 2 diabetes mellitus (HCC); Dexcom 7 continuous glucose monitoring device; Omnipod dash Insulin pump in place 04/10/2025 12:00 PM CDT Clinical Support [facility] Neuro Psychology [address] [facility] [address] [place] [phone] Emelina Avila, PhD Memory problem 04/01/2025 2:30 PM CDT Procedure visit [facility] Otolaryngology [address] [place] [address] 11th [place] [address] [place] [address] Colt Crowe Au.D. Sensorineural hearing loss, bilateral (Primary Dx); Encounter for adjustment and management of cochlear device 04/01/2025 8:05 AM CDT - 04/01/2025 11:59 PM CDT Hospital Encounter [facility] Pain Center at the [facility] Medicine [facility] [facility] [address] [place] [address] Reggie Ta NP Lumbar radiculopathy (Primary Dx); Sacroiliitis Discharge Disposition: Discharge to home or self care 03/15/2025 2:03 PM CDT - 03/15/2025 11:59 PM CDT Hospital Encounter [facility] [address] [place] [address] Lumbar radiculopathy Discharge Disposition: Discharge to home or self care 03/14/2025 4:00 PM CDT Procedure visit [facility] Otolaryngology [address] [facility] 11th [place] [address] [place] [address] Filomena Paez Au.D. Sensorineural hearing loss, bilateral (Primary Dx); Encounter for adjustment and management of cochlear device 03/12/2025 9:00 AM CDT Office Visit [facility] General Neurology [address] [facility] 6th [address] [place] [address] Edie Jung PA Vestibular migraine (Primary Dx); Memory problem 02/25/2025 2:00 PM CDT Office Visit [facility] Pain Management [address] [facility] [address] [place] [phone] Maricruz Greer, PhD Other chronic pain (Primary Dx); Other specified depressive disorder; PTSD (post-traumatic stress disorder); Fibromyalgia; Meniere's disease of right ear 01/22/2025 Telephone [facility] at [facility] [place] [facility] [address] [facility] [address] [place] [address] Reggie Ta NP 01/14/2025 Telephone [facility] [place] [facility] Advanced Medicine [address] [place] [address] Tam Hsu MD PMC Preprocedure 01/14/2025 Results Follow-Up [facility] Diabetes Endocrine Care at [address] [place] [phone] Arlen Welsh, CONSTRUCTION QUALITY CONTROL MANAGER Thyroid Function [place], T4, free, T3, free from Last 3 Months Immunizations Immunization Administration [...] ca w/ met s Hypertension Father Tha Gates Migraines Father Tha Gates Osteoarthritis Father Tha Gates Rheum arthritis Father Tha Gates Arthritis Mother Laureen Gates Rashes / Skin problems Mother Laureen Gates Rheum arthritis Mother Laureen Gates Anesthesia problems Neg Hx Relation Name Status Comments Brother Jorge L Alive Father Tha Gates Mother Laureen Gates Alive Social History Tobacco [...] on file Legal Sex Male 8:29 PM SWITCHBOARD WIRER Gender Identity Male 10/17/2020 1:52 PM SWITCHBOARD WIRER Sexual Orientation Straight 10/17/2020 1: 52 PM SWITCHBOARD WIRER Obstetrics History Last Filed Vital Signs Vital [...] 04/11/2025 3:42 PM CDT Plan of Treatment Health Maintenance Due Date Last Done Comments Colon Cancer Screening-Colonoscopy 1979 Depression Screening 1979 Hepatitis C Screening 1979 DTaP/Tdap/Td Vaccine (1 - Tdap) 1990 Regular Well Visit/Exam 18-64 1997 Pneumococcal vaccine <65 (2 of 2 - PCV) 11/26/2020 11/27/2019 Covid-19 Vaccine ( - 2023- season) 2024 06/27/2021, 12/22/2020, 11/24/2020 Dilated Eye Exam 01/10/2025 01/10/2023 Influenza Vaccine (#1) 2025 3, 06/27/2021, 06/14/2020, Additional history exists Albumin Creatinine Ratio, Urine 10/10/2025 10/10/2024, 09/22/2023 Foot Exam 10/10/2025 10/10/2024, 06/12/2023, 12/01/2023, Additional history exists Lipid Panel 10/10/2025 10/10/2024, 09/22/2023 Hemoglobin A1C 10/12/2025 04/11/2025, 12/19, 10/10/2024, Additional history exists eGFR 11/19/2025 11/19/2024, 09/20, 09/22/2023, Additional history exists Hepatitis B Screening Completed 06/12/2013, 013 HPV Vaccines Aged Out No longer eligi ble based on patient's age to complete this topic Goals Goal Patient Goal Type Associated Problems Recent Progress Patient-Stated? Author CCM Chronic Pain Care Plan Chronic Care Management Worsening( 8:31 AM CDT) No Alex lange, Leatha Perez RN Note: Problem: Chronic Pain Goals: 1. Minimize further functional decline 2. Maximize quality of life 3. Control pain Strategies: - Activity/exercise program recommendation - Conservative stepwise pain medicine strategy with multi-disciplinary approach - Recommend healthy lifestyle strategies and compensatory methods as needed Medical Devices Implanted Type Area Straddle Carrier Operator Device Identifier Shelf Expiration Date Model / Serial / Lot Medtronic Inc Chelle 9.5mm 1.14mm 12mm Soft Ear T Flange Grommet Tube [id number] - [id number] Implanted:Qty : 1 on 07/26/2022 by Alon Anguiano MD at [facility] Tube Right: Cochlea Medtronic Inc [id number] 01/26/2030 [id number] / / [id number] Advanced [employer] Hires Ultra Hifocus 3d Mid Gaby Electrode Implant Cochlear Ci-1601-04 - [id number] - [id number] Implanted:Qty : 1 on 07/26/2022 by Alon Anguiano MD at [facility] Medicine Left: Cochlea [employer] [id number] 09/18/2024 CI-1601-04 / [id number] / Explanted Type Area Straddle Carrier Operator Device Identifier Shelf Expiration Date Model / Serial / Lot Advanced [employer]ion[employer] Ci-1601-04 Hires Ultra Hifocus 3d Mid Gaby Electrode Implant Cochlear - [id number] - [id number] Implanted:Qty : 1 on 02/15/2020 by Alon Anguiano MD at [facility] Explanted:Qty : 1 on 07/26/2022 at [facility] Left: Cochlea [employer] [id number] 12/17/2022 CI-1601-0 4 [id number] / Procedures Procedure Name Priority Date/Time Associated [...] Lumbar radiculopathy EGFR Routine 11/19/2024 9:15 AM SWITCHBOARD WIRER Fibromyalgia Polyarthritis LIPID PANEL Routine 10/10/2024 2:56 PM SWITCHBOARD WIRER Type 2 diabetes mellitus with hypoglycemia without coma, with long-term current use of insulin (HCC) ALBUMIN CREATININE RATIO, URINE Routine 10/10/2024 2:56 PM SWITCHBOARD WIRER Hyperlipidemia associated with type 2 diabetes mellitus (HCC) DIABETIC EYE EXAM Routine 01/10/2023 from Last 3 Months or Most Recently Relevant to Health Maintenance Results * POCT hemoglobin A1c (04/11/2025 3:46 PM CDT) Hemoglobin A1C, POC 4.7 4.0 - 5.6 % Blood 04/11/2025 3:46 PM CDT us Arlen Welsh NP POINT OF CARE TEST ORDERABLES F inal Result * POCT glucose (04/11/2025 3:44 PM CDT) Glucose Blood, POC 107 Normal Fasting 70 - 100, Random <200 mg/dL Blood 04/11/2025 3:44 PM CDT Arlen Welsh CONSTRUCTION QUALITY CONTROL MANAGER POINT OF CARE TEST ORDERABLES F inal [...] it. Electronically signed by: Daniel Rader MD Reggie Ta CONSTRUCTION QUALITY CONTROL MANAGER IMG MRI PROCEDURES Milagros l Result * eGFR (11/19/2024 9:15 AM SWITCHBOARD WIRER) eGFR >90 >=60 mL/min/1. 73 m2 Comment: [...] last reviewed 2021. Blood 11/19/2024 9:15 AM SWITCHBOARD WIRER 11/19/2024 9:47 AM SWITCHBOARD WIRER Irena Mayer CONSTRUCTION QUALITY CONTROL MANAGER LAB BLOOD ORDERABLES Fi nal Result HARY[facility] [id number] [facility]. [place] [address] * Albumin Creatinine Ratio, Urine (10/10/2024 2:56 PM SWITCHBOARD WIRER) Albumin Ur 18.2 mg/L Comment: Interpretive Data No reference range established. Current interpretive data was last revised 2019. Creatinine Ur 127.3 mg/dL HARRY Comment: Interpretive Data No reference range established. Current interpretive data was last revised 2019. Albumin Creatinine Ratio, Ur 14 1 - 29 mg/g HARRY Urine 10/10/2024 2:56 PM SWITCHBOARD WIRER 10/10/2024 9:12 PM SWITCHBOARD WIRER us Arlen Welsh NP LAB URINE ORDERABLES Final Resu lt [facility] [address] [address] Department [place] [address] * Lipid panel (10/10/2024 2:56 PM SWITCHBOARD WIRER) Cholesterol 171 30 - 199 mg/dL Comment: [...] 3. Sean Lan et al. AMRIT Cardiol. 2020 January 17;5(5):540-548. [...] ratio 3 HARRY Blood 10/10/2024 2:56 PM SWITCHBOARD WIRER 10/10/2024 9:12 PM SWITCHBOARD WIRER us Arlen Welsh CONSTRUCTION QUALITY CONTROL MANAGER LAB [place]LOOD [place] [address] [address] [place] [address] * Diabetic Eye Exam (01/10/2023) us Historical Provider HEALTH MAINTENANCE Final Result from Last 3 Months or Most Recently Relevant to Health Maintenance Insurance Member Subscriber Plan / Payer (Ef fective 2023-Present) Name:Carli Gates Relation to Subscriber:Self Name:Carli Gates Payer ID:[id number] (NAIC) Type:[facility] MEDIC[facility] Address: [place] [phone] [facility] MEDICARE ADVANTAGE Advance Directives For more information, please contact: [phone] * Full Code (Latest Code Status on File) Date Activated Date Inactivated Comments 02/15/2020 3:21 PM 02/18/2020 4:01 PM Care Teams Educational Guidance Counselor Relationship Specialty Start Date End Date Jairo Kirby DO [address] [place] [address] PCP - General Family Medicine 11/13/20
[2025-04-15 15:18] LABS: Thyroid Stimulating Hormone Reflex 0.740 uIU/mL (0.465-4.68)
== END 2025-04-15 14:13 | disposition home or self-care (01) ==
LOC: CHSLAB 14:14
PROVIDERS: PCP Family Medicine; Visit Provider Nurse Practitioner
DX: E03.9 Hypothyroidism, unspecified (principal)
CPT/HCPCS: 36415; 84443

== ENCOUNTER 2025-05-26 20:26 | Emergency (ER) | payer MEDICARE, SELFPAY ==
--- OUTSIDE RECORDS SUMMARY | 2017-06-09 10:13 | XMS_ITS | Continuity of Care Document ---
Author Organization [facility] Address [address] [facility] [address] [place] [address] Phone Care Team Providers Care Science Technicians Name Role Phone Aris MS, OTR/L, CHT, Maricruz Unavailable Unavailable Procedures Procedure Date Progress Note Therapeutic Exercise Therapeutic Activities Neuromuscular Re-Ed Manual Therapy Hot or Cold Pack OT Evaluation Moderate Complexity Therapeutic Exercise Therapeutic Activities Neuromuscular Re-Ed Manual Therapy Hot or Cold Pack Wrist Immobilization w/ clam shell Elastic Stocknett Advance Directives Directive Yes / No Effective Date File Name No Information Encounters Encounter Description Practice Location Reason(s) For Visit Diagnoses Date Provider Providers Copied on Encounter [facility], [id number], tel:[phone] [place] No Information 7 Aris Alcantara. [address] [facility], [facility] [address], [address], [place]. tel:[phone] [facility] [facility] [address], [place], [place], [id number], tel:[phone] [place] No Information 7 Aris Alcantara. [address] [facility], [address], [place], [facility], . tel:[phone] Referring Provider: Willy Chatterjee, [address] [place] [address] [address], [place], [address]. tel:[phone], [id number], tel:[phone] [place] Pain in right wristStiffness of right wrist, not elsewhere classifiedOther specified health status 7 Aris Alcantara. [address] [facility], [address], [place], [facility], [place]. tel:[phone] Referring Provider: Willy Chatterjee, [address] [facility] [address], [place], [place], [facility]. tel:[phone], [id number], tel:[phone] [place] Pain in right handStiffness of right hand, not elsewhere classifiedOther specified soft tissue disordersMuscle weakness (generalized)St rain of unsp musc/fasc/tend at wrs/hnd lv, r hand, subs Jhon- 7 Luciano Waters. [address] [place] [address], [address], [place], [facility], . tel:[phone] Referring Provider: Willy Lan, [address] [facility] [address], [place], [address]. tel:[phone] Family History Family Member Type Diagnosis Age At Onset No Information Payers Payer name Insurance type Covered alliance party ID Authorgal camilaelizabeth(s) [place] Insurance [id number] Social History Type Description Quantity Date Captured Comments Sex Male Smoking Status No Information Chief Complaint And Reason For Visit No Information Reason For Referral Reason For Referral No Information History Of Present Illness Encounter Date Complaint History Of Prese nt Illness No Information Functional Status Date Functional Assessmen t No Information Instructions Date Instruction Additional Infor mation No Information Assessments Type Assessment Date No Information Patient Care Teams Name Effective Dates (start - stop) Status Members No Information
--- OUTSIDE RECORDS SUMMARY | 2017-06-09 10:13 | XMS_ITS | Continuity of Care Document ---
Author Organization [facility] Address [address] [facility] [address] [place] [address] Phone Care Team Providers Care Superintendent Institution Name Role Phone Aris MS, OTR/L, CHT, [...] Diagnoses Date Provider Providers Copied on Encounter [facility], [id number], tel:[phone] [place] No Information 7 Aris Alcantara. [address] [facility], [facility] [address], [address], [place]. tel:[phone] [facility] [facility] [address], [place], [place], [id number], tel:[phone] [place] No Information 7 Aris Alcantara. [address] [facility], [address], [place], [facility], . tel:[phone] Referring Provider: Willy Chatterjee, [address] [place] [address] [address], [place], [address]. tel:[phone], [id number], tel:[phone] [place] Pain in right wristStiffness of right wrist, not elsewhere classifiedOther specified health status 7 Aris Alcantara. [address] [facility], [address], [place], [facility], [place]. tel:[phone] Referring Provider: Willy Chatterjee, [address] [facility] [address], [place], [place], [facility]. tel:[phone], [id number], tel:[phone] [place] Pain in right handStiffness of right hand, not elsewhere classifiedOther specified soft tissue disordersMuscle weakness (generalized)St rain of unsp musc/fasc/tend at wrs/hnd lv, r hand, subs Jhon- 7 Luciano Waters. [address] [place] [address], [address], [place], [facility], . tel:[phone] Referring Provider: Willy Lan, [address] [facility] [address], [place], [address]. tel:[phone] Family History Family Member Type Diagnosis Age At Onset No Information Payers Payer name Insurance type Covered green party ID Authorgal camilaelizabeth(s) [place] [employer] [id number] Social History Type Description Quantity Date Captured [...]
--- OUTSIDE RECORDS SUMMARY | 2025-05-26 20:28 | XMS_ITS | Clinical Summary ---
Author Organization [facility] Address [address] [place] [address] Care Team Providers Care Yarn Inspector Name Role Phone Jairo Kirby DO Primary [...] E11.65 10 each 3 11/12/19 25 Active blood-glucose,re ceiver,cont (Dexcom G7 Label Sewer) muscogee 1 Device continuously To continuously monitor blood [...] HOURS 02/23/20 25 Active [facility] 03/29/20 25 Active OneTouch Delica Plus Lancet 33 gauge muscogee 03/29/20 25 Active baclofen (LIORESAL) 5 mg [...] LONGER THAN 2 WEEKS 04/02/20 25 Active predniSONE (DELTASONE) 10 mg tablet TAKE 6 TABS ON DAY 1, 5 ON DAY 2, 4 ON DAY 3, 3 ON DAY 4, 2 ON DAY 5, 1 ON DAY 6 04/02/20 25 Active predniSONE (DELTASONE) 20 mg tablet TAKE 2 TABLETS BY MOUTH DAILY FOR 3 DAYS 05/01/20 Active betahistine Take 1 capsule (8 mg total) by mouth 3 (three) times a day 90 capsule 2 05/08/20 Active tirzepatide (Mounjaro) 10 mg/0.5 mL pen injector injectionIndicat ions:type 2 diabetes mellitus Inject 0.5 mL (10 mg total) under the skin every 7 days E11.9 2 mL 11 05/09/20 25 Active tirzepatide (Mounjaro) 7.5 mg/0.5 mL pen injector injectionIndicat ions:type 2 diabetes mellitus Inject 0.5 mL (7.5 mg total) under the skin every 7 days And we will titrate as needed. E11.9 2 mL 11 01/11/20 25 025 Discontin ued(Thera py completed ) Active Problems Problem Noted Date Diagnosed Date Lumbar radiculopathy 05/09/2025 Abdominal pain 05/08/2025 Back pain 05/08/2025 Flank pain 05/08/2025 Viera esophagus 05/08/2025 Biceps tendinitis of left shoulder 05/08/2025 Obesity, Class III, BMI 40-49.9 (morbid obesity) 05/08/2025 Depression 05/08/2025 Diabetes mellitus 05/08/2025 Flu-like symptoms 05/08/2025 Gastritis 05/08/2025 Gout flare 05/08/2025 Headache, chronic migraine without aura 05/08/20 Hematuria 05/08/2025 IBS (irritable bowel syndrome) 05/08/2025 Left shoulder pain 05/08/2025 Left shoulder tendinitis 05/08/2025 Fibromyalgia 05/08/2025 Polymyalgia rheumatica 05/08/2025 Nephrolithiasis 05/08/2025 Neuropathy 05/08/2025 Peptic ulcer disease 05/08/2025 Podagra 05/08/2025 Polyarthritis 05/08/2025 PTSD (post-traumatic stress disorder) 05/08/2025 Sprain of left rotator cuff capsule 05/08/2025 SLAP tear of shoulder 05/08/2025 Type 2 superior labral anter [id number] (SLAP) tear of shoulder 05/08/2025 UTI (urinary tract infection) 05/08/2025 Severe obesity 10/10/2024 Hyperthyroidism 10/10/2024 Assessment & Plan (10/10/2024 2:59 PM SUSTAINABLE PRODUCTS MARKETING MANAGER): This is a chronic condition which is [...] am Repeat TSH in 2 months at [facility]. Prescription sent to hospital lab Hyperlipidemia associated with type 2 diabetes zehra jiménez 12/02/2023 Assessment & Plan (10/10/2024 3:01 PM SUSTAINABLE PRODUCTS MARKETING MANAGER): This is a chronic condition which is [...] 09/01/2023 Assessment & Plan (10/10/2024 3:06 PM SUSTAINABLE PRODUCTS MARKETING MANAGER): This is a chronic condition which is [...] therapy Assessment & Plan (09/01/2023 10:46 AM SUSTAINABLE PRODUCTS MARKETING MANAGER): This is a chronic condition which is [...] . Assessment & Plan (10/10/2024 3:04 PM SUSTAINABLE PRODUCTS MARKETING MANAGER): This is a chronic condition which is [...] . Assessment & Plan (09/01/2023 11:03 AM SUSTAINABLE PRODUCTS MARKETING MANAGER): This is a chronic condition which is [...] hyperglycemia Assessment & Plan (10/10/2024 3:02 PM SUSTAINABLE PRODUCTS MARKETING MANAGER): Continuous glucose monitor (cgm) applied from 09/27/2024 [...] of blood sugar. Reports ongoing issues with Subitecstyle Cheryl 3 staying on and being accurate Has contacted the company directly and had several replacement Interpretation of data- average glucose 120, in target range 95%, 0 hypoglycemia, 5% hyperglycemia Assessment & Plan (09/01/2023 11:04 AM SUSTAINABLE PRODUCTS MARKETING MANAGER): Continuous glucose monitor (cgm) applied from 08/19/2023 to 09/01/2023 This device was placed for monitor and treatment of blood sugar. Interpretation of data- average glucose 147, in target range 86%, 0 hypoglycemia, 14% hyperglycemia Cochlear implant in place 05/30/2020 Assessment & Plan (05/30/2020 12:07 PM CDT): Left otalgia after CI/labyrinthectomy. No obvious infection but very tender over paper winder/stimulator, no signs of meningitis or middle ear infection. Augmentin one week. RTC for re-evaluation if not improving. He is also meeting with Arlen Gore for CI check today. Sensorineural hearing loss (SNHL) of both ears 0 01/29/2020 Overview (01/29/2020): Added automatically from request for surgery [id number] Migraine with aura and witho ut status migrainosus, not intractable 09/06/2019 Hypertension associated with type 2 diabetes mali litus 09/06/2019 Assessment & Plan (10/10/2024 3:01 PM SUSTAINABLE PRODUCTS MARKETING MANAGER): This is a chronic condition which is [...] B/P Assessment & Plan (09/01/2023 11:00 AM SUSTAINABLE PRODUCTS MARKETING MANAGER): This is a chronic condition which is [...] 09/06/2019 Assessment & Plan (10/10/2024 3:01 PM SUSTAINABLE PRODUCTS MARKETING MANAGER): This is a chronic condition which continues [...] exercise Assessment & Plan (09/01/2023 10:59 AM SUSTAINABLE PRODUCTS MARKETING MANAGER): This is a chronic condition which continues Encouraged healthy eating and exercise Vestibular migraine 02/19/2019 Meniere's disease 09/04/2018 Resolved Problems Problem Noted Date Diagnosed Date Resolved Date Acute middle ear effusion 05/08/2025 Mastoid pain 05/08/2025 05/08/2025 Mastoiditis 05/08/2025 05/08/2025 Sinus infection 05/08/2025 05/08/2025 Sinus pressure 05/08/2025 05/08/2025 URI (upper respiratory infection) 05/08/2025 05/08/2025 Chronic otitis media 08/26/2022 025 Meniere's disease of left ear 01/29/2020 01/19/2021 Overview (01/29/2020): Added automatically from request for surgery [id number] Chronic seromucinous otitis media, left 07/09/2019 08/26/2022 Sensorineural hearing loss of both ears 08/18/2018 11/19/2024 Mixed hearing loss, bilateral 08/18/2018 05/08/2025 Assessment & Plan (12/14/2019 2:22 PM CDT): Right middle ear effusion- ear tube placed. Left ear Meniere's disease- he is planning a left labyrinthectomy and cochlear implant in the future with Dr. Anguiano. Encounters Date Type Department Care Team Description 05/14/2025 Telephone [facility] Medicine Otolaryngology [address] [place] [address] Bryan Gilma, 05/09/2025 7:47 AM CDT - 05/09/2025 11:59 PM CDT Hospital Encounter [facility] [address] [place] [address] Tam Hsu MD Lumbar radiculopathy (Primary Dx); Neuroforaminal stenosis of lumbar spine; Spinal stenosis of lumbar region, unspecified whether neurogenic claudication present; Impaired functional mobility, balance, gait, and endurance; Chronic pain syndrome Discharge Disposition: Discharge to home or self care 05/08/2025 10:00 AM CDT Office Visit [facility]) - [facility] Medicine ENT [address] [place] [address] [place] [address] Alon Anguiano MD Cochlear implant in place (Primary Dx); Sensorineural hearing loss (SNHL) of both ears; Meniere's disease of both ears 05/08/2025 Orders Only [facility] Otolaryngology [address] [place] [phone] Ruth Black CMA 05/06/2025 Telephone [facility] [address] [place] [address] Tam Hsu MD PMC Preprocedure 04/11/2025 4:00 PM CDT Office Visit [facility] Diabetes Endocrine Care at [address] [place] [address] Arlen Welsh, RUBEN Type 2 diabetes mellitus with hypoglycemia without coma, with long-term current use of insulin (HCC) (Primary Dx); Acquired hypothyroidism; Hyperthyroidism; Hypertension associated with type 2 diabetes mellitus (HCC); Hyperlipidemia associated with type 2 diabetes mellitus (HCC); Dexcom 7 continuous glucose monitoring device; Omnipod dash Insulin pump in place 04/10/2025 12:00 PM CDT Clinical Support [facility] Neuro Psychology [address] [place] [phone] Emelina Avila, PhD Memory problem 04/01/2025 2:30 PM CDT Procedure visit [facility] Otolaryngology [address] [facility] [address] [place] [address] [place] [address] Colt Crowe Au.D. Sensorineural hearing loss, bilateral (Primary Dx); Encounter for adjustment and management of cochlear device 04/01/2025 8:05 AM CDT - 04/01/2025 11:59 PM CDT Hospital Encounter [facility] [address] [place] [address] Reggie Ta NP Lumbar radiculopathy (Primary Dx); Sacroiliitis Discharge Disposition: Discharge to home or self care 03/15/2025 2:03 PM CDT - 03/15/2025 11:59 PM CDT Hospital Encounter [facility] [address] [place] [address] Lumbar radiculopathy Discharge Disposition: Discharge to home or self care 03/14/2025 4:00 PM CDT Procedure visit [facility] Otolaryngology [address] [place] [address] [place] [address] Filomena Paez Au.D. Sensorineural hearing loss, bilateral (Primary Dx); Encounter for adjustment and management of cochlear device 03/12/2025 9:00 AM CDT Office Visit [facility] General Neurology [address] [place] [phone] Edie Jung PA Vestibular migraine (Primary Dx); Memory problem 02/25/2025 2:00 PM CDT Office Visit [facility] Pain Management [address] [place] [address] Maricruz Greer, PhD Other chronic [...] loss) Migraine brother and fath er Depression 2000 PTSD (post-traumatic stress disorder) Hypertension IBS (irritable bowel syndrome) Type 2 diabetes mellitus Vertigo Fatty liver GERD (gastroesophageal reflu x disease) 2014 Motion sickness Tinnitus 1989 Gout 2023 Hearing [...] on file Legal Sex Male 8:29 PM SUSTAINABLE PRODUCTS MARKETING MANAGER Gender Identity Male 10/17/2020 1:52 PM SUSTAINABLE PRODUCTS MARKETING MANAGER Sexual Orientation Straight 10/17/2020 1: 52 PM SUSTAINABLE PRODUCTS MARKETING MANAGER Obstetrics History Last Filed Vital Signs Vital Sign Reading Time Taken Comments Blood Pressure 157/98 05/09/2025 9:00 AM CDT Pulse 70 05/09/2025 9:00 AM CDT Temperature 36.5 C (97.7 F) 05/09/2025 7:52 AM CDT Respiratory Rate 16 05/09/2025 9:00 AM CDT Oxygen Saturation 98% 05/09/2025 9:00 AM CDT Inhaled Oxygen Concentration - - Weight 122.9 kg (271 lb) 05/09/2025 7:52 AM CDT Height 172.7 cm (5' 8) 05/09/2025 7:52 AM CDT Body Mass Index 41.21 05/09/2025 7:52 AM CDT Plan of Treatment Health Maintenance Due Date Last Done Comments Colon Cancer Screening-Colonoscopy 1979 Depression Screening 1979 Hepatitis C Screening 1979 DTaP/Tdap/Td Vaccine (1 - Tdap) 1990 Regular Well Visit/Exam 18-64 1997 Pneumococcal vaccine <65 (2 of 2 - PCV) 11/26/2020 11/27/2019 Dilated Eye Exam 01/10/2025 01/10/2023 Covid-19 Vaccine ( season) 2025 06/27/2021, 12/22/2020, 11/24/2020 Influenza Vaccine (#1) 2025 3, 06/19/2022, 06/27/2021, Additional history exists Albumin Creatinine Ratio, Urine [...] Worsening( 8:31 AM CDT) Tanya lange, Leatha Perez RN Note: Problem: Chronic Pain Goals: 1. Minimize further functional decline 2. Maximize quality of life 3. Control pain Strategies: - Activity/exercise program recommendation - Conservative stepwise pain medicine strategy with multi-disciplinary approach - Recommend healthy lifestyle strategies and compensatory methods as needed Medical Devices Implanted Type Area Circuit Court Clerk Device Identifier Shelf Expiration Date Model / Serial / Lot Med[employer]onic Inc Chelle 9.5mm 1.14mm 12mm Soft Ear T Flange Grommet Tube [id number] - [id number] Implanted:Qty : 1 on 07/26/2022 by Alon Anguiano MD at [facility] Tube Right: Cochlea Med[employer] Inc [id number] 01/26/2030 [id number] / / [id number] [employer] Hires Ultra Hifocus 3d Mid Gaby Electrode Implant Cochlear Ci-1601-04 - [id number] - [id number] Implanted:Qty : 1 on 07/26/2022 by Alon Anguiano MD at [facility] Medicine Left: Cochlea [employer] [id number] 09/18/2024 CI-1601-04 / [id number] / Explanted Type Area Circuit Court Clerk Device Identifier Shelf Expiration Date Model / Serial / Lot [employer] Ci-1601-04 Hires Ultra Hifocus 3d Mid Gaby Electrode Implant Cochlear - [id number] - [id number] Implanted:Qty : 1 on 02/15/2020 by Alon Anguiano MD at [facility] Explanted:Qty : 1 on 07/26/2022 at [facility] Left: Cochlea [employer] [id number] 12/17/2022 CI-1601-0 4 / [id number] / Procedures Procedure Name Priority Date/Time Associated Diagnosis Comments PAIN MGMT IMAGING LUMBAR/SACRAL SELECTIVE NERVE ROOT INJ (TFE) BILATERAL Schedule Routine, Read Routine (OP Routine) 05/09/2025 8:49 AM CDT Lumbar radiculopathy TSH Routine 2025 POCT HEMOGLOBIN A1C Routine [...] Lumbar radiculopathy EGFR Routine 11/19/2024 9:15 AM SUSTAINABLE PRODUCTS MARKETING MANAGER Fibromyalgia Polyarthritis LIPID PANEL Routine 10/10/2024 2:56 PM SUSTAINABLE PRODUCTS MARKETING MANAGER Type 2 diabetes mellitus with hypoglycemia without coma, with long-term current use of insulin (HCC) ALBUMIN CREATININE RATIO, URINE Routine 10/10/2024 2:56 PM SUSTAINABLE PRODUCTS MARKETING MANAGER Hyperlipidemia associated with type 2 diabetes mellitus (HCC) DIABETIC EYE EXAM Routine 01/10/2023 from Last 3 Months or Most Recently Relevant to Health Maintenance Results * Imaging Lumbar/Sacral Selective Nerve Root INJ (TFE) Bilateral ([id number]) (05/09/2025 8:49 AM CDT) Narrative [facility] - 05/09/2025 8:49 AM CDT The images from this study are not interpreted by Radiology. Please refer to the physician's procedure / OR operative note. Reggie Ta ORDER PACKER IMG PAIN MGMT PROCEDURE S Final Result Performing Organization Address City/[facility]/ZIP Co de Phone Number [facility] * TSH (2025) Scribed TSH 0.74 0.47 - 4.68 mcU/mL EXTERNAL LAB Blood 2025 Historical Provider MD LAB BLOOD ORDERABLES Milagros l Result Performing Organization Address City/[facility]/ZIP Co de Phone Number EXTERNAL LAB * POCT hemoglobin A1c (04/11/2025 3:46 PM CDT) Hemoglobin A1C, POC 4.7 4.0 - 5.6 % Blood 04/11/2025 3:46 PM CDT Arlen Welsh ORDER PACKER POINT OF CARE TEST ORDERABLES F inal Result * POCT glucose (04/11/2025 3:44 PM CDT) Glucose Blood, POC 107 Normal Fasting 70 - 100, Random <200 mg/dL Blood 04/11/2025 3:44 PM CDT Arlen Welsh NP POINT OF [...] signed by: Daniel Rader MD Reggie Ta ORDER PACKER IMG MRI PROCEDURES Milagros l Result * eGFR (11/19/2024 9:15 AM SUSTAINABLE PRODUCTS MARKETING MANAGER) eGFR >90 >=60 mL/min/1. 73 m2 Comment: [...] last reviewed 2021. Blood 11/19/2024 9:15 AM SUSTAINABLE PRODUCTS MARKETING MANAGER 11/19/2024 9:47 AM SUSTAINABLE PRODUCTS MARKETING MANAGER Irena Mayer ORDER PACKER LAB BLOOD ORDERABLES Fi nal Result Performing Organization Address City/[facility]/ZIP Co de Phone Number [facility] [address] [facility] [place] [address] * Albumin Creatinine Ratio, Urine (10/10/2024 2:56 PM SUSTAINABLE PRODUCTS MARKETING MANAGER) Albumin Ur 18.2 mg/L Comment: Interpretive Data No reference range established. Current interpretive data was last revised 2019. Creatinine Ur 127.3 mg/dL HARRY Comment: Interpretive Data No reference range established. Current interpretive data was last revised 2019. Albumin Creatinine Ratio, Ur 14 1 - 29 mg/g HARRY Urine 10/10/2024 2:56 PM SUSTAINABLE PRODUCTS MARKETING MANAGER 10/10/2024 9:12 PM SUSTAINABLE PRODUCTS MARKETING MANAGER Arlen Welsh ORDER PACKER LAB URINE ORDERABLES Final Resu lt HARRY [address] [address] [facility] [place] [address] * Lipid panel (10/10/2024 2:56 PM SUSTAINABLE PRODUCTS MARKETING MANAGER) Cholesterol 171 30 - 199 mg/dL Comment: [...] ratio 3 HARRY Blood 10/10/2024 2:56 PM SUSTAINABLE PRODUCTS MARKETING MANAGER 10/10/2024 9:12 PM SUSTAINABLE PRODUCTS MARKETING MANAGER Arlen Welsh NP LAB BLOOD ORDERABLES Final Resu lt HARRY [address] [address] Department [place] [address] * Diabetic Eye Exam (01/10/2023) us Historical Provider HEALTH MAINTENANCE Final Result from Last 3 Months or Most Recently Relevant to Health Maintenance Insurance [facility] MEDICARE ADVANTAGE MEDICARE ADVANTAGE MEDICARE ADVANTAGE Advance Directives For more information, please contact: [phone] * Full Code (Latest Code Status on File) Date Activated Date Inactivated Comments 02/15/2020 3:21 PM 02/18/2020 4:01 PM Care Teams Yarn Inspector Relationship Specialty Start Date End Date Jairo Kirby DO [address] [place] [address] PCP - General Family Medicine 11/13/20
--- OUTSIDE RECORDS SUMMARY | 2025-05-26 20:28 | XMS_ITS | Encounter Summary ---
Author Organization [facility] Healthcare Address [address] [place] [address] Care Team Providers Care Start Up Specialist Name Role Phone Jairo Kirby DO Primary Care Provider Encounter Details Date Type Department Care Team (Late st Contact Info) Description 11/09/[address] [facility] Surgeon [address] [place], [place] [id number] Reji Shaver MD [address] [phone] [place] [address] Social History Tobacco Use Types Packs/Day Years [...] on file Legal Sex Male 8:29 PM CANDY MAKER Gender Identity Male 10/17/2020 1:52 PM CANDY MAKER Sexual Orientation Straight 10/17/2020 1: 52 PM CANDY MAKER documented as of this encounter Plan of Treatment Not on file documented as of this encounter Visit Diagnoses Not on filedocumented in this encounter Care Teams Start Up Specialist Relationship Specialty Start Date End Date Jairo Kirby DO [address] [place] [address] PCP - General Family Medicine 11/13/20 documented as of this encounter
--- OUTSIDE RECORDS SUMMARY | 2025-05-26 20:28 | XMS_ITS | Clinical Summary ---
Author Organization [facility] Address [facility] [place] [address] Care Team Providers Care Web Page Developer Name Role Phone Hazel Mancera RN GASTROENTEROLOGY Primary Care Provider [phone] Social History Tobacco Use Types Packs/Day Years [...] patient's age to complete this topic Insurance [facility] Care Teams Web Page Developer Relationship Specialty Start Date End Date Hazel Mancera NP [address] [place] [phone] PCP - General NURSE PRACTITIONER 11/22/22
[2025-05-26 20:30] VITALS: BP 126/95; PULSE 105; RESP 18; TEMP 36.1; O2SAT 99
--- NOTE | 2025-05-26 20:36 | PC.NURSE ---
WE HAVE NOT BEEN ABLE TO GET VITALS DUE TO PATIENT CURRENTLY HAVING DIARRHEA AND SITTING ON BEDSIDE COMMODE
--- NOTE | 2025-05-26 20:46 | ED.GENADULT ---
HPI - General Adult General Chief complaint: Nausea/Vomiting/Diarrhea Stated complaint: N/V/D Time Seen by Provider: 05/26/25 20:31 History of Present Illness HPI narrative: Carli is a 45M with a PMH of DMII, LAURA, OA, gout flare, meniere disease, HTN obesity and headaches that was brought into the ED via EMS. He started having watery diarrhea, nausea, and vomiting six hours ago and became weak with some chest heaviness. He became very weak at [place] where he was playing the drums when he called EMS as he had become so weak. Related Data Home Medications ?Medication ?Instructions ?Recorded ?Confirmed ?Last Taken ?Type dicyclomine 20 mg tablet 20 mg PO QID 09/22/20 04/02/25 Unknown History famotidine 20 mg tablet 20 mg PO BID 09/22/20 04/02/25 Unknown History omeprazole 40 mg capsule,delayed 40 mg PO BID 09/22/20 04/02/25 Unknown History release dapagliflozin propanediol 10 mg 10 mg PO DAILY 01/05/24 04/02/25 Unknown History tablet galcanezumab-gnlm 120 mg/mL 120 mg subcut MONTHLY 01/05/24 04/02/25 Unknown History subcutaneous pen injector (Emgality Pen) insulin lispro-aabc 100 unit/mL 1 sliding scale dose subcut 01/05/24 04/02/25 Unknown History subcutaneous solution (Lyumjev USEASDIRECTD U-100 Insulin) meclizine 25 mg tablet 25 mg PO TID 01/05/24 04/02/25 Unknown History rizatriptan 10 mg tablet 10 mg PO ONCE 01/05/24 04/02/25 Unknown History rosuvastatin 20 mg tablet 20 mg PO DAILY 01/05/24 04/02/25 Unknown History sucralfate 1 gram tablet PO 01/05/24 04/02/25 Unknown History blood-glucose,athlete marketing agent,cont #1 ea 01/16/25 04/02/25 Unknown History (Dexcom G7 Registered Respiratory Technician) insulin pump cart,cont inf,BT #5 ea 01/16/25 04/02/25 Unknown History (Omnipod Dash Pods (Gen 4) subcutaneous cartridge) methimazole 10 mg tablet mg PO DAILY 01/16/25 04/02/25 Unknown History methocarbamol 500 mg tablet mg PO ONCE 01/16/25 04/02/25 Unknown History tirzepatide 2.5 mg/0.5 mL mg subcut 01/16/25 04/02/25 Unknown History subcutaneous pen injector (Mounjaro) Allergies Allergy/AdvReac Type Severity Reaction Status Date / Time clarithromycin Allergy Unknown nausea, Verified 05/26/25 20:31 vomiting, abd cramps Review of Systems Review of Systems: All systems reviewed & are unremarkable except as noted in HPI and below PMFSH Past Medical History Medical History History of stress test Obesity, Class III, BMI 40-49.9 (morbid obesity) PTSD (post-traumatic stress disorder) Depression IBS (irritable bowel syndrome) Headache, chronic migraine without aura Torsion of testicle Hypertension Diabetes mellitus Surgical History Surgical History History of testicular surgery History of placement of ear tubes History of liver biopsy History of eye surgery Family History Family History Other Family history of malignant neoplasm Hypertension Social History Social History Smoking status: Never smoker Alcohol intake: never Substance use: never Substance use type: does not use Lack of Transportation: No Lack of Food: Never True Current Housing: I Have Housing Concerned About Future Housing: No Difficulty Paying Gas/Electric Bills: No Difficulty Paying for Meds: No Currently Unemployed: No Education: High School Diploma/GED Difficulty w/ Childcare or Family Care: No Gender identity (if verbalized by the patient): Male Course Course Emergency Course: Ordered EKG, labs, normal saline and C. diff testing. EKG showed NSR with a rate of 86, normal axis and no ST elevation/depression. Labs showed leukocytosis with a WBC count of 16.1, mild EDISON with a Cr. of 1.4 After fluids and Zofran he was feeling better, and was given a water and a cup of jello. He ate this without difficulty. Vital Signs Vital signs: Vital Signs Temperature 97.0 F L 05/26/25 20:30 Pulse Rate 105 H 05/26/25 20:30 Respiratory Rate 18 05/26/25 20:30 Blood Pressure 126/95 H 05/26/25 20:30 Pulse Oximetry 99 05/26/25 20:30 Oxygen Delivery Room Air 05/26/25 20:30 Temperature 97.0 F L 05/26/25 20:30 Pulse Rate 105 H 05/26/25 20:30 Respiratory Rate 18 05/26/25 20:30 Blood Pressure 126/95 H 05/26/25 20:30 Pulse Oximetry 99 05/26/25 20:30 Oxygen Delivery Room Air 05/26/25 20:30 Medical Decision Making Vital Signs Vital Signs: Vital Signs Temperature 97.0 F L 05/26/25 20:30 Pulse Rate 105 H 05/26/25 20:30 Respiratory Rate 18 05/26/25 20:30 Blood Pressure 126/95 H 05/26/25 20:30 Pulse Oximetry 99 05/26/25 20:30 Oxygen Delivery Room Air 05/26/25 20:30 Temperature 97.0 F L 05/26/25 20:30 Pulse Rate 105 H 05/26/25 20:30 Respiratory Rate 18 05/26/25 20:30 Blood Pressure 126/95 H 05/26/25 20:30 Pulse Oximetry 99 05/26/25 20:30 Oxygen Delivery Room Air 05/26/25 20:30 Lab Data 05/26/25 21:53 05/26/25 21:53 Labs: Lab Results 05/26/25 Range/Units 21:53 WBC 16.1 H (4.8-10.8) K/mm3 RBC 5.36 (4.70-6.10) M/mm3 Hgb 15.7 (14.0-18.0) g/dL Hct 45.6 (40.0-54.0) % MCV 85.1 (78.0-102.0) fL MCH 29.3 (27.0-31.0) pg MCHC 34.4 (32-36) g/dL RDW 13.2 (11.6-14.4) % Plt Count 201 (150-420) K/mm3 MPV 8.7 (8.7-11.0) fl Immature Gran % (Auto) 0.4 H (0.0-0.0) % Neut % (Auto) 90.8 H (50.0-70.0) % Lymph % (Auto) 3.4 L (18.0-42.0) % [place] % (Auto) 5.0 (2.0-11.0) % Eos % (Auto) 0.0 L (1.0-6.0) % Baso % (Auto) 0.4 (0.0-1.0) % Lymph # (Auto) 0.55 L (1.10-4.50) K/mm3 [place] # (Auto) 0.80 (0.10-0.90) K/mm3 Eos # (Auto) 0.00 L (0.02-0.50) K/mm3 Baso # (Auto) 0.07 (0.00-0.10) K/mm3 Abs Immat Gran (auto) 0.07 H (0.00-0.00) K/mm3 Absolute Neuts (auto) 14.59 H (1.70-7.20) K/mm3 Absolute Nucleated RBC 0.00 (0.00-0.00) K/mm3 Nucleated RBC % 0.0 (0-0.0) % Sodium 140 (137-145) mmol/L Potassium 4.6 (3.4-5.0) mmol/L Chloride 105 (98-107) mmol/L Carbon Dioxide 21 L (22-30) mmol/L Anion Gap 14 H (4-12) mmol/L BUN 30 H (9-20) mg/dL Creatinine 1.40 H (0.7-1.3) mg/dL Estim Creat Clear Calc 74 ml/min Estimated GFR 55 L (59 - ) Glucose 126 H (65-110) mg/dL Calculated Osmolality 298 H (285-295) mOsm/kg Lactic Acid 1.2 (0.4-2.0) mmol/L Calcium 10.0 (8.4-10.2) mg/dL Total Bilirubin 1.2 (0.2-1.3) mg/dL AST 33 (17-59) U/L ALT 27 (6-50) U/L Alkaline Phosphatase 119 (38-126) U/L Troponin I < 0.012 (0.000-0.034) ng/mL NT-Pro-B Natriuret Pep 57 (19.9-100) pg/mL Total Protein 7.9 (6.3-8.2) g/dL Albumin 4.9 (3.5-5.1) g/dL Lipase 34 (23-300) U/L Discharge Plan Discharge Clinical Impression: Gastroenteritis Patient Disposition: Home Condition: Stable Instructions: Gastroenteritis (ED) Patient Language: Libyan Prescriptions: New ondansetron 4 mg tablet,disintegrating 4 mg PO Q8H PRN (Reason: nausea and vomiting) Qty: 20 0RF No Action ondansetron HCl [Zofran] 4 mg tablet 4 mg PO Q8H PRN (Reason: nausea and vomiting) Qty: 30 0RF colchicine 0.6 mg tablet See Rx Instructions PO DAILY Qty: 6 3RF Rx Instructions: 1.2 mg PO x1, then 0.6 mg PO 1h later x1; Max: 1.2 mg/day; Info: wait 12h after acute gout flare tx before resuming prophylaxis azelastine 0.05 % drops 1 drp EACH EYE BID PRN (Reason: allergic conjunctivitis) Qty: 6 1RF prazosin 2 mg capsule 2 mg PO QHS Qty: 30 3RF Savella 12.5 mg (5)-25 mg(8)-50 mg(42) tablets,dose pack See Rx Instructions PO PER PKG DIR Qty: 55 0RF Rx Instructions: PO PER PKG DIR Mounjaro 2.5 mg/0.5 mL pen injector subcut (DME) Dexcom G7 Registered Respiratory Technician Misc See Rx Instructions .ROUTE .MEDSUPPLY Qty: 1 Rx Instructions: As directed (DME) Omnipod Dash Pods (Gen 4) Cartridge See Rx Instructions .ROUTE .MEDSUPPLY Qty: 5 Rx Instructions: As directed methocarbamol 500 mg tablet PO ONCE methimazole 10 mg tablet PO DAILY dicyclomine 20 mg tablet 20 mg PO QID famotidine 20 mg tablet 20 mg PO BID omeprazole 40 mg capsule,delayed release(DR/EC) 40 mg PO BID Lyumjev U-100 Insulin 100 unit/mL solution 1 sliding scale dose subcut USEASDIRECTD dapagliflozin propanediol 10 mg tablet 10 mg PO DAILY rosuvastatin 20 mg tablet 20 mg PO DAILY rizatriptan 10 mg tablet 10 mg PO ONCE Rx Instructions: as a single dose meclizine 25 mg tablet 25 mg PO TID sucralfate 1 gram tablet PO Emgality Pen 120 mg/mL pen injector 120 mg subcut MONTHLY bupropion HCl 300 mg tablet extended release 24 hr 300 mg PO QAM Qty: 90 0RF ipratropium bromide 42 mcg (0.06 %) spray,non-aerosol 2 spray intranasal TID PRN (Reason: allergy symptoms) Qty: 15 5RF Rx Instructions: administer into each nostril azelastine 137 mcg (0.1 %) spray,non-aerosol 137 mcg intranasal Q12H Qty: 30 1RF Rx Instructions: administer into each nostril amlodipine 10 mg tablet 10 mg PO DAILY Qty: 90 0RF triamcinolone acetonide 0.1 % ointment 1 applic topical BID PRN (Reason: itching) Qty: 80 0RF prednisone 10 mg tablet 10 mg PO DIRECTED Qty: 21 0RF Rx Instructions: 6-5-4-3-2-1 (DME) Blood Glucose Test Strip See Rx Instructions .Route Qty: 100 5RF Rx Instructions: As directed. Testing TID. Dx: E11.9 (DME) pen needle, diabetic [1st Tier Unifine Pentips] 31 gauge x 5/16 needle See Rx Instructions .Route Qty: 100 5RF Rx Instructions: As directed. Using BID. Dx: E11.9 (DME) SharpSafety Container Misc See Rx Instructions .Route Qty: 3 0RF Rx Instructions: As directed Follow-up/Referrals: Jairo Kirby, DO [Primary Care Provider, Family Practice]
--- NOTE | 2025-05-26 20:51 | ECG_ITS ---
Test Date: 2025-05-26 22:44:02 Measurements Intervals [place] Rate: 86 P: 47 TX: 184 QRS: 15 QRSD: 102 T: 22 QT: 362 QTc: 434 Interpretive Statements SINUS RHYTHM INFERIOR MYOCARDIAL INFARCTION , PROBABLY OLD [40+ ms Q WAVE AND/OR ST/T ABNORMALITY IN II/aVF] No previous ECG available for comparison Electronically Signed On 05-27-2025 10:35:58 CDT by César Wang M.D.
--- OUTSIDE RECORDS SUMMARY | 2025-05-26 21:06 | XMS_ITS | Encounter Summary ---
Author Organization [facility] Healthcare Address [address] [place] [address] Care Team Providers Care Music Copyist Name Role Phone Jairo Kirby DO Primary Care Provider Encounter Details Date Type Department Care Team (Late st Contact Info) Description 11/09/[address] [facility] Surgeon [address] [place], [place] [id number] Reji Shaver MD [address] [facility] [address] [phone] [place] [address] Social History Tobacco Use Types Packs/Day Years [...] on file Legal Sex Male 8:29 PM PATIENT CARE Gender Identity Male 10/17/2020 1:52 PM PATIENT CARE Sexual Orientation Straight 10/17/2020 1: 52 PM PATIENT CARE documented as of this encounter Plan of Treatment Not on file documented as of this encounter Visit Diagnoses Not on filedocumented in this encounter Care Teams Music Copyist Relationship Specialty Start Date End Date Jairo Kirby DO [address] [place] [address] PCP - General Family Medicine 11/13/20 documented as of this encounter
--- OUTSIDE RECORDS SUMMARY | 2025-05-26 21:06 | XMS_ITS | Clinical Summary ---
Author Organization [facility] Address [facility] [place] [address] Care Team Providers Care Real Estate Processor Name Role Phone Hazel Mancera OUTSIDE PARTS SALESMAN Primary Care Provider [phone] Social History Tobacco Use Types Packs/Day Years [...] patient's age to complete this topic Insurance [facility] Care Teams Real Estate Processor Relationship Specialty Start Date End Date Hazel Mancera NP [address] [place] [phone] PCP - General NURSE PRACTITIONER 11/22/22
--- OUTSIDE RECORDS SUMMARY | 2025-05-26 21:06 | XMS_ITS | Clinical Summary ---
Author Organization [facility] Address [address] [place] [address] Care Team Providers Care Manager Social Work Name Role Phone Jairo Kirby DO Primary [...] 11/12/19 25 Active blood-glucose,re ceiver,cont (Dexcom G7 Yard Coupler) [facility] Device continuously To continuously monitor blood [...] HOURS 02/23/20 25 Active [facility] M[facility] 03/29/20 25 Active OneTouch Delica Plus Lancet 33 gauge [facility] 03/29/20 25 Active baclofen (LIORESAL) 5 mg [...] shoulder 05/08/2025 Type 2 superior labral anter tky-px-genobcrzp (SLAP) tear of shoulder 05/08/2025 UTI (urinary tract infection) 05/08/2025 Severe obesity 10/10/2024 Hyperthyroidism 10/10/2024 Assessment & Plan (10/10/2024 2:59 PM PET SITTING): This is a chronic condition which is [...] am Repeat TSH in 2 months at [facility]. Prescription sent to hospital lab Hyperlipidemia associated with type 2 diabetes zehra jiménez 12/02/2023 Assessment & Plan (10/10/2024 3:01 PM PET SITTING): This is a chronic condition which is [...] 09/01/2023 Assessment & Plan (10/10/2024 3:06 PM PET SITTING): This is a chronic condition which is [...] therapy Assessment & Plan (09/01/2023 10:46 AM PET SITTING): This is a chronic condition which is [...] . Assessment & Plan (10/10/2024 3:04 PM PET SITTING): This is a chronic condition which is [...] . Assessment & Plan (09/01/2023 11:03 AM PET SITTING): This is a chronic condition which is [...] hyperglycemia Assessment & Plan (10/10/2024 3:02 PM PET SITTING): Continuous glucose monitor (cgm) applied from 09/27/2024 [...] of blood sugar. Reports ongoing issues with [employer]style Cheryl 3 staying on and being accurate Has contacted the company directly and had several replacement Interpretation of data- average glucose 120, in target range 95%, 0 hypoglycemia, 5% hyperglycemia Assessment & Plan (09/01/2023 11:04 AM PET SITTING): Continuous glucose monitor (cgm) applied from 08/19/2023 to 09/01/2023 This device was placed for monitor and treatment of blood sugar. Interpretation of data- average glucose 147, in target range 86%, 0 hypoglycemia, 14% hyperglycemia Cochlear implant in place 05/30/2020 Assessment & Plan (05/30/2020 12:07 PM CDT): Left otalgia after CI/labyrinthectomy. No obvious infection but very tender over brewing technician/stimulator, no signs of meningitis or middle ear infection. Augmentin one week. RTC for re-evaluation if not improving. He is also meeting with Arlen Gore for CI check today. Sensorineural hearing loss (SNHL) of both ears 0 01/29/2020 Overview (01/29/2020): Added automatically from request for surgery [id number] Migraine with aura and witho ut status migrainosus, not intractable 09/06/2019 Hypertension associated with type 2 diabetes mali litus 09/06/2019 Assessment & Plan (10/10/2024 3:01 PM PET SITTING): This is a chronic condition which is [...] B/P Assessment & Plan (09/01/2023 11:00 AM PET SITTING): This is a chronic condition which is [...] 09/06/2019 Assessment & Plan (10/10/2024 3:01 PM PET SITTING): This is a chronic condition which continues [...] exercise Assessment & Plan (09/01/2023 10:59 AM PET SITTING): This is a chronic condition which continues [...] (01/29/2020): Added automatically from request for surgery [id number] Chronic seromucinous otitis media, left 07/09/2019 08/26/2022 Sensorineural hearing loss of both ears 08/18/2018 11/19/2024 Mixed hearing loss, bilateral 08/18/2018 05/08/2025 Assessment & Plan (12/14/2019 2:22 PM CDT): Right middle ear effusion- ear tube placed. Left ear Meniere's disease- he is planning a left labyrinthectomy and cochlear implant in the future with Dr. Anguiano. Encounters Date Type Department Care Team Description 05/14/2025 Telephone [facility] Medicine Otolaryngology [address] [place] [address] Bryan Gilma, 05/09/2025 7:47 AM CDT - 05/09/2025 11:59 PM CDT Hospital Encounter [facility] [address] [facility] [address] [place] [address] Tam Hsu MD Lumbar radiculopathy (Primary Dx); Neuroforaminal stenosis of lumbar spine; Spinal stenosis of lumbar region, unspecified whether neurogenic claudication present; Impaired functional mobility, balance, gait, and endurance; Chronic pain syndrome Discharge Disposition: Discharge to home or self care 05/08/2025 10:00 AM CDT Office Visit [facility]) - [facility] Medicine ENT [address] [facility] 11th [place] [address] [place] [address] Alon Anguiano MD Cochlear implant in place (Primary Dx); Sensorineural hearing loss (SNHL) of both ears; Meniere's disease of both ears 05/08/2025 Orders Only [facility] Otolaryngology [address] [place] [phone] Ruth Black CMA 05/06/2025 Telephone [facility] [address] [facility] [address] [place] [address] Tam Hsu MD PMC Preprocedure 04/11/2025 4:00 PM CDT Office Visit [facility] Diabetes Endocrine Care at [address] [place] [address] Arlen Welsh, RUBEN Type 2 diabetes mellitus with hypoglycemia without coma, with long-term current use of insulin (HCC) (Primary Dx); Acquired hypothyroidism; Hyperthyroidism; Hypertension associated with type 2 diabetes mellitus (HCC); Hyperlipidemia associated with type 2 diabetes mellitus (HCC); Dexcom 7 continuous glucose monitoring device; Omnipod dash Insulin pump in place 04/10/2025 12:00 PM CDT Clinical Support [facility] Neuro Psychology [address] [facility] [address] [place] [phone] Emelina Avila, PhD Memory problem 04/01/2025 2:30 PM CDT Procedure visit [facility] Otolaryngology [address] [facility] 11th [place] [address] [place] [address] Colt Crowe Au.D. Sensorineural hearing loss, bilateral (Primary Dx); Encounter for adjustment and management of cochlear device 04/01/2025 8:05 AM CDT - 04/01/2025 11:59 PM CDT Hospital Encounter [facility] [address] [facility] [address] [place] [address] Reggie Ta NP Lumbar radiculopathy (Primary Dx); Sacroiliitis Discharge Disposition: Discharge to home or self care 03/15/2025 2:03 PM CDT - 03/15/2025 11:59 PM CDT Hospital Encounter [facility] [address] [place] [address] Lumbar radiculopathy Discharge Disposition: Discharge to home or self care 03/14/2025 4:00 PM CDT Procedure visit [facility] Otolaryngology [address] [facility] [address]th [place] [address] [place] [address] Filomena Paez Au.D. Sensorineural hearing loss, bilateral (Primary Dx); Encounter for adjustment and management of cochlear device 03/12/2025 9:00 AM CDT Office Visit [facility] General Neurology [address] [facility] 6th [address] [place] [phone] Edie Jung PA Vestibular migraine (Primary Dx); Memory problem 02/25/2025 2:00 PM CDT Office Visit [facility] Pain Management [address] [facility] [address] [place] [address] Maricruz Greer, PhD Other chronic [...] on file Legal Sex Male 8:29 PM PET SITTING Gender Identity Male 10/17/2020 1:52 PM PET SITTING Sexual Orientation Straight 10/17/2020 1: 52 PM PET SITTING Obstetrics History Last Filed Vital Signs Vital [...] as needed Medical Devices Implanted Type Area Wind Project Manager Device Identifier Shelf Expiration Date Model / Serial / Lot [employer] Chelle 9.5mm 1.14mm 12mm Soft Ear T Flange Grommet Tube [id number] - [id number] Implanted:Qty : 1 on 07/26/2022 by Alon Anguiano MD at [facility] Tube Right: Cochlea [employer] Inc [id number] 01/26/2030 [id number] / / [id number] [employer] Hires Ultra Hifocus 3d Mid Gaby Electrode Implant Cochlear Ci-1601-04 - [id number] - [id number] Implanted:Qty : 1 on 07/26/2022 by Alon Anguiano MD at [facility] Medicine Left: Cochlea [employer] [id number] 09/18/2024 CI-1601-04 / [id number] / Explanted Type Area Wind Project Manager Device Identifier Shelf Expiration Date Model / Serial / Lot [employer] Ci-1601-04 Hires Ultra Hifocus 3d Mid Gaby Electrode Implant Cochlear - [id number] - [id number] Implanted:Qty : 1 on 02/15/2020 by Alon Anguiano MD at [facility] Explanted:Qty : 1 on 07/26/2022 at [facility] Advanced Medicine Left: Cochlea [employer] [id number] 12/17/2022 CI-1601-0 4 / [id number] / Procedures Procedure Name Priority Date/Time Associated [...] Lumbar radiculopathy EGFR Routine 11/19/2024 9:15 AM PET SITTING Fibromyalgia Polyarthritis LIPID PANEL Routine 10/10/2024 2:56 PM PET SITTING Type 2 diabetes mellitus with hypoglycemia without coma, with long-term current use of insulin (HCC) ALBUMIN CREATININE RATIO, URINE Routine 10/10/2024 2:56 PM PET SITTING Hyperlipidemia associated with type 2 diabetes mellitus (HCC) DIABETIC EYE EXAM Routine 01/10/2023 from Last 3 Months or Most Recently Relevant to Health Maintenance Results * Imaging Lumbar/Sacral Selective Nerve Root INJ (TFE) Bilateral (82057) (05/09/2025 8:49 AM CDT) Narrative [facility] - 05/09/2025 8:49 AM CDT The images from this study are not interpreted by Radiology. Please refer to the physician's procedure / OR operative note. Reggie Ta COSMETOLOGY EDUCATOR IMG PAIN MGMT PROCEDURE S Final Result Performing Organization Address City/[facility]/ZIP Co de Phone Number [facility] * TSH (2025) Scribed TSH 0.74 0.47 - 4.68 mcU/mL EXTERNAL LAB Blood 2025 Historical Provider MD LAB BLOOD ORDERABLES Milagros l Result Performing Organization Address City/[facility]/ZIP Co de Phone Number EXTERNAL LAB * POCT hemoglobin A1c (04/11/2025 3:46 PM CDT) Hemoglobin A1C, POC 4.7 4.0 - 5.6 % Blood 04/11/2025 3:46 PM CDT Arlen Welsh COSMETOLOGY EDUCATOR POINT OF CARE TEST ORDERABLES F inal [...] signed by: Daniel Rader MD Reggie Ta COSMETOLOGY EDUCATOR IMG MRI PROCEDURES Milagros l Result * eGFR (11/19/2024 9:15 AM PET SITTING) eGFR >90 >=60 mL/min/1. 73 m2 Comment: [...] last reviewed 2021. Blood 11/19/2024 9:15 AM PET SITTING 11/19/2024 9:47 AM PET SITTING Irena Mayer COSMETOLOGY EDUCATOR LAB BLOOD ORDERABLES Fi nal Result Performing Organization Address City/[facility]/ZIP Co de Phone Number [facility] [address] [facility] [place] [address] * Albumin Creatinine Ratio, Urine (10/10/2024 2:56 PM PET SITTING) Albumin Ur 18.2 mg/L Comment: Interpretive Data No reference range established. Current interpretive data was last revised 2019. Creatinine Ur 127.3 mg/dL HARRY Comment: Interpretive Data No reference range established. Current interpretive data was last revised 2019. Albumin Creatinine Ratio, Ur 14 1 - 29 mg/g HARRY Urine 10/10/2024 2:56 PM PET SITTING 10/10/2024 9:12 PM PET SITTING Arlen Welsh COSMETOLOGY EDUCATOR LAB URINE ORDERABLES Final Resu lt [facility]Y [address] [address] [facility] [place] [address] * Lipid panel (10/10/2024 2:56 PM PET SITTING) Cholesterol 171 30 - 199 mg/dL Comment: [...] ratio 3 HARRY Blood 10/10/2024 2:56 PM PET SITTING 10/10/2024 9:12 PM PET SITTING Arlen Welsh NP LAB BLOOD ORDERABLES Final Resu lt [facility] [address] [address] Department [place] [address] * Diabetic Eye Exam (01/10/2023) us Historical Provider HEALTH MAINTENANCE Final Result from Last 3 Months or Most Recently Relevant to Health Maintenance Insurance [facility] MEDICARE ADVANTAGE MEDICARE ADVANTAGE MEDICARE ADVANTAGE Advance Directives For more information, please contact: [phone] * Full Code (Latest Code Status on File) Date Activated Date Inactivated Comments 02/15/2020 3:21 PM 02/18/2020 4:01 PM Care Teams Manager Social Work Relationship Specialty Start Date End Date Jairo Kirby DO [address] [place] [address] PCP - General Family Medicine 11/13/20
[2025-05-26] MEDS: SODIUM CHLORIDE 0.9% IV 1,000 ML 999 ML IV CONT (21:30)
[2025-05-26] MEDS: ONDANSETRON INJ 4 MG/2 ML VIAL IV PUSH (21:30)
--- NOTE | 2025-05-26 21:42 | PC.NURSE ---
PATIENT FINISHED WITH BEDSIDE COMMODE. RETURNED TO STRETCHER. CONTENTS OF COMMODE DISCARDED. BROUGHT BACK TO THE ROOM. CALL LIGHT IN REACH
--- NOTE | 2025-05-26 22:08 | PC.NURSE ---
RESTING ON STRETCHER. AT THE BEDSIDE. NO NEEDS VOICED. CALL LIGHT IN REACH
[2025-05-26 22:15] LABS: Hematocrit 45.6 % (40.0-54.0); Hemoglobin 15.7 g/dL (14.0-18.0); Immature Granulocyte Percent A 0.4 % (0.0-0.0); Lymphocytes Absolute Auto 0.55 K/mm3 (1.10-4.50); Mean Corpuscular HGB Conc 34.4 g/dL (32-36); Mean Corpuscular Hemoglobin 29.3 pg (27.0-31.0); Mean Corpuscular Volume 85.1 fL (78.0-102.0); Nucleated Red Blood Cells Absolute Auto 0.00 K/mm3 (0.00-0.00); Nucleated Red Blood Cells Perc 0.0 % (0-0.0); Platelet Count Result 201 K/mm3 (150-420); Red Blood Count 5.36 M/mm3 (4.70-6.10); White Blood Count 16.1 K/mm3 (4.8-10.8)
[2025-05-26 22:22] LABS: Alanine Aminotransferase 27 U/L (6-50); Albumin Level 4.9 g/dL (3.5-5.1); Alkaline Phosphatase 119 U/L (38-126); Anion Gap 14 mmol/L (4-12); Aspartate Amino Transferase 33 U/L (17-59); Bilirubin,Total 1.2 mg/dL (0.2-1.3); Blood Urea Nitrogen 30 mg/dL (9-20); Calcium 10.0 mg/dL (8.4-10.2); Carbon Dioxide 21 mmol/L (22-30); Chloride 105 mmol/L (98-107); Estimated CRCL calculation 74 ml/min; Estimated Glomerular Filt Rate 55; Glucose 126 mg/dL (65-110); Lipase 34 U/L (23-300); Osmolality Calculated 298 mOsm/kg (285-295); Potassium 4.6 mmol/L (3.4-5.0); Sodium 140 mmol/L (137-145); Total Protein 7.9 g/dL (6.3-8.2)
[2025-05-26 22:34] LABS: Troponin I < 0.012 ng/mL (0.000-0.034)
[2025-05-26 22:45] LABS: NT Pro B Type Natriuretic Pept 57 pg/mL (19.9-100)
--- NOTE | 2025-05-26 23:00 | PC.NURSE ---
RESTING QUIETLY ON STRETCHER. AT HIS SIDE. NO NEEDS VOICED AT THIS TIME. CALL LIGHT IN REACH
--- NOTE | 2025-05-27 00:04 | PC.NURSE ---
PATIENT CURRENTLY USING URINAL AT THIS TIME
--- NOTE | 2025-05-27 00:10 | PC.NURSE ---
DR KELLY AT THE BEDSIDE
[2025-05-27 00:17] VITALS: BP 140/97; PULSE 86; RESP 16; O2SAT 98
--- NOTE | 2025-05-27 00:18 | PC.NURSE ---
DR KELLY AT THE BEDSIDE WITH DISCHARGE INSTRUCTIONS
== END 2025-05-27 00:19 | disposition home or self-care (01) ==
PROVIDERS: Emergency Provider Family Medicine; PCP Family Medicine
DX: K52.9 Noninfective gastroenteritis and colitis, unspecified (principal); E11.9 Type 2 diabetes mellitus without complications; I10 Essential (primary) hypertension
CPT/HCPCS: 36415; 80053; 83605; 83690; 83880; 84484; 85025; 93005; 96361; 96374; 99284; J2405; J7030

== ENCOUNTER 2025-05-30 10:04 | Outpatient (CLI) | payer MEDICARE, SELFPAY ==
[2025-05-30 10:47] LABS: Alanine Aminotransferase 22 U/L (6-50); Albumin Level 4.4 g/dL (3.5-5.1); Alkaline Phosphatase 68 U/L (38-126); Anion Gap 9 mmol/L (4-12); Aspartate Amino Transferase 27 U/L (17-59); Bilirubin,Total 0.6 mg/dL (0.2-1.3); Blood Urea Nitrogen 14 mg/dL (9-20); Calcium 9.4 mg/dL (8.4-10.2); Carbon Dioxide 30 mmol/L (22-30); Chloride 103 mmol/L (98-107); Estimated Glomerular Filt Rate > 60; Glucose 99 mg/dL (65-110); Osmolality Calculated 294 mOsm/kg (285-295); Potassium 4.6 mmol/L (3.4-5.0); Sodium 142 mmol/L (137-145); Total Protein 6.7 g/dL (6.3-8.2)
== END 2025-05-30 10:05 | disposition home or self-care (01) ==
LOC: CHSLAB 10:05
PROVIDERS: PCP Family Medicine; Visit Provider Family Medicine
DX: I10 Essential (primary) hypertension (principal)
CPT/HCPCS: 36415; 80053

== ENCOUNTER 2025-06-10 07:49 | Outpatient (CLI) | payer MEDICARE, SELFPAY ==
--- OUTSIDE RECORDS SUMMARY | 2025-05-01 10:07 | XMS_ITS | Clinical Summary ---
Author Organization [facility] Address [facility] [place] [address] Care Team Providers Care Valet Name Role Phone Hazel Mancera DIRECTOR OF STUDENT FINANCIAL AID Primary Care Provider [phone] Social History Tobacco Use Types Packs/Day Years [...] patient's age to complete this topic Insurance [facility] Care Teams Valet Relationship Specialty Start Date End Date Hazel Mancera NP [address] [place] [phone] PCP - General NURSE PRACTITIONER 11/22/22
--- OUTSIDE RECORDS SUMMARY | 2025-05-01 10:07 | XMS_ITS | Encounter Summary ---
Author Organization [facility] Address [address] [place] [address] Care Team Providers Care Artificial Inseminator Name Role Phone Jairo Kirby DO Primary Care Provider Encounter Details Date Type Department Care Team (Late st Contact Info) Description 11/09/2023 Documentation [facility] Surgeon [address] [place], [place] [id number] Reji Shaver MD [address] [facility] [id number] [place] [address] Social History Tobacco Use Types Packs/Day Years [...] on file Legal Sex Male 8:29 PM AUTOMOBILE SERVICE STATION ATTENDANT Gender Identity Male 10/17/2020 1:52 PM AUTOMOBILE SERVICE STATION ATTENDANT Sexual Orientation Straight 10/17/2020 1: 52 PM AUTOMOBILE SERVICE STATION ATTENDANT documented as of this encounter Plan of Treatment Not on file documented as of this encounter Visit Diagnoses Not on filedocumented in this encounter Care Teams Artificial Inseminator Relationship Specialty Start Date End Date Jairo Kirby DO [address] [place] [address] PCP - General Family Medicine 11/13/20 documented as of this encounter
--- OUTSIDE RECORDS SUMMARY | 2025-05-01 10:07 | XMS_ITS | Clinical Summary ---
Author Organization [facility] Address [address] [place] [address] Phone Care Team Providers Care Process Technician Name Role Phone Sanaz Zelaya MD Primary Care Provider Allergies Active Allergy Reactions [...] of Treatment Not on file Care Teams Process Technician Relationship Specialty Start Date End Date Sanaz Zelaya MD [address] [place] [address] PCP - General General Surgery 10/24/15
--- OUTSIDE RECORDS SUMMARY | 2025-05-01 10:07 | XMS_ITS | Clinical Summary ---
Author Organization [facility] Address [address] [place] [address] Care Team Providers Care Human Resources Trainee Name Role Phone Jairo Kirby DO Primary Care Provider Allergies Active Allergy Reactions Criticality Noted Date Comments Clarithromycin Anaphylaxis,Hives,Vomiting High Medications losartan (COZAAR) 25 mg tabletIndications :hypertension,50 mg in AM Take 2 tablets (50 mg total) by mouth every morning 1 07/12/20 19 Active dicyclomine (BENTYL) 20 mg tabletIndications :Irritable Bowel Syndrome Take 1 tablet (20 mg total) by mouth every 6 (six) hours as needed 11/01/19 20 Active furosemide (LASIX) 20 mg tabletIndications :hypertension Take 1 tablet (20 mg total) by mouth every morning 02/08/20 20 Active famotidine (PEPCID) 20 mg tabletIndications :gastroesophageal reflux disease Take 1 tablet (20 mg total) by mouth every morning Active Dexilant 60 mg capsuleIndication s:Treatment of Non-Bleeding Gastric Disorder Take 1 capsule [...] 2 07/05/20 23 Active Baqsimi 3 mg/actuation spray,non-aerosol Indications:patie nt with diabetes mellitus at risk of hypoglycemia [...] DAYS 30 each 3 05/30/20 24 Active galcanezumab-gnlm (Emgality Pen) 120 mg/mL pen injectorIndicatio ns:Migraine without aura and without status migrainosus, not [...] 10/01/19 25 Active methIMAzole (TAPAZOLE) 10 mg tabletIndications :Hyperthyroidism Take 1 tablet (10 mg total) by mouth daily For newly diagnosed hyperthyroidism. 30 tablet 11 10/02/19 25 026 Active Dexcom G7 Sensor device 1 Device continuously . Change every 10 days. E11.65 10 each 3 11/12/19 25 Active tirzepatide (Mounjaro) 7.5 mg/0.5 mL pen injector injectionIndicati ons:type 2 diabetes mellitus Inject 0.5 mL (7.5 mg total) under the skin every 7 days And we will titrate as needed. E11.9 2 mL 11 01/11/20 25 Active blood-glucose,rec eiver,cont (Dexcom G7 Appeals Analyst) [facility] [place] 1 Device continuously To continuously monitor blood sugar e10.65 1 each 1 01/12/20 25 Active rosuvastatin (CRESTOR) 20 mg tablet Take 1 tablet (20 mg total) by mouth nightly 90 tablet 3 02/29/20 25 Active SUMAtriptan (IMITREX) 100 mg tabletIndications :Migraine Take 1 tablet (100 mg total) by [...] daily 400 each 3 03/29/20 25 Active neomycin-polymyxi n-HC (CORTISPORIN) 3.5-10,000-1 mg/mL-unit/mL-% otic suspension INSTILL 4 DROP INTO EACH EAR EVERY 8 HOURS 02/23/20 25 Active OneTouch Ultra2 Meter [facility] 03/29/20 25 Active OneTouch Delica Plus Lancet 33 gauge [facility] [place] 03/29/20 25 Active baclofen (LIORESAL) 5 mg tabletIndications :Lumbar radiculopathy Take 1 tablet (5 mg total) by mouth 2 (two) times a day 60 tablet 1 04/01/20 25 025 Active amLODIPine (NORVASC) 10 mg tablet Take 1 tablet (10 mg total) by mouth daily 04/02/20 25 Active triamcinolone (KENALOG) 0.1 % ointment APPLY TO AFFECTED AREA TWICE A DAY NEEDED FOR ITCHING DO NOT USE LONGER THAN 2 WEEKS 04/02/20 25 Active Active Problems Problem Noted Date Diagnosed Date Severe obesity 10/10/2024 Hyperthyroidism 10/10/2024 Assessment & Plan (10/10/2024 2:59 PM TEA BAG MACHINE TENDER): This is a chronic condition which is [...] am Repeat TSH in 2 months at [facility]. Prescription sent to hospital lab Hyperlipidemia associated with type 2 diabetes zehra jiménez 12/02/2023 Assessment & Plan (10/10/2024 3:01 PM TEA BAG MACHINE TENDER): This is a chronic condition which is [...] 09/01/2023 Assessment & Plan (10/10/2024 3:06 PM TEA BAG MACHINE TENDER): This is a chronic condition which is [...] therapy Assessment & Plan (09/01/2023 10:46 AM TEA BAG MACHINE TENDER): This is a chronic condition which is [...] . Assessment & Plan (10/10/2024 3:04 PM TEA BAG MACHINE TENDER): This is a chronic condition which is [...] . Assessment & Plan (09/01/2023 11:03 AM TEA BAG MACHINE TENDER): This is a chronic condition which is [...] hyperglycemia Assessment & Plan (10/10/2024 3:02 PM TEA BAG MACHINE TENDER): Continuous glucose monitor (cgm) applied from 09/27/2024 [...] of blood sugar. Reports ongoing issues with NovaTorquest[employer] Cheryl 3 staying on and being accurate Has contacted the company directly and had several replacement Interpretation of data- average glucose 120, in target range 95%, 0 hypoglycemia, 5% hyperglycemia Assessment & Plan (09/01/2023 11:04 AM TEA BAG MACHINE TENDER): Continuous glucose monitor (cgm) applied from 08/19/2023 to 09/01/2023 This device was placed for monitor and treatment of blood sugar. Interpretation of data- average glucose 147, in target range 86%, 0 hypoglycemia, 14% hyperglycemia Cochlear implant in place 05/30/2020 Assessment & Plan (05/30/2020 12:07 PM CDT): Left otalgia after CI/labyrinthectomy. No obvious infection but very tender over printing plate setter/stimulator, no signs of meningitis or middle ear infection. Augmentin one week. RTC for re-evaluation if not improving. He is also meeting with Arlen Gore for CI check today. Sensorineural hearing loss (SNHL) of both ears 0 01/29/2020 Overview (01/29/2020): Added automatically from request for surgery [id number] Migraine with aura and witho ut status migrainosus, not intractable 09/06/2019 Hypertension associated with type 2 diabetes mali litus 09/06/2019 Assessment & Plan (10/10/2024 3:01 PM TEA BAG MACHINE TENDER): This is a chronic condition which is [...] B/P Assessment & Plan (09/01/2023 11:00 AM TEA BAG MACHINE TENDER): This is a chronic condition which is [...] 09/06/2019 Assessment & Plan (10/10/2024 3:01 PM TEA BAG MACHINE TENDER): This is a chronic condition which continues [...] exercise Assessment & Plan (09/01/2023 10:59 AM TEA BAG MACHINE TENDER): This is a chronic condition which continues [...] (01/29/2020): Added automatically from request for surgery [id number] Chronic seromucinous otitis media, left 07/09/2019 08/26/2022 Sensorineural hearing loss of both ears 08/18/2018 11/19/2024 Encounters Date Type Department Care Team Description 04/11/2025 4:00 PM CDT Office Visit [facility] Diabetes Endocrine Care at [address] [phone] Arlen Welsh, RUBEN Type 2 diabetes mellitus with hypoglycemia without coma, with long-term current use of insulin (HCC) (Primary Dx); Acquired hypothyroidism; Hyperthyroidism; Hypertension associated with type 2 diabetes mellitus (HCC); Hyperlipidemia associated with type 2 diabetes mellitus (HCC); Dexcom 7 continuous glucose monitoring device; Omnipod dash Insulin pump in place 04/10/2025 12:00 PM CDT Clinical Support [facility] Neuro Psychology [address] [facility] [address] [place] [phone] Emelina Avila, PhD Memory problem 04/01/2025 2:30 PM CDT Procedure visit [facility] Otolaryngology [address] [facility] [address]th [place] [address] [place] [address] Colt Crowe Au.D. Sensorineural hearing loss, bilateral (Primary Dx); Encounter for adjustment and management of cochlear device 04/01/2025 8:05 AM CDT - 04/01/2025 11:59 PM CDT Hospital Encounter [facility] [address] [facility] [address] [place] [address] Reggie Ta NP Lumbar radiculopathy (Primary Dx); Sacroiliitis Discharge Disposition: Discharge to home or self care 03/15/2025 2:03 PM CDT - 03/15/2025 11:59 PM CDT Hospital Encounter [facility] [address] [place] [address] Lumbar radiculopathy Discharge Disposition: Discharge to home or self care 03/14/2025 4:00 PM CDT Procedure visit [facility] Otolaryngology [address] [facility] 11[address] [place] [address] [place] [address] Filomena Paez Au.D. Sensorineural hearing loss, bilateral (Primary Dx); Encounter for adjustment and management of cochlear device 03/12/2025 9:00 AM CDT Office Visit [facility] General Neurology [address] [facility] 6[address] [place] [address] Edie Jung PA Vestibular migraine (Primary Dx); Memory problem 02/25/2025 2:00 PM CDT Office Visit [facility] Pain Management [address] [facility] [address] [place] [address] Maricruz Greer, PhD Other chronic pain (Primary Dx); Other specified depressive disorder; PTSD (post-traumatic stress disorder); Fibromyalgia; Meniere's disease of right ear from Last 3 Months Immunizations Immunization Administration [...] (irritable bowel syndrome) Type 2 diabetes mellitus Vertigo Fatty liver GERD (gastroesophageal reflu x disease) Motion sickness Tinnitus 1989 Hearing aid worn 02/14/2020 Thyroid disease Hyperthyroidism [...] on file Legal Sex Male 8:29 PM TEA BAG MACHINE TENDER Gender Identity Male 10/17/2020 1:52 PM TEA BAG MACHINE TENDER Sexual Orientation Straight 10/17/2020 1: 52 PM TEA BAG MACHINE TENDER Obstetrics History Last Filed Vital Signs Vital [...] Chronic Care Management Worsening( 8:31 AM CDT) Tanya lange, Leatha Perez, RN Note: Problem: Chronic Pain Goals: 1. Minimize further functional decline 2. Maximize quality of life 3. Control pain Strategies: - Activity/exercise program recommendation - Conservative stepwise pain medicine strategy with multi-disciplinary approach - Recommend healthy lifestyle strategies and compensatory methods as needed Medical Devices Implanted Type Area Supervisor Instrument Repair Device Identifier Shelf Expiration Date Model / Serial / Lot Med[employer]onic Inc Chelle 9.5mm 1.14mm 12mm Soft Ear T Flange Grommet Tube [id number] - [id number] Implanted:Qty : 1 on 07/26/2022 by Alon Anguiano MD at [facility] Tube Right: Cochlea Med[employer]onic Inc [id number] 01/26/2030 [id number] / / [id number] [employer] Elias Borges Urzeda Ultra Hifocus 3d Mid Gaby Electrode Implant Cochlear Ci-1601-04 - [id number] - [id number] Implanted:Qty : 1 on 07/26/2022 by Alon Anguiano MD at [facility] Medicine Left: Cochlea [employer] [id number] 09/18/2024 CI-1601-04 / [id number] / Explanted Type Area Supervisor Instrument Repair Device Identifier Shelf Expiration Date Model / Serial / Lot [employer] Ci-1601-04 Hires Ultra Hifocus 3d Mid Gaby Electrode Implant Cochlear - [id number] - [id number] Implanted:Qty : 1 on 02/15/2020 by Alon Anguiano MD at [facility] Medicine Explanted:Qty : 1 on 07/26/2022 at [facility] Left: Cochlea [employer] [id number] 12/17/2022 CI-1601-0 [id number] / Procedures Procedure Name Priority Date/Time Associated Diagnosis Comments TSH Routine 2025 POCT HEMOGLOBIN A1C Routine 04/11/2025 3:46 PM [...] Lumbar radiculopathy EGFR Routine 11/19/2024 9:15 AM TEA BAG MACHINE TENDER Fibromyalgia Polyarthritis LIPID PANEL Routine 10/10/2024 2:56 PM TEA BAG MACHINE TENDER Type 2 diabetes mellitus with hypoglycemia without coma, with long-term current use of insulin (HCC) ALBUMIN CREATININE RATIO, URINE Routine 10/10/2024 2:56 PM TEA BAG MACHINE TENDER Hyperlipidemia associated with type 2 diabetes mellitus (HCC) DIABETIC EYE EXAM Routine 01/10/2023 from Last 3 Months or Most Recently Relevant to Health Maintenance Results * TSH (2025) Scribed TSH 0.74 0.47 - 4.68 mcU/mL EXTERNAL LAB Blood 2025 us Historical Provider LAB BLOOD ORDERABLES Milagros l Result EXTERNAL LAB * POCT hemoglobin A1c (04/11/2025 3:46 PM CDT) Hemoglobin A1C, POC 4.7 4.0 - 5.6 % Blood 04/11/2025 3:46 PM CDT Arlen Welsh PUBLIC POLICY ASSOCIATE POINT OF CARE TEST ORDERABLES F inal Result * POCT glucose (04/11/2025 3:44 PM CDT) Glucose Blood, POC 107 Normal Fasting 70 - 100, Random <200 mg/dL Blood 04/11/2025 3:44 PM CDT Arlen Welsh PUBLIC POLICY ASSOCIATE POINT OF CARE TEST ORDERABLES F inal [...] signed by: Daniel Rader MD Reggie Ta PUBLIC POLICY ASSOCIATE IMG MRI PROCEDURES Milagros l Result * eGFR (11/19/2024 9:15 AM TEA BAG MACHINE TENDER) eGFR >90 >=60 mL/min/1. 73 m2 Comment: [...] last reviewed 2021. Blood 11/19/2024 9:15 AM TEA BAG MACHINE TENDER 11/19/2024 9:47 AM TEA BAG MACHINE TENDER Irena Mayer PUBLIC POLICY ASSOCIATE LAB BLOOD ORDERABLES Fi nal Result Performing Organization Address [facility] Co de Phone Number HARRY [facility] [address] [facility]. [facility] [place] [address] * Albumin Creatinine Ratio, Urine (10/10/2024 2:56 PM TEA BAG MACHINE TENDER) Albumin Ur 18.2 mg/L Comment: Interpretive Data No reference range established. Current interpretive data was last revised 2019. Creatinine Ur 127.3 mg/dL HARRY Comment: Interpretive Data No reference range established. Current interpretive data was last revised 2019. Albumin Creatinine Ratio, Ur 14 1 - 29 mg/g HARRY Urine 10/10/2024 2:56 PM TEA BAG MACHINE TENDER 10/10/2024 9:12 PM TEA BAG MACHINE TENDER Arlen Welsh PUBLIC POLICY ASSOCIATE LAB URINE ORDERABLES Final Resu lt Performing Organization Address [facility] de Phone Number HARRY [address] [facility] [place] [address] * Lipid panel (10/10/2024 2:56 PM TEA BAG MACHINE TENDER) Cholesterol 171 30 - 199 mg/dL Comment: [...] NCEP Expert Panel. Circulation 2004;110:227 3. Sean Rajput al. AMRIT Cardiol. 2020 January 17;5(5):540-548. doi: [...] 3 HARRY HARTMAN Blood 10/10/2024 2:56 PM TEA BAG MACHINE TENDER 10/10/2024 9:12 PM TEA BAG MACHINE TENDER Arlen Welsh NP LAB BLOOD ORDERABLES Final Resu lt HARRY HARTMAN [address] [address] [place] [address] * Diabetic Eye Exam (01/10/2023) Historical Provider HEALTH MAINTENANCE Final Result from Last 3 Months or Most Recently Relevant to Health Maintenance Insurance [facility] MEDICARE ADVANTAGE [facility] Address: [facility] [address] [place] [address] [facility] MEDICARE ADVANTAGE [facility] Address: [address] [address] [place] [address] [facility] MEDICARE ADVANTAGE [facility] Address: [address] [address] [place] [address] Advance Directives For more information, please contact: [phone] * Full Code (Latest Code Status on File) Date Activated Date Inactivated Comments 02/15/2020 3:21 PM 02/18/2020 4:01 PM Care Teams Human Resources Trainee Relationship Specialty Start Date End Date Jairo Kirby DO [address] [place] [address] PCP - General Family Medicine 11/13/20
--- OUTSIDE RECORDS SUMMARY | 2025-06-10 08:16 | XMS_ITS | Clinical Summary ---
Author Organization [facility] Address Formerly [facility] [place] [address] Care Team Providers Care Scribing Machine Operator Name Role Phone Hazel Mancera SECURITY EXPERT Primary Care Provider [phone] Social History Tobacco Use Types Packs/Day Years [...] 11/15/2013 06/12/2013, 05/15/2013 COVID-19 Vaccine ( season) 2025 06/19/2022, 06/27/2021, 12/22/2020, Additional history exists Meningococcal [...] patient's age to complete this topic Insurance [facility] Care Teams Scribing Machine Operator Relationship Specialty Start Date End Date Hazel Mancera NP [address] [place] [phone] PCP - General NURSE PRACTITIONER 11/22/22
--- OUTSIDE RECORDS SUMMARY | 2025-06-10 08:16 | XMS_ITS | Clinical Summary ---
Author Organization [facility] Address [address] [place] [address] Care Team Providers Care Soil Conservation Technician Name Role Phone Jairo Kirby DO Primary Care Provider Allergies Active Allergy Reactions Criticality Noted Date Comments Clarithromycin Anaphylaxis,Hives,Vo miting,Other (See comments) High 05/26/2025 Medications losartan (COZAAR) 25 mg tabletIndication s:hypertension,5 0 mg in AM Take 2 tablets (50 mg total) by mouth every morning 1 019 Active dicyclomine (BENTYL) 20 mg tabletIndication s:Irritable Bowel Syndrome Take 1 tablet (20 mg total) by mouth every 6 (six) hours as needed 020 Active furosemide (LASIX) 20 mg tabletIndication s:hypertension Take 1 tablet (20 mg total) by mouth every morning 020 Active famotidine (PEPCID) 20 mg tabletIndication s:gastroesophage al reflux disease Take 1 tablet (20 mg total) by mouth every morning Active Dexilant 60 mg capsuleIndicatio ns:Treatment of Non-Bleeding Gastric Disorder Take 1 capsule (60 mg total) by mouth nightly 021 Active meclizine (ANTIVERT) 25 mg tablet Take 1 tablet (25 mg total) by mouth 3 (three) times a day as needed (Vertigo attacks) 45 tablet 023 Active prochlorperazine (COMPAZINE) 10 mg tablet Take 1 tablet (10 mg total) by mouth 3 (three) times a day as needed (nausea/migraine) 20 tablet 2 023 Active Baqsimi 3 mg/actuation spray,non-aeroso lIndications:pat ient with diabetes mellitus at risk of hypoglycemia Administer 1 spray into one nostril as needed (use for severe hypoglycemia requiring the assistance of another.) E11.65 2 each 11 024 Active TRUEplus Pen Needle 32 gauge x 5/32 needle USE TO INJECT INSULIN UP TO 4TIMES/DAY. USE FOR INSULIN PUMP FAILURE E11.65 400 each 3 024 Active insulin glargine (LANTUS) 100 unit/mL (3 mL) pen for injection Inject 25 Units under the skin daily Use for insulin pump failure. E11.65 15 mL 3 024 Active galcanezumab-gnl m (Emgality Pen) 120 mg/mL pen injectorIndicati ons:Migraine without aura and without status migrainosus, not intractable INJECT 120MG (1 PEN) UNDER THE SKIN EVERY 30 DAYS 3 mL 3 024 Active insulin lispro-aabc (LYUMJEV) 100 unit/mL vial for injection Infuse 75 units total daily dose per Omnipod dash. E11.65 70 mL 4 024 Active OXcarbazepine (TRILEPTAL) 150 mg tablet Take 1 tablet (150 mg total) by mouth daily 024 Active buPROPion XL (WELLBUTRIN XL) 300 mg 24 hr tablet 024 Active prazosin (MINIPRESS) 2 mg capsule 024 Active insulin lispro (HumaLOG, ADMELOG) 100 unit/mL pen for injection INJECT 9 UNITS SUBCUTANEOUSLY THREE TIMES A DAY BEFORE MEALS PUMP FAILURE. 15 mL 3 025 Active methIMAzole (TAPAZOLE) 10 mg tabletIndication s:Hyperthyroidis m Take 1 tablet (10 mg total) by mouth daily For newly diagnosed hyperthyroidism. 30 tablet 11 025 2025 Active Dexcom G7 Sensor device 1 Device continuously . Change every 10 days. E11.65 10 each 3 025 Active blood-glucose,re ceiver,cont (Dexcom G7 Aoc Director Intelligence Officer) [facility] 1 Device continuously To continuously monitor blood sugar e10.65 1 each 1 025 Active rosuvastatin (CRESTOR) 20 mg tablet Take 1 tablet (20 mg total) by mouth nightly 90 tablet 3 025 Active SUMAtriptan (IMITREX) 100 mg tabletIndication s:Migraine Take 1 tablet (100 mg total) by mouth once as needed for migraine (headache) for up to 1 dose May repeat one time after 2 hours if needed. 9 tablet 5 025 Active blood-glucose meter kit Use to test glucose 4 times daily 1 kit 025 Active blood glucose diagnostic (glucose blood) strip Use to test glucose 4 times daily 400 each 3 025 Active lancets misc Use to test glucose 4 times daily 400 each 3 025 Active neomycin-polymyx in-HC (CORTISPORIN) 3.5-10,000-1 mg/mL-unit/mL-% otic suspension INSTILL 4 DROP INTO EACH EAR EVERY 8 HOURS Active OneTouch Ultra2 Meter [facility] 025 Active OneTouch Delica Plus Lancet 33 gauge [facility] 025 Active baclofen (LIORESAL) 5 mg tabletIndication s:Lumbar radiculopathy Take 1 tablet (5 mg total) by mouth 2 (two) times a day 60 tablet 1 025 Active amLODIPine (NORVASC) 10 mg tablet Take 1 tablet (10 mg total) by mouth daily 025 Active triamcinolone (KENALOG) 0.1 % ointment APPLY TO AFFECTED AREA TWICE A DAY NEEDED FOR ITCHING DO NOT USE LONGER THAN 2 WEEKS 025 Active predniSONE (DELTASONE) 10 mg tablet TAKE 6 TABS ON DAY 1, 5 ON DAY 2, 4 ON DAY 3, 3 ON DAY 4, 2 ON DAY 5, 1 ON DAY 6 025 Active predniSONE (DELTASONE) 20 mg tablet TAKE 2 TABLETS BY MOUTH DAILY FOR 3 DAYS 025 Active betahistine Take 1 capsule (8 mg total) by mouth 3 (three) times a day 90 capsule 2 025 Active tirzepatide (Mounjaro) 10 mg/0.5 mL pen injector injectionIndicat ions:type 2 diabetes mellitus Inject 0.5 mL (10 mg total) under the skin every 7 days E11.9 2 mL 11 025 Active Omnipod Dash Pods, Gen 4, cartridge CHANGE POD every THREE DAYS 30 each 3 025 Active Omnipod Dash Pods, Gen 4, cartridge CHANGE POD every THREE DAYS 30 each 3 024 2024 Discontinued Active Problems Problem Noted Date Diagnosed Date [...] shoulder 05/08/2025 Type 2 superior labral anter vkl-ck-mmqqodsku (SLAP) tear of shoulder 05/08/2025 UTI (urinary tract infection) 05/08/2025 Severe obesity 10/10/2024 Hyperthyroidism 10/10/2024 Assessment & Plan (10/10/2024 2:59 PM DRILL PRESS OPERATOR): This is a chronic condition which is [...] am Repeat TSH in 2 months at [facility]. Prescription sent to hospital lab Hyperlipidemia associated with type 2 diabetes zehra jiménez 12/02/2023 Assessment & Plan (10/10/2024 3:01 PM DRILL PRESS OPERATOR): This is a chronic condition which is [...] 09/01/2023 Assessment & Plan (10/10/2024 3:06 PM DRILL PRESS OPERATOR): This is a chronic condition which is [...] therapy Assessment & Plan (09/01/2023 10:46 AM DRILL PRESS OPERATOR): This is a chronic condition which is [...] . Assessment & Plan (10/10/2024 3:04 PM DRILL PRESS OPERATOR): This is a chronic condition which is [...] . Assessment & Plan (09/01/2023 11:03 AM DRILL PRESS OPERATOR): This is a chronic condition which is [...] hyperglycemia Assessment & Plan (10/10/2024 3:02 PM DRILL PRESS OPERATOR): Continuous glucose monitor (cgm) applied from 09/27/2024 [...] hyperglycemia Assessment & Plan (09/01/2023 11:04 AM DRILL PRESS OPERATOR): Continuous glucose monitor (cgm) applied from 08/19/2023 to 09/01/2023 This device was placed for monitor and treatment of blood sugar. Interpretation of data- average glucose 147, in target range 86%, 0 hypoglycemia, 14% hyperglycemia Cochlear implant in place 05/30/2020 Assessment & Plan (05/30/2020 12:07 PM CDT): Left otalgia after CI/labyrinthectomy. No obvious infection but very tender over fuel cell test engineer/stimulator, no signs of meningitis or middle ear infection. Augmentin one week. RTC for re-evaluation if not improving. He is also meeting with Arlen Gore for CI check today. Sensorineural hearing loss (SNHL) of both ears 0 01/29/2020 Overview (01/29/2020): Added automatically from request for surgery [id number] Migraine with aura and witho ut status migrainosus, not intractable 09/06/2019 Hypertension associated with type 2 diabetes mali litus 09/06/2019 Assessment & Plan (10/10/2024 3:01 PM DRILL PRESS OPERATOR): This is a chronic condition which is [...] B/P Assessment & Plan (09/01/2023 11:00 AM DRILL PRESS OPERATOR): This is a chronic condition which is [...] 09/06/2019 Assessment & Plan (10/10/2024 3:01 PM DRILL PRESS OPERATOR): This is a chronic condition which continues [...] exercise Assessment & Plan (09/01/2023 10:59 AM DRILL PRESS OPERATOR): This is a chronic condition which continues [...] (01/29/2020): Added automatically from request for surgery [id number] Chronic seromucinous otitis media, left 07/09/2019 08/26/2022 Sensorineural hearing loss of both ears 08/18/2018 11/19/2024 Mixed hearing loss, bilateral 08/18/2018 05/08/2025 Assessment & Plan (12/14/2019 2:22 PM CDT): Right middle ear effusion- ear tube placed. Left ear Meniere's disease- he is planning a left labyrinthectomy and cochlear implant in the future with Dr. Anguiano. Encounters Date Type Department Care Team Description 05/29/2025 9:00 AM CDT Office Visit [facility] Medicine ENT [address] [facility] [facility] [address] [place] [address] Ngoc Fofana, RUBEN Meniere's disease, unspecified laterality (Primary Dx); Sensorineural hearing loss of both ears; Bilateral otitis media with effusion; Impacted cerumen of left ear 05/14/2025 Telephone [facility] Medicine Otolaryngology [address] [place] [address] Gilma Bryan, 05/09/2025 7:47 AM CDT - 05/09/2025 11:59 PM CDT Hospital Encounter [facility] [address] [facility] [facility] [address] [place] [address] Tam Hsu MD Lumbar radiculopathy (Primary Dx); Neuroforaminal stenosis of lumbar spine; Spinal stenosis of lumbar region, unspecified whether neurogenic claudication present; Impaired functional mobility, balance, gait, and endurance; Chronic pain syndrome Discharge Disposition: Discharge to home or self care 05/08/2025 10:00 AM CDT Office Visit [facility]) - [facility] Medicine ENT [address] [facility] 11th [place] [address] [place] [address] Alon Anguiano MD Cochlear implant in place (Primary Dx); Sensorineural hearing loss (SNHL) of both ears; Meniere's disease of both ears 05/08/2025 Orders Only [facility] Otolaryngology [address], [address] [place] [address] Ruth Black CMA 05/06/2025 Telephone [facility] at [facility] [address] [place] [address] Tam Hsu MD [facility] Preprocedure 04/11/2025 4:00 PM CDT Office Visit [facility] Diabetes Endocrine Care at [address] [place] [address] Arlen Welsh, RUBEN Type 2 diabetes mellitus with hypoglycemia without coma, with long-term current use of insulin (HCC) (Primary Dx); Acquired hypothyroidism; Hyperthyroidism; Hypertension associated with type 2 diabetes mellitus (HCC); Hyperlipidemia associated with type 2 diabetes mellitus (HCC); Dexcom 7 continuous glucose monitoring device; Omnipod dash Insulin pump in place 04/10/2025 12:00 PM CDT Clinical Support [facility] Neuro Psychology [address] [place] [phone] Emelina Avila, PhD Memory problem 04/01/2025 2:30 PM CDT Procedure visit [facility] Otolaryngology [address] [facility] 11th [place] [address] [place] [address] Colt Crowe Au.D. Sensorineural hearing loss, bilateral (Primary Dx); Encounter for adjustment and management of cochlear device 04/01/2025 8:05 AM CDT - 04/01/2025 11:59 PM CDT Hospital Encounter [facility] [address] [facility] [address] [place] [address] Reggie Ta NP Lumbar radiculopathy (Primary Dx); Sacroiliitis Discharge Disposition: Discharge to home or self care 03/15/2025 2:03 PM CDT - 03/15/2025 11:59 PM CDT Hospital Encounter [facility] [address] [place] [address] Lumbar radiculopathy Discharge Disposition: Discharge to home or self care 03/14/2025 4:00 PM CDT Procedure visit [facility] Otolaryngology [address] [facility] [address] [place] [address] [place] [phone] Filomena Paez Au.D. Sensorineural hearing loss, bilateral (Primary Dx); Encounter for adjustment and management of cochlear device 03/12/2025 9:00 AM CDT Office Visit [facility] General Neurology [address] 6th [address] [place] [address] Edie Jung PA Vestibular migraine (Primary Dx); Memory problem from Last 3 Months Immunizations Immunization Administration [...] on file Legal Sex Male 8:29 PM DRILL PRESS OPERATOR Gender Identity Male 10/17/2020 1:52 PM DRILL PRESS OPERATOR Sexual Orientation Straight 10/17/2020 1: 52 PM DRILL PRESS OPERATOR Obstetrics History Last Filed Vital Signs Vital [...] 06/27/2021, 12/22/2020, 11/24/2020 Influenza Vaccine (#1) 2025 , 06/19/2022, 06/27/2021, Additional history exists Albumin Creatinine Ratio, Urine 10/10/2025 10/10/2024, 09/22/2023 Foot Exam 10/10/2025 10/10/2024, 06/2 12/2023, 12/01/2023, Additional history exists Lipid Panel 10/10/2025 [...] as needed Medical Devices Implanted Type Area Investment Banking Manager Device Identifier Shelf Expiration Date Model / Serial / Lot Medtronic Inc Chelle 9.5mm 1.14mm 12mm Soft Ear T Flange Grommet Tube [id number] - [id number] Implanted:Qty : 1 on 07/26/2022 by Alon Anguiano MD at [facility] Tube Right: Cochlea Med[employer]onic Inc [id number] 01/26/2030 [id number] / / [id number] Advanced [employer] Hires Ultra Hifocus 3d Mid Gaby Electrode Implant Cochlear Ci-1601-04 - [id number] - [id number] Implanted:Qty : 1 on 07/26/2022 by Alon Anguiano MD at [facility] Left: Cochlea [employer] [id number] 09/18/2024 CI-1601-04 / [id number] / Explanted Type Area Investment Banking Manager Device Identifier Shelf Expiration Date Model / Serial / Lot Advanced [employer]ion[employer] Ci-1601-04 Hires Ultra Hifocus 3d Mid Gaby Electrode Implant Cochlear - [id number] - [id number] Implanted:Qty : 1 on 02/15/2020 by Alon Anguiano MD at [facility] Explanted:Qty : 1 on 07/26/2022 at [facility] Left: Cochlea [employer] [id number] 12/17/2022 -1601-0 4 [id number] / Procedures Procedure Name Priority Date/Time Associated [...] Lumbar radiculopathy EGFR Routine 11/19/2024 9:15 AM DRILL PRESS OPERATOR Fibromyalgia Polyarthritis LIPID PANEL Routine 10/10/2024 2:56 PM DRILL PRESS OPERATOR Type 2 diabetes mellitus with hypoglycemia without coma, with long-term current use of insulin (HCC) ALBUMIN CREATININE RATIO, URINE Routine 10/10/2024 2:56 PM DRILL PRESS OPERATOR Hyperlipidemia associated with type 2 diabetes mellitus (HCC) DIABETIC EYE EXAM Routine 01/10/2023 from Last 3 Months or Most Recently Relevant to Health Maintenance Results * Imaging Lumbar/Sacral Selective Nerve Root INJ (TFE) Bilateral (50716) (05/09/2025 8:49 AM CDT) Narrative RAD_PACS[facility] - 05/09/2025 8:49 AM CDT The images from this study are not interpreted by Radiology. Please refer to the physician's procedure / OR operative note. Reggie Ta SPORTS COORDINATOR IMG PAIN MGMT PROCEDURE S Final Result [facility] * TSH (2025) Scribed TSH 0.74 0.47 - 4.68 mcU/mL EXTERNAL LAB Blood 2025 Historical Provider MD LAB BLOOD ORDERABLES Milagros l Result EXTERNAL LAB * POCT hemoglobin A1c (04/11/2025 3:46 PM CDT) Hemoglobin A1C, POC 4.7 4.0 - 5.6 % Blood 04/11/2025 3:46 PM CDT Arlen Welsh SPORTS COORDINATOR POINT OF CARE TEST ORDERABLES F inal Result * POCT glucose (04/11/2025 3:44 PM CDT) Glucose Blood, POC 107 Normal Fasting 70 - 100, Random <200 mg/dL Blood 04/11/2025 3:44 PM CDT Arlen Welsh SPORTS COORDINATOR POINT OF CARE TEST ORDERABLES F inal [...] signed by: Daniel Rader MD Reggie Ta [facility] MRI PROCEDURES Milagros l Result * eGFR (11/19/2024 9:15 AM DRILL PRESS OPERATOR) eGFR >90 >=60 mL/min/1. 73 m2 Comment: [...] last reviewed 2021. Blood 11/19/2024 9:15 AM DRILL PRESS OPERATOR 11/19/2024 9:47 AM DRILL PRESS OPERATOR Irena Mayer SPORTS COORDINATOR LAB BLOOD ORDERABLES Fi nal Result Performing Organization Address City/[facility] [[email or web address]] Co de Phone Number [facility]Y [facility] [address] [facility] [place] [employer] [place] [address] * Albumin Creatinine Ratio, Urine (10/10/2024 2:56 PM DRILL PRESS OPERATOR) Albumin Ur 18.2 mg/L Comment: Interpretive Data No reference range established. Current interpretive data was last revised 2019. Creatinine Ur 127.3 mg/dL HARRY Comment: Interpretive Data No reference range established. Current interpretive data was last revised 2019. Albumin Creatinine Ratio, Ur 14 1 - 29 mg/g HARRY Urine 10/10/2024 2:56 PM DRILL PRESS OPERATOR 10/10/2024 9:12 PM DRILL PRESS OPERATOR Arlen Welsh SPORTS COORDINATOR LAB URINE ORDERABLES Final Resu lt [facility] [address] [place] [employer] [place] [address] * Lipid panel (10/10/2024 2:56 PM DRILL PRESS OPERATOR) Cholesterol 171 30 - 199 mg/dL Comment: [...] Pediatrics 2011;128:S213 2. NCEP Expert Panel. Circulation 2003;110:227 Current Interpretive Data was last revised on [...] Pediatrics 2011;128:S213 2. NCEP Expert Panel. Circulation 2003;110:227 Current Interpretive Data was last revised on [...] ratio 3 HARRY Blood 10/10/2024 2:56 PM DRILL PRESS OPERATOR 10/10/2024 9:12 PM DRILL PRESS OPERATOR Arlen Welsh NP LAB BLOOD ORDERABLES Final Resu lt HARRY [place] [address] [address] Department of Laboratories [place] [id number] * Diabetic Eye Exam (01/10/2023) Historical Provider HEALTH MAINTENANCE Final Result from Last 3 Months or Most Recently Relevant to Health Maintenance Insurance [facility] MEDICARE ADVANTAGE [facility]IC[facility] Address: [place] [id number] [place] [address] [facility] MEDIC[facility] Address: [address] [address] [facility] MEDIC[facility] Address: [address] [place] [phone] Advance Directives For more information, please contact: [phone] * Full Code (Latest Code Status on File) Date Activated Date Inactivated Comments 02/15/2020 3:21 PM 02/18/2020 4:01 PM Care Teams Soil Conservation Technician Relationship Specialty Start Date End Date Jairo Kirby DO [address] [place] [address] PCP - General Family Medicine 11/13/20
--- OUTSIDE RECORDS SUMMARY | 2025-06-10 08:16 | XMS_ITS | Encounter Summary ---
Author Organization [facility] Healthcare Address [address] [place] [address] Care Team Providers Care Immigration Case Manager Name Role Phone Jairo Kirby DO Primary Care Provider Encounter Details Date Type Department Care Team (Late st Contact Info) Description 11/09/2023 Documentation [facility] Surgeon [address] [place], [place] [id number] Reji Shaver MD [address] [facility] [phone] [place] [address] Social History Tobacco Use Types Packs/Day Years [...] on file Legal Sex Male 8:29 PM GENERAL INTERNAL MEDICINE DOCTOR Gender Identity Male 10/17/2020 1:52 PM GENERAL INTERNAL MEDICINE DOCTOR Sexual Orientation Straight 10/17/2020 1: 52 PM GENERAL INTERNAL MEDICINE DOCTOR documented as of this encounter Plan of Treatment Not on file documented as of this encounter Visit Diagnoses Not on filedocumented in this encounter Care Teams Immigration Case Manager Relationship Specialty Start Date End Date Jairo Kirby DO [address] [place] [address] PCP - General Family Medicine 11/13/20 documented as of this encounter
--- NOTE | 2025-07-07 08:31 | WPDSLEEPSTUD ---
Sleep Study Date of Study: 06/10/25 Ordering Provider: Johanna Arnett APRN Interpreting Physician: Mirian Torrez MD Sleep Study Type: Split Polysomnogram Height: 1.73 m Weight: 122.016 kg Body Mass Index: 40.8 Neck Circumference (inches): 20 [place]: 15 Reason for Sleep Study Hypersomnolence Sleep History Carli Gates is a 45-year-old man with PTSD, depression, fibromyalgia, hypertension, hyperlipidemia, migraine, diabetes, hyperthyroidism and Meniere's disease. His complains that he sounds like he is choking when he is sleep especially if he is on his back so he is now always sleeping on his side. He occasionally awakens from sleep feeling short of breath. He constantly wakes at night with heartburn, belching or coughing.??He occasionally snores, and occasionally snores loudly enough that others complain. He frequently has trouble sleeping when he has a cold. He occasionally wakes up gasping for breath during the night. He occasionally has breathing problems at night. He always sweats excessively at night. He constantly notices his heart pounding or beating irregularly during the night. He frequently falls asleep during the day. He rarely falls asleep involuntarily, never falls asleep while driving. He rarely experiences loss of muscle tone with strong emotion. He never has daytime difficulty at work due to excessive sleepiness. He never feels paralyzed on waking or falling asleep. He rarely experiences vivid dreams upon waking or falling asleep. He never feels afraid of going to sleep. He frequently has nightmares. He rarely recalls his dreams. He rarely has thoughts racing through his mind. He frequently feels sad or depressed. He occasionally feels anxiety. He frequently notices parts of his body jerk. He constantly kicks during the night. He constantly feels crawling or aching feelings in his legs. He constantly feels leg pain at night. He rarely has morning jaw pain, frequently grinds his teeth at night. He constantly feels bothered by pain during the day, frequently awakened by pain during the night. He always wakes up feeling stiff in the morning, and he always wakes feeling sore or achy. He constantly awakens with pain in his neck, spine, or joints. he has memory problems, concentration difficulties and episodes of fainting associated with Meniere's disease. Normal bedtime varies, taking 1-2 hours to fall asleep, waking between 4 and 5 times during the night and not being able to get back to sleep. He watches television while he is awake. He does not have a fixed wake-up time. He reports getting between 2-3 hours of sleep at night. He tries to sleep more on weekends. He takes naps in the afternoon or evening however short nap lasting 10-15 minutes is not refreshing. He is drowsy for 3 hours after waking. Habits:??Tobacco: never smoker Caffeine:yes, 2 pots per day per office note Alcohol: none Recreational substances: none PMFSH Past Medical History Medical History Severe hearing loss History of stress test Obesity, Class III, BMI 40-49.9 (morbid obesity) PTSD (post-traumatic stress disorder) Depression IBS (irritable bowel syndrome) Headache, chronic migraine without aura Torsion of testicle Hypertension Diabetes mellitus Surgical History Surgical History History of testicular surgery History of placement of ear tubes History of liver biopsy History of eye surgery Family History Family History Other Family history of malignant neoplasm Hypertension Social History Social History Smoking status: Never smoker Alcohol intake: never Substance use: never Substance use type: does not use Lack of Transportation: No Lack of Food: Never True Current Housing: I Have Housing Concerned About Future Housing: No Difficulty Paying Gas/Electric Bills: No Difficulty Paying for Meds: No Currently Unemployed: No Education: High School Diploma/GED Difficulty w/ Childcare or Family Care: No Gender identity (if verbalized by the patient): Male Medications Home Medications ?Medication ?Instructions ?Recorded ?Confirmed ?Type famotidine 20 mg tablet 20 mg PO BID 09/22/20 04/02/25 History omeprazole 40 mg capsule,delayed 40 mg PO BID 09/22/20 04/02/25 History release blood sugar diagnostic (Blood #100 ea 02/03/22 04/02/25 Rx Glucose Test strips) empty container (SharpSafety #3 ea 07/09/22 04/02/25 Rx Container) pen needle, diabetic 31 gauge x #100 ea 07/09/22 04/02/25 Rx 5/16 (1st Tier Unifine Pentips) dapagliflozin propanediol 10 mg 10 mg PO DAILY 01/05/24 04/02/25 History tablet galcanezumab-gnlm 120 mg/mL 120 mg subcut MONTHLY 01/05/24 04/02/25 History subcutaneous pen injector (Emgality Pen) insulin lispro-aabc 100 unit/mL 1 sliding scale dose subcut 01/05/24 04/02/25 History subcutaneous solution (Lyumjev USEASDIRECTD U-100 Insulin) meclizine 25 mg tablet 25 mg PO TID 01/05/24 04/02/25 History rizatriptan 10 mg tablet 10 mg PO ONCE 01/05/24 04/02/25 History rosuvastatin 20 mg tablet 20 mg PO DAILY 01/05/24 04/02/25 History sucralfate 1 gram tablet PO 01/05/24 04/02/25 History bupropion HCl 300 mg 24 hr tablet, 300 mg PO QAM #90 tabs 04/18/24 04/02/25 Rx extended release colchicine 0.6 mg tablet See Rx Instructions PO DAILY #6 05/23/24 04/02/25 Rx tabs azelastine 137 mcg (0.1 %) nasal 137 mcg (0.137 mL) intranasal Q12H 07/03/24 04/02/25 Rx spray #30 mL ipratropium bromide 42 mcg (0.06 2 spray intranasal TID PRN allergy 07/03/24 04/02/25 Rx %) nasal spray symptoms #15 mL azelastine 0.05 % eye drops 1 drp EACH EYE BID PRN allergic 07/17/24 04/02/25 Rx conjunctivitis #6 mL prazosin 2 mg capsule 2 mg PO QHS #30 caps 07/27/24 04/02/25 Rx milnacipran 12.5 mg (5)-25 See Rx Instructions PO PER PKG DIR 10/04/24 04/02/25 Rx mg(8)-50mg(42) tablets in a dose #55 ea pack (Savella) blood-glucose,director audience marketing,cont #1 ea 01/16/25 04/02/25 History (Dexcom G7 Clinical Informatics Specialist) insulin pump cart,cont inf,BT #5 ea 01/16/25 04/02/25 History (Omnipod Dash Pods (Gen 4) subcutaneous cartridge) methimazole 10 mg tablet mg PO DAILY 01/16/25 04/02/25 History methocarbamol 500 mg tablet mg PO ONCE 01/16/25 04/02/25 History tirzepatide 2.5 mg/0.5 mL mg subcut 01/16/25 04/02/25 History subcutaneous pen injector (Mounjaro) prednisone 10 mg tablet 10 mg PO DIRECTED #21 tabs 04/02/25 04/02/25 Rx triamcinolone acetonide 0.1 % 1 applic topical BID PRN itching 04/02/25 04/02/25 Rx topical ointment #80 grams dicyclomine 20 mg tablet 20 mg PO QID PRN abdominal pain 05/30/25 05/30/25 Rx #30 tabs ondansetron 4 mg disintegrating 4 mg PO Q8H PRN nausea and 05/30/25 05/30/25 Rx tablet vomiting #20 tabs amlodipine 10 mg tablet See Rx Instructions .Route 06/28/25 Rx .COMPLEX #90 tabs Sleep Procedure A split night polysomnogram using the [employer] multi-channel system recorded the standard physiologic parameters including EEG, EOG, submentalis EMG, anterior tibialis EMG, EKG, body position, nasal and oral airflow using nasal pressure sensor and thermistor. Respiratory parameters of chest and abdominal movements were recorded with Respiratory Inductance Plethysmography belts. Oxygen saturation was recorded by pulse oximetry. Video monitoring was also performed. Sleep stages, periodic limb movements, and EEG arousals were scored in 30 second epochs according to the criteria of the AASM Scoring Manual. The Apnea-Hypopnea Index was calculated using CMS guidelines for definition of hypopnea while scoring respiratory events. he did not take a sleep aid at the beginning of the study. After the baseline portion the patient met criteria for a titration with an AHI of 26 (p>4%) and desaturation to 89%. Initially he wanted to try a nasal mask but after trying a medium ResMed air Touch F20 fullface mask, this is what he used. He was initially started at 5 cm titrated to 6 cm, 7 cm, 8 cm and the final pressure was 8 cm with 2 cm of EPR. Shortly after this final pressure started he called out and wanting to end this study due to the pain from his fibromyalgia. with heated humidity, he was titrated from an initial pressure of CPAP 5 Sleep Architecture During the diagnostic portion of the study, the total recording time was 225.4 minutes. The total sleep time was 127.0 minutes. Sleep latency was 9.9 minutes. REM latency was - minutes. Sleep Efficiency was 56.3%. The patient had 37 awakenings for an awakening index of 17.5. Wake after sleep onset time was 88.5 minutes. The patient spent 28.0 minutes, 22.0% of total sleep time in Stage N1. The patient spent 98.5 minutes, 77.6% in Stage N2. The patient spent 0.5 minutes, 0.4% in Stage N3. The patient spent 0.0 minutes, 0.0% in Stage REM sleep. At 02:14:23 AM the patient was placed on PAP treatment. During the treatment portion of the study, the total recording time was 187.2 minutes. The total sleep time was 99.5 minutes. Sleep latency was 28.5 minutes. REM latency was 79.5 minutes. Sleep Efficiency was 53.1%. Wake after Sleep Onset time was 59.0 minutes. The patient spent 8.5 minutes, 8.5% of total sleep time in Stage N1. The patient spent 56.0 minutes, 56.3% in Stage N2. The patient spent no time in Stage N3. The patient spent 35.0 minutes, 35.2% in Stage REM. Respiratory Analysis During the diagnostic portion of the study, the patient had 54 hypopneas, no obstructive apneas, no mixed apneas, and 1 central apnea for an overall Apnea Hypopnea Index of 26.0 events per hour. The REM Apnea Hypopnea Index was 0 as he had no REM on the baseline. The NREM Apnea Hypopnea Index was 26.0. The patient had a Central Apnea Hypopnea Index of 0.5. There were no Respiratory Effort Related Arousal. The Respiratory Disturbance Index is 35.0 events per hour. There was no evidence of Martir-Davis Respirations. All sleep was in the supine position. During the treatment portion of the study, the patient had 14 hypopneas, no obstructive apneas, no mixed apneas, and 4 central apneas for an overall Apnea Hypopnea Index of 10.9 events per hour. The REM Apnea Hypopnea Index was 5.1. The NREM Apnea Hypopnea Index was 14.0. The patient had a Central Apnea Hypopnea Index of 2.4. There were no Respiratory Effort Related Arousals. The Respiratory Disturbance Index is 15.1 events per hour. There was no evidence of Martir-Davis Respirations. Arousals During the diagnostic portion of the study, there were a total of 131 arousals for an arousal index of 61.9. There were 43 respiratory arousals for an index of 20.3. There were 5 periodic limb movement arousals for an index of 2.4. There were 11 isolated limb movement arousals for an index of 5.2. There were 74 spontaneous arousals for an index of 35.0. During the treatment portion of the study, there were a total of 55 arousals for an index of 33.2. There were 6 respiratory arousals for an index of 3.6. There were no periodic limb movement arousals. There were 23 isolated limb movement arousals for an index of 13.9. There were 26 spontaneous arousals for an index of 15.7. Periodic Limb Movements During the diagnostic portion of the study, the patient had 14 isolated limb movements with an index of 6.6. The patient had 5 periodic limb movements with an index of 2.4. The patient had a total of 19 limb movements with a total limb movement index of 9.0. During the treatment portion of the study, the patient had 35 isolated limb movements with an index of 21.1. The patient had no periodic limb movements. The patient had a total of 35 limb movements with a total limb movement index of 21.1. Oximetry Data During the diagnostic portion of the study, the patient had an average oxygen saturation of 95% in wake with a minimum oxygen saturation of 89% and a maximum oxygen saturation of 99%. The patient had an average oxygen saturation of 93.7% in sleep with a minimum oxygen saturation of 89% and a maximum oxygen saturation of 98%. The patient had 75 oxygen desaturations resulting in an Oxygen Desaturation Index of 35.4. The patient spent no time with an oxygen saturation less than 88%. During the treatment portion of the study, the patient had an average oxygen saturation of 95.8% in wake with a minimum oxygen saturation of 91% and a maximum oxygen saturation of 99%. The patient had an average oxygen saturation of 95% in sleep with a minimum oxygen saturation of 91% and a maximum oxygen saturation of 98%. The patient had 23 oxygen desaturations resulting in an Oxygen Desaturation Index of 13.9. The patient spent no sleep time with an oxygen saturation less than 88%. Snoring Profile During the diagnostic portion, snoring was mild and intermittent, eliminated at the optimal pressure. Cardiac Profile During the diagnostic portion of the study, the EKG showed normal sinus rhythm. The average pulse rate was 68 bpm. The minimum pulse rate was 56 bpm. The maximum pulse rate was 108 bpm. He had occasional PVCs and PACs. During the treatment portion of the study, the EKG showed normal sinus rhythm. The average pulse rate was 68 bpm, minimum pulse rate was 54, an the maximum pulse rate was 109 bpm. Occasioanl PVC and PAC. EEG Profile Unremarkable, no evidence of seizures. Assessment and Plan Assessment and Plan (1) LAURA (obstructive sleep apnea): Code(s): G47.33 - Obstructive sleep apnea (adult) (pediatric) Status: Acute Assessment and Plan: This split night sleep study on 06/10/2025 shows moderate to severe obstructive sleep apnea, the apnea-hypopnea index was 26 ( p>4%) with desaturation to 89% without REM on the baseline. He had extremely fragmented sleep. He used a medium ResMed AirTouch F20 fullface mask with heated humidity with the optimal pressure on this study CPAP 8 cm. At this pressure, the patient spent 35 minutes in bed, 7 minutes in non-REM, 28 minutes in REM with sleep efficiency of 100% and and residual apnea-hypopnea index of 5.1. His lowest saturation was 91%. Sleep was consolidated. He had REM on his back. He had few centrals throughout the titration. CPAP 8 cm is the optimal pressure. The patient should be prescribed this ResMed equipment as well as tubing, filters and reservoir. This should be used with all episodes of sleep. Compliance should be reviewed within 31-90 days of starting therapy for usage greater than 4 hours per night greater than 70% of the nights. The patient should be asked about symptoms such as excessive daytime sleepiness, quality of sleep, decreased nocturia, increased mental functioning such as memory, mood, and concentration. His sleep survey indicates that he frequently grinds his teeth at night. Bruxism was not noted on this study however he may improve with initiation of CPAP. Bruxism is often seen with untreated obstructive sleep apnea. I recommend further follow-up with his dentist if he continues to grind his teeth at night. He may need a mouth guard in addition to CPAP. BMI is 40. Weight management is advised. Clinical data suggests that weight loss of 10% can reduce the severity of respiratory events and snoring and improve AHI by as much as 25%. (2) Restless leg syndrome: Code(s): G25.81 - Restless legs syndrome Status: Acute Assessment and Plan: He has constant discomfort in his legs with complaints of kicking at night and having leg pain at night. He has degenerative joint disease with pain in the hip and low back. He has diabetes which is associated with restless legs syndrome and periodic limb movement. He did not have exxcessive kicking on this study. Ferritin level is indicated to exclude iron deficiency anemia as a contributing factor. Ferritin should be 75 ng/mL or greater. If ferritin is below this, iron supplementation should be given to achieve ferritin of 75 ng/mL. There are nonpharmacologic methods to treat limb movements including daily exercise, stretching calf muscles before bed, avoiding excessive amounts of caffeine and alcohol, vitamin B supplementation, magnesium lotion massaged into legs before bed, and use of a weighted blanket. Pharmacologic therapy is very effective for restless legs syndrome and limb movements during sleep and may include [id number] voltage-gated calcium channel ligands such as gabapentin which is preferable to dopaminergic agents which can have augmentation. (3) Inadequate sleep hygiene: Code(s): Z72.821 - Inadequate sleep hygiene Status: Acute Assessment and Plan: He has no set bed time or wake up time, and naps in the day. Intermittent sleeping will make it difficult for him to adapt to wearing CPAP. He should stay awake for at least 8 hours before wearing CPAP. Please see recommendations for good sleep hygiene. Recommendations to improve sleep quality include: ? Practice a bedtime routine and keep the same sleep schedule including bedtime and wake up time, even on the weekends. Consistency makes it much easier to fall asleep and wake easily. ? If you have trouble sleeping at night, avoid naps, especially in the late afternoon. However, short naps lasting approximately 20 minutes can help alleviate daytime fatigue, sleepiness, and even provide cognitive benefit. Naps longer than 30 minutes can cause sleep inertia, a period of reduced alertness and cognitive performance after waking. ? Exercise daily. ? Maintain a sleep environment conducive to sleep. The bedroom should be comfortably cool. In population studies, nocturnal environmental light and noise significantly impact sleep quality and quantity. Use of blackout curtains, ear plugs, or sound machines may help promote an optimal sleep environment for individuals with sleep disruptions due to environmental stimuli. ? Sleep on a comfortable mattress and pillows. ? Regular bright light exposure in the mornings may help to maximize alertness and maintain a regular circadian rhythm. Studies in extreme latitudes where sunlight is minimal in the winter have found that an hour of exposure to white light in the morning helped subjects go to sleep earlier and wake earlier. Exposure to blue light in the morning may have more robust effects on the stability of the circadian rhythm and has been shown to improve daytime fatigue and sleepiness. ? Avoid cigarettes, caffeine, and heavy meals in the evening. While alcohol use does seem to reduce the time it takes to fall asleep, studies have reported that evening alcohol intake can cause more waking time or light sleep in the second half of the night and reduce self-reported sleep quality. Evening nicotine is associated with lower sleep efficiency and more awake time during the night. ? Wind down with quiet activities that may promote sleep, such as reading with a dim light. Avoid use of electronics at least 30 minutes before habitual bedtime and in the middle of the night if nocturnal awakenings occur. The blue light emitted from computer screens and hand-held devices can suppress natural melatonin production, resulting in difficulty falling asleep; however, the exact duration of use and intensity of lighting that cause this effect are variable in the literature. ? If you cannot sleep, do not look at a clock. Go into another room and do something relaxing until you feel drowsy enough to fall asleep again. Then return to bed. Data The data obtained during this sleep study is adequate for interpretation. Certification This sleep study has been reviewed by a board certified sleep medicine physician.
== END 2025-06-11 06:08 | disposition home or self-care (01) ==
LOC: ANHCSM 07:51
PROVIDERS: PCP Family Medicine; Visit Provider Nurse Practitioner Family
DX: G47.33 Obstructive sleep apnea (adult) (pediatric) (principal)
CPT/HCPCS: 95811